=== PATIENT | male | born 1990 | race Caucasian/White ===

== ENCOUNTER 2020-01-28 13:23 | Inpatient (IN) | payer OTHER ==
[~2020-01-28] VITALS: Ht 175.3 cm; Wt 106.7 kg
[2020-01-28] MEDS ORDERED: MIRT1TAB16 PO (13:38)
[2020-01-28] MEDS ORDERED: HYDR-643 PO (13:38)
[2020-01-28] MEDS ORDERED: NS 1,000 ML IV ONE ×2 (14:15→15:00)
[2020-01-28] MEDS ORDERED: ONDANSETRON 4MG/2ML VIAL IV ONE (14:15)
--- NOTE | 2020-01-28 14:30 | REPVR ---
PROCEDURE INFORMATION: Exam: XR Chest, 1 View Exam date and time: 01/28/2020 2:21 PM Age: 29 years old Clinical indication: Shortness of breath; Additional info: Abdominal pain TECHNIQUE: Imaging protocol: XR of the chest Views: 1 view. COMPARISON: No relevant prior studies available. FINDINGS: Lungs: Unremarkable. No consolidation. Pleural space: Unremarkable. No pleural effusion. No pneumothorax. Heart/Mediastinum: Unremarkable. No cardiomegaly. Bones/joints: Unremarkable. IMPRESSION: No acute findings. Electronically signed by: Jennifer Christensen On 01/28/2020 14:31:01 PM
[2020-01-28 14:31] LABS: BASO # 0.1 10^3/uL (0.0-0.2); BASO % 0.4 % (0.0-1.0); EOS # 0.1 10^3/uL (0.0-0.5); EOS % 0.3 % (0.0-3.0); HEMATOCRIT 45.4 % (42.0-52.0); HEMOGLOBIN 16.6 g/dl (13.5-17.5); LYMPH # 2.1 10^3/uL (1.5-5.0); LYMPH % 11.7 % (24.0-44.0); MEAN CORPUSCULAR HEMOGLOBIN 33.3 pg (27.0-33.0); MEAN CORPUSCULAR VOLUME 91.2 fl (80.0-96.0); MONO # 0.9 10^3/uL (0.0-0.8); MONO % 4.8 % (0.0-5.0); NEUTROPHILS % 82.1 % (36.0-66.0); PLATELET COUNT, AUTOMATED 206 10^3/uL (150-450); RED BLOOD COUNT 4.98 10^6/uL (4.30-6.10); WHITE BLOOD COUNT 18.3 10^3/uL (4.0-10.0)
[2020-01-28 14:41] LABS: INR 1.04; PROTHROMBIN TIME 13.8 SECONDS (11.8-14.0)
[2020-01-28 14:42] LABS: PARTIAL THROMBOPLASTIN TIME 23.6 SECONDS (25.0-38.4)
[2020-01-28] MEDS ORDERED: ISOVUE-370 76% 100ML VIAL As Ordered ONE (14:42)
[2020-01-28] MEDS: HYDROMORPHONE HCL 0.5 MG/ 0.5 ML SYRINGE (J1170 PER 1) IV PRN ×2 (14:42→16:07)
[2020-01-28 14:49] LABS: MEAN CORPUSCULAR HGB CONC 36.6 g/dl (32.0-36.5)
[2020-01-28 14:52] LABS: ALBUMIN 4.2 GM/DL (3.2-5.2); ALT/SGPT 46 U/L (12-78); AMYLASE 316 U/L (25-115); BILIRUBIN,DIRECT 0.1 MG/DL (0.0-0.2); BILIRUBIN,TOTAL 0.5 MG/DL (0.2-1.0); CK-MB VALUE MASS < 1.0 NG/ML (<3.6); CPK CREATINE PHOSPHOKINASE 138 U/L (39-308); LIPASE 4086 U/L (73-393); MB/CK RELATIVE INDEX 0.72 (< OR =4); TROPONIN I < 0.02 NG/ML (< 0.10)
--- NOTE | 2020-01-28 15:45 | REPVR ---
PROCEDURE INFORMATION: Exam: CT Abdomen And Pelvis With Contrast Exam date and time: 01/28/2020 3:11 PM Age: 29 years old Clinical indication: Abdominal pain; Additional info: Pancreatitis TECHNIQUE: Imaging protocol: Computed tomography of the abdomen and pelvis with intravenous contrast. Radiation optimization: All CT scans at this facility use at least one of these dose optimization techniques: automated exposure control; mA and/or kV adjustment per patient size (includes targeted exams where dose is matched to clinical indication); or iterative reconstruction. Contrast material: ISO 370; Contrast volume: 100 ml; Contrast route: INTRAVENOUS (IV); COMPARISON: No relevant prior studies available. FINDINGS: Liver: Normal. No mass. Gallbladder and bile ducts: Incidental adenomyomatosis of the gallbladder wall fundus. No calcified stones. No ductal dilation. Pancreas: Moderate peripancreatic edema. No evidence of pancreatic parenchymal necrosis. No loculated peripancreatic fluid collection. Spleen: Normal. No splenomegaly. Adrenals: Normal. No mass. Kidneys and ureters: Normal. No hydronephrosis. Stomach and bowel: There appears to be mild circumferential wall thickening of the 2nd and 3rd portions of the duodenum. Appendix: No evidence of appendicitis. Intraperitoneal space: Unremarkable. No free air. No significant fluid collection. Vasculature: The splenic vein is patent. Lymph nodes: Unremarkable. No enlarged lymph nodes. Bladder: Unremarkable as visualized. Reproductive: Unremarkable as visualized. Bones/joints: Unremarkable. No acute fracture. Soft tissues: Unremarkable. IMPRESSION: 1. Acute edematous pancreas. 2. Mild reactive duodenitis. Electronically signed by: Jennifer Christensen On 01/28/2020 15:45:43 PM
[2020-01-28] MEDS ORDERED: REME30TA PO (16:01)
[2020-01-28] MEDS ORDERED: ONDANSETRON 4MG/2ML VIAL IV PRN (16:30)
[2020-01-28] MEDS: NS 1,000 ML IV SCH (16:30)
--- NOTE | 2020-01-28 16:45 | HPEPDOC ---
General Date of Admission Date of Service: Jan 28, 2020 Chief Complaint The patient is a 29-year-old male admitted with a reason for visit of Abd Pain. Source: Patient Timing/Duration: Day(s) (1-2 days) Severity: Severe Associated Symptoms: Nausea, Vomiting History of Present Illness 29 YO male with PMhx of psych Dx as well hax of pancreatitis in the past, developed insidiously increasing pain in LUQ of abdomen, which is sharp, persistant, non radiating, associated with N/V, not relieved with meds and not exacerbatted by food since last 1 to 2 days. According to pt he drinks infrequently but he drank a pint of hard liquor last night. Home Medications Scheduled Mirtazapine (Remeron) 30 Mg Tablet, 30 MG PO QHS, (Reported) Scheduled PRN Hydroxyzine HCl (Hydroxyzine HCl) 10 Mg Tablet, 10 MG PO Q6H PRN for ANXIETY, (Reported) Allergies Coded Allergies: No Known Allergies (Unverified , 01/28/20) Past Medical History Medical History pancreatitis,psych disorder Family History Significant Family History: No pertinent family hx family history reviewed, no significant history Social History * Smoker: cigarettes Alcohol: rarely Drugs: denies A-FIB/CHADSVASC A-FIB History Current/History of A-Fib/PAF?: No Review of Systems Constitutional: Denies: Chills, Fever, Malaise, Night Sweats, Weakness, Fatigue, Weight Loss, Lethargy, Other Eyes: Denies: Pain, Vision change, Conjunctivae inflammation, Eyelid inflammation, Redness, Other ENT: Denies: Head Aches, Ear Pain, Dysphagia, Sinus Congestion, Post Nasal Drip, Sore Throat, Epistaxis, Other Symptoms Skin: Denies: Rash, Lesions, Jaundice, Bruising, Itching, Dry, Breakdown, Nail Changes, Other Pulmonary: Denies: Dyspnea, Cough, Pleuritic Chest Pain, Other Symptoms Cardiovascular: Denies: Chest Pain, Palpitations, Orthopnea, Paroxysmal Noc. Dyspnea, Edema, Lt Headedness, Other Symptoms Gastrointestinal: Reports: Nausea, Vomiting, Abdominal Pain Genitourinary: Denies: Dysuria, Frequency, Incontinence, Hematuria, Retention, Other Symptoms Hematologic: Denies: Bruising, Bleeding Excessively, Petecchia, Purpura, Enlarged Lymph Nodes, Other Hematologic Endocrine: Denies: Polydipsia, Polyphagia, Polyuria, Heat Intolerance, Cold Intolerance, Other Endocrine Sx Musculoskeletal: Denies: Neck Pain, Back Pain, Shoulder Pain, Arm Pain, Hand Pain, Leg Pain, Foot Pain, Joint Pain, Muscle Pain, Spasms, Other Symptoms Neurological: Denies: Weakness, Numbness, Incoordination, Change in speech, Confusion, Seizures, Other Symptoms Psych: Denies: Mood Normal, Anxiety, Depression, Memory Issues, Thoughts of Self Harm, Anger, Thoughts of Harming Other, Other Psych Physical Examination General Exam: Positive: Alert, Cooperative Eye Exam: Positive: PERRLA, Conjunctiva & lids normal ENT Exam: Positive: Atraumatic Neck Exam: Positive: Supple, JVD Chest Exam: Positive: Clear to auscultation Heart Exam: Positive: Rate Normal, Normal S1, Normal S2 Abdomen Exam: Positive: Normal bowel sounds, Soft, Tenderness (LUQ) Extremity Exam: Positive: Normal pulses Skin Exam: Positive: Nl turgor and temperature Neuro Exam: Positive: Strength at 5/5 X4 ext, Cranial Nerves 3-12 NL Psych Exam: Positive: Mood NL, Oriented x 3 Vital Signs Vital Signs Date Time Temp Pulse Resp B/P (MAP) Pulse Ox O2 Delivery O2 Flow Rate FiO2 01/28/20 16:07 18 135/88 100 01/28/20 13:23 98.4 83 Room Air Laboratory Data Labs 24H Laboratory Tests 2 01/28/20 13:23: Immature Granulocyte % (Auto) 0.7, Neutrophils (%) (Auto) 82.1H, Lymphocytes (%) (Auto) 11.7L, Monocytes (%) (Auto) 4.8, Eosinophils (%) (Auto) 0.3, Basophils (%) (Auto) 0.4, Neutrophils # (Auto) 15.0H, Lymphocytes # (Auto) 2.1, Monocytes # (Auto) 0.9H, Eosinophils # (Auto) 0.1, Basophils # (Auto) 0.1, Nucleated Red Blood Cells % (auto) 0.0, Prothrombin Time 13.8, Prothromb Time International Ratio 1.04, Activated Partial Thromboplast Time 23.6L, Lactic Acid Level 3.4*H, Total Bilirubin 0.5, Direct Bilirubin 0.1, Aspartate Amino Transf (AST/SGOT) 28, Alanine Aminotransferase (ALT/SGPT) 46, Alkaline Phosphatase 99, Total Creatine Kinase 138, Creatine Kinase MB < 1.0, Creatine Kinase MB Relative Index 0.72, Troponin I < 0.02, Total Protein 8.0, Albumin 4.2, Albumin/Globulin Ratio 1.1, Amylase Level 316H, Lipase 4086H CBC/BMP Laboratory Tests 01/28/20 13:23 Problems (1) Acute pancreatitis Status: Acute Plan / VTE VTE Prophylaxis Ordered?: Yes Plan Plan Admit to med/surg floor IVF NS at 100cc/Hr Morphine Sulfate 4mg IVP q 4Hr PRN Zofran 4 mg IVP q 4Hr PRN Protonix 40mg IVP daily Clear liquids Activity as tolerated Urine tox screen and serum Etoh levels Ativan i mg q4 Hr PRN Lovenox for DVT prophylaxis am labs smoking cessation councelling done at bedside ARNULFO DOWLING MD Jan 28, 2020 16:45
[2020-01-28] MEDS: PANTOPRAZOLE 40MG VIAL (C9113 PER 1) IV SCH (17:57)
[2020-01-28] MEDS: MORPHINE 4 MG/ML 1ML VIAL/SYRINGE (J2270) IV PRN ×3 (18:10→23:47)
[2020-01-28] MEDS: LORazepam 2 MG/ML VIAL IV PRN ×2 (19:31→23:48)
[2020-01-28 20:22] LABS: BLOOD UREA NITROGEN 10 MG/DL (7-18); CALCIUM LEVEL 8.4 MG/DL (8.5-10.1); CARBON DIOXIDE LEVEL 26 MEQ/L (21-32); CHLORIDE LEVEL 108 MEQ/L (98-107); CREATININE FOR GFR 0.92 MG/DL (0.70-1.30); ETHYL ALCOHOL (ETHANOL) < 0.003 % (0.000-0.010); GLOMERULAR FILTRATION RATE > 60.0 (>60); GLUCOSE, FASTING 107 MG/DL (70-100); MAGNESIUM LEVEL 1.6 MG/DL (1.8-2.4); POTASSIUM SERUM 3.7 MEQ/L (3.5-5.1); SODIUM LEVEL 139 MEQ/L (136-145)
[2020-01-28 20:43] VITALS: BP 170/107
[2020-01-28] MEDS: ACETAMINOPHEN TAB 650MG DOSE (2X325MG) PO PRN (20:50)
[2020-01-28 22:08] VITALS: BP 136/89
[2020-01-28] MEDS ORDERED: HYDROmorphone 2 MG TAB PO ONE (22:30)
[2020-01-28] MEDS ORDERED: LR 1,500 ML IV SCH (22:45)
[2020-01-28] MEDS: MAG SULF 1GM/100ML (MAG RUN) 1 GM in IV 1 EA IV SCH ×2 (22:55→23:47)
[2020-01-28 23:28] LABS: PHOSPHORUS LEVEL 4.2 MG/DL (2.5-4.9)
[2020-01-29] MEDS: MORPHINE 4 MG/ML 1ML VIAL/SYRINGE (J2270) IV PRN ×5 (04:00→22:50)
[2020-01-29] MEDS: ACETAMINOPHEN TAB 650MG DOSE (2X325MG) PO PRN ×2 (05:52→16:53)
[2020-01-29 06:00] VITALS: BP 116/78
[2020-01-29] MEDS: LORazepam 2 MG/ML VIAL IV PRN (06:07)
[2020-01-29 07:04] LABS: HEMATOCRIT 40.5 % (42.0-52.0); MEAN CORPUSCULAR HGB CONC 35.8 g/dl (32.0-36.5); PLATELET COUNT, AUTOMATED 136 10^3/uL (150-450); WHITE BLOOD COUNT 12.2 10^3/uL (4.0-10.0)
[2020-01-29 07:05] LABS: HEMOGLOBIN 14.5 g/dl (13.5-17.5)
[2020-01-29 07:37] LABS: ALBUMIN 3.2 GM/DL (3.2-5.2); ALT/SGPT 30 U/L (12-78); BLOOD UREA NITROGEN 8 MG/DL (7-18); CALCIUM LEVEL 8.2 MG/DL (8.5-10.1); CARBON DIOXIDE LEVEL 28 MEQ/L (21-32); CHLORIDE LEVEL 104 MEQ/L (98-107); CREATININE FOR GFR 0.91 MG/DL (0.70-1.30); GLOMERULAR FILTRATION RATE > 60.0 (>60); GLUCOSE, FASTING 103 MG/DL (70-100); MAGNESIUM LEVEL 2.2 MG/DL (1.8-2.4); POTASSIUM SERUM 3.7 MEQ/L (3.5-5.1); SODIUM LEVEL 136 MEQ/L (136-145); TOTAL PROTEIN 6.3 GM/DL (6.4-8.2)
[2020-01-29] MEDS ORDERED: ENOXAPARIN 40MG/0.4ML SYRINGE (J1650 PER 10MG) SC SCH (09:00)
[2020-01-29] MEDS: ENOXAPARIN 40MG/0.4ML SYRINGE (J1650 PER 10MG) SC SCH (09:55)
--- NOTE | 2020-01-29 11:09 | IPNPDOC ---
Subjective Date Seen The patient was seen on 01/29/20. Subjective Chief Complaint/HPI Still has abdominal pain but improved with pain meds,tolerating clear liquids General: Denies: ROS Unobtainable, Chills, Night Sweats, Fatigue, Malaise, Normal Appetite, Other Symptoms Constitutional: Denies: Chills, Fever, Malaise, Night Sweats, Weakness, Fatigue, Weight Loss, Lethargy, Other Pulmonary: Denies: Dyspnea, Cough, Pleuritic Chest Pain, Other Symptoms Cardiovascular: Denies: Chest Pain, Palpitations, Orthopnea, Paroxysmal Noc. Dyspnea, Edema, Lt Headedness, Other Symptoms Gastrointestinal: Reports: Abdominal Pain Genitourinary: Denies: Dysuria, Frequency, Incontinence, Hematuria, Retention, Other Symptoms Hematologic: Denies: Bruising, Bleeding Excessively, Petecchia, Purpura, Enlarged Lymph Nodes, Other Hematologic Endocrine: Denies: Polydipsia, Polyphagia, Polyuria, Heat Intolerance, Cold Intolerance, Other Endocrine Sx Musculoskeletal: Denies: Neck Pain, Back Pain, Shoulder Pain, Arm Pain, Hand Pain, Leg Pain, Foot Pain, Joint Pain, Muscle Pain, Spasms, Other Symptoms Neurological: Denies: Weakness, Numbness, Incoordination, Change in speech, Confusion, Seizures, Other Symptoms Objective Physical Examination Chest Exam: Positive: Clear to auscultation Heart Exam: Positive: Rate Normal, Normal S1, Normal S2 Abdomen Exam: Positive: Normal bowel sounds, Soft, Tenderness (positive at LUQ) Extremity Exam: Positive: Normal pulses Skin Exam: Positive: Nl turgor and temperature Neuro Exam: Positive: Strength at 5/5 X4 ext, Cranial Nerves 3-12 NL Assessment /Plan Problems (1) Acute pancreatitis Status: Acute Problem Text: slowly improving symptoms Lipase still pending today IVF NS at 70cc/Hr Morphine Sulfate 4mg IVP q 4Hr PRN Zofran 4 mg IVP q 4Hr PRN Protonix 40mg IVP daily Continue Clear liquids Activity as tolerated Ativan i mg q4 Hr PRN Lovenox for DVT prophylaxis cbc,cmp and lipase in am Abstenence from ETOH: councelling done Plan/VTE VTE Prophylaxis Ordered?: Yes VS, I&O, 24H, Fishbone Vital Signs/I&O Vital Signs Date Time Temp Pulse Resp B/P (MAP) Pulse Ox O2 Delivery O2 Flow Rate FiO2 01/29/20 09:56 18 01/29/20 06:00 98.6 111 116/78 (91) 98 Room Air I&O- Last 24 Hours up to 6 AM 01/29/20 06:00 Intake Total 1400 ml Output Total 650 ml Balance 750 ml Laboratory Data 24H LABS Laboratory Tests 2 01/28/20 13:23: Immature Granulocyte % (Auto) 0.7, Neutrophils (%) (Auto) 82.1H, Lymphocytes (%) (Auto) 11.7L, Monocytes (%) (Auto) 4.8, Eosinophils (%) (Auto) 0.3, Basophils (%) (Auto) 0.4, Neutrophils # (Auto) 15.0H, Lymphocytes # (Auto) 2.1, Monocytes # (Auto) 0.9H, Eosinophils # (Auto) 0.1, Basophils # (Auto) 0.1, Nucleated Red Blood Cells % (auto) 0.0, Prothrombin Time 13.8, Prothromb Time International Ra linda 1.04, Activated Partial Thromboplast Time 23.6L, Lactic Acid Level 3.4*H, Total Bilirubin 0.5, Direct Bilirubin 0.1, Aspartate Amino Transf (AST/SGOT) 28, Alanine Aminotransferase (ALT/SGPT) 46, Alkaline Phosphatase 99, Total Creatine Kinase 138, Creatine Kinase MB < 1.0, Creatine Kinase MB Relative Index 0.72, Troponin I < 0.02, Total Protein 8.0, Albumin 4.2, Albumin/Globulin Ratio 1.1, Amylase Level 316H, Lipase 4086H 01/28/20 19:38: Anion Gap 5L, Glomerular Filtration Rate > 60.0, Calcium Level 8.4L, Phosphorus Level 4.2, Magnesium Level 1.6L, Ethyl Alcohol Level < 0.003 01/28/20 22:48: Urine Color YELLOW, Urine Appearance CLEAR, Urine pH 5.0, Urine Specific [place] 1.031, Urine Protein NEGATIVE, Urine Glucose (UA) NEGATIVE, Urine Ketones N EGATIVE, Urine Blood 1+H, Urine Nitrite NEGATIVE, Urine Bilirubin NEGATIVE, Urine Urobilinogen 0.2, Urine Leukocyte Esterase NEGATIVE, Urine WBC (Auto) 0, Urine RBC (Auto) 0, Urine Hyaline Casts (Auto) 0, Urine Bacteria (Auto) NEGATIVE, Urine Squamous Epithelial Cells 0, Urine Mucus (Auto) SMALL, Urine Sperm (Auto) 01/29/20 00:20: Lactic Acid Level 1.2 01/29/20 05:58: Nucleated Red Blood Cells % (auto) 0.0, Anion Gap 4L, Glomerular Filtration Rate > 60.0, Calcium Level 8.2L, Magnesium Level 2.2, Total Bilirubin 1.0#, Aspartate Amino Transf (AST/SGOT) 20, Alanine Aminotransferase (ALT/SGPT) 30, Alkaline Phosphatase 83, Total Protein 6.3#L, Albumin 3.2#, Albumin/Globulin Ratio 1.0 CBC/BMP Laboratory Tests 01/28/20 13:23 01/28/20 19:38 01/29/20 05:58 Microbiology Microbiology 01/28/20 Blood Culture, Received Pending 01/28/20 Blood Culture, Received Pending ARNULFO DOWLING MD Jan 29, 2020 11:09
[2020-01-29 11:17] LABS: LIPASE 5273 U/L (73-393)
[2020-01-29 14:00] VITALS: BP 151/89
[2020-01-29] MEDS: NS 1,000 ML IV SCH (14:28)
[2020-01-29] MEDS: PANTOPRAZOLE 40MG VIAL (C9113 PER 1) IV SCH (16:53)
[2020-01-29 22:00] VITALS: BP 147/97
[2020-01-30] MEDS: LORazepam 2 MG/ML VIAL IV PRN ×3 (01:07→10:48)
[2020-01-30] MEDS: MORPHINE 4 MG/ML 1ML VIAL/SYRINGE (J2270) IV PRN ×3 (03:20→12:29)
[2020-01-30 06:00] VITALS: BP 149/91
[2020-01-30 06:01] LABS: BASO % 0.3 % (0.0-1.0); EOS # 0.2 10^3/uL (0.0-0.5); EOS % 2.1 % (0.0-3.0); HEMATOCRIT 38.5 % (42.0-52.0); HEMOGLOBIN 13.9 g/dl (13.5-17.5); LYMPH # 1.5 10^3/uL (1.5-5.0); LYMPH % 16.8 % (24.0-44.0); MEAN CORPUSCULAR HEMOGLOBIN 33.1 pg (27.0-33.0); MEAN CORPUSCULAR HGB CONC 36.1 g/dl (32.0-36.5); MEAN CORPUSCULAR VOLUME 91.7 fl (80.0-96.0); MONO # 0.7 10^3/uL (0.0-0.8); MONO % 8.2 % (0.0-5.0); NEUTROPHILS # 6.3 10^3/uL (1.5-8.5); NEUTROPHILS % 72.3 % (36.0-66.0); PLATELET COUNT, AUTOMATED 113 10^3/uL (150-450); WHITE BLOOD COUNT 8.7 10^3/uL (4.0-10.0)
[2020-01-30 06:30] LABS: ALBUMIN 2.7 GM/DL (3.2-5.2); ALT/SGPT 20 U/L (12-78); BILIRUBIN,TOTAL 1.1 MG/DL (0.2-1.0); BLOOD UREA NITROGEN 5 MG/DL (7-18); CALCIUM LEVEL 7.9 MG/DL (8.5-10.1); CARBON DIOXIDE LEVEL 25 MEQ/L (21-32); CHLORIDE LEVEL 106 MEQ/L (98-107); CREATININE FOR GFR 0.89 MG/DL (0.70-1.30); GLOMERULAR FILTRATION RATE > 60.0 (>60); GLUCOSE, FASTING 82 MG/DL (70-100); LIPASE 1510 U/L (73-393); POTASSIUM SERUM 3.8 MEQ/L (3.5-5.1); SODIUM LEVEL 138 MEQ/L (136-145); TOTAL PROTEIN 5.6 GM/DL (6.4-8.2)
[2020-01-30] MEDS: NS 1,000 ML IV SCH (07:52)
[2020-01-30] MEDS: ENOXAPARIN 40MG/0.4ML SYRINGE (J1650 PER 10MG) SC SCH (07:54)
[2020-01-30] MEDS ORDERED: PROT20TA11 PO (09:47)
--- NOTE | 2020-01-30 13:31 | DS.PDOC ---
Discharge Summary General Date of Admission Jan 28, 2020 at 16:22 Date of Discharge 01/30/20 Discharge Summary PROCEDURES PERFORMED DURING STAY: [None]. ADMITTING DIAGNOSES: 1. [acute pancreatitis]. DISCHARGE DIAGNOSES: 1. [acute pancreatitis]. COMPLICATIONS/CHIEF COMPLAINT: Acute Pancreatitis. HISTORY OF PRESENT ILLNESS: [29 YO male with PMhx of psych Dx as well hax of pancreatitis in the past, developed insidiously increasing pain in LUQ of abdomen, which is sharp, persistant, non radiating, associated with N/V, not relieved with meds and not exacerbatted by food since last 1 to 2 days. According to pt he drinks infrequently but he drank a pint of hard liquor last night.]. HOSPITAL COURSE: [Pt was kept NPO and started on IVF. Pt was also started on Morphine Sulfate 4mg IVP q 4Hr PRN ,Zofran 4 mg IVP q 4Hr PRN, and Protonix 40mg IVP daily Pt responded very well to conservative medical management He tolerated oral feeding today, his lipase has decreased to 1510 Pt will be DC home today Abstenence from ETOH: councelling done]. DISCHARGE MEDICATIONS: Please see below. ALLERGIES: Please see below. PHYSICAL EXAMINATION ON DISCHARGE: VITAL SIGNS: Please see below. GENERAL: [WNL] HEENT: [[place]/EOMI] NECK: [Supple] CARDIOVASCULAR EXAMINATION: [Si S2 regular] RESPIRATORY EXAMINATION: [Clear to A&P] ABDOMINAL EXAMINATION: [Benign] EXTREMITIES: [No CCE] SKIN: [NL] NEUROLOGICAL EXAMINATION: [no focal deficit] PSYCHIATRIC EXAMINATION: [NL] LABORATORY DATA: Please see below. IMAGING: [CT abd:IMPRESSION: 1. Acute edematous pancreas. 2. Mild reactive duodenitis] PROGNOSIS: [good] ACTIVITY: [As tolerated]. DIET: [as tolerated] DISCHARGE PLAN: [home] DISPOSITION: 01 Home, Self-Care. DISCHARGE INSTRUCTIONS: 1. [as above]. ITEMS TO FOLLOWUP ON ON OUTPATIENT: 1. [as above]. DISCHARGE CONDITION: [Stable]. TIME SPENT ON DISCHARGE: 35 minutes. Vital Signs/I&Os Vital Signs Date Time Temp Pulse Resp B/P (MAP) Pulse Ox O2 Delivery O2 Flow Rate FiO2 01/30/20 12:39 20 Room Air 01/30/20 06:00 99.3 102 149/91 (110) 95 I&O- Last 24 Hours up to 6 AM 01/30/20 06:00 Intake Total 2600 ml Output Total 1450 ml Balance 1150 ml Laboratory Data Labs 24H Laboratory Tests 2 01/30/20 05:15: Immature Granulocyte % (Auto) 0.3, Neutrophils (%) (Auto) 72.3H, Lymphocytes (%) (Auto) 16.8L, Monocytes (%) (Auto) 8.2H, Eosinophils (%) (Auto) 2.1, Basophils (%) (Auto) 0.3, Neutrophils # (Auto) 6.3, Lymphocytes # (Auto) 1.5, Monocytes # (Auto) 0.7, Eosinophils # (Auto) 0.2, Basophils # (Auto) 0.0, Nucleated Red Blood Cells % (auto) 0.0, Anion Gap 7L, Glomerular Filtration Rate > 60.0, Calcium Level 7.9L, Total Bilirubin 1.1H, Aspartate Amino Transf (AST/SGOT) 17, Alanine Aminotransferase (ALT/SGPT) 20, Alkaline Phosphatase 74, Total Protein 5.6L, Albumin 2.7L, Albumin/Globulin Ratio 0.9, Lipase 1510H 01/30/20 08:51: Lab Scanned Report Miscellaneous Lab CBC/BMP Laboratory Tests 01/30/20 05:15 Microbiology Microbiology 01/28/20 Blood Culture - Preliminary, Resulted No growth after 24 hours . All specim... 01/28/20 Blood Culture - Preliminary, Resulted No growth after 24 hours . All specim... Discharge Medications Scheduled Mirtazapine (Remeron) 30 Mg Tablet, 30 MG PO QHS, (Reported) Pantoprazole Sodium (Protonix) 20 Mg Tablet.dr, 20 MG PO DAILY Scheduled PRN Hydroxyzine HCl (Hydroxyzine HCl) 10 Mg Tablet, 10 MG PO Q6H PRN for ANXIETY, (Reported) Allergies Coded Allergies: No Known Allergies (Unverified , 01/28/20) ARNULFO DOWLING MD Jan 30, 2020 13:31
--- NOTE | 2020-02-17 14:02 | ECGEPIP ---
[facility] - ED Test Date: 2020-01-28 Pat Name: ANN OCONNOR Department: Room: [place] [address] Gender: Male Eyeglass Cutter: ANAMARIA : 1990 Requested By: Arcadio Montero Order Number: [id number] Reading MD: Arcadio Montero Measurements Intervals [place] Rate: 75 P: 58 SC: 162 QRS: 37 QRSD: 101 T: 42 QT: 385 QTc: 432 Interpretive Statements SINUS RHYTHM NORMAL ECG DOWNTIME NO PRIOR SEE SCANNED DOWNTIME REPORT
== END 2020-01-30 12:42 | disposition home or self-care (01) | DRG 440 ==
LOC: M ED 13:23 → M ED INP 16:22 → M MS5PR 20:43
PROVIDERS: ADMIT Internal Medicine; ATTEND Internal Medicine
DX: K85.90 Acute pancreatitis without necrosis or infection, unspecified (principal)

== ENCOUNTER 2020-02-01 04:08 | Emergency (ER) | payer OTHER ==
[~2020-02-01] VITALS: Ht 175.3 cm; Wt 104.5 kg
[~2020-02-01 04:08] MED LIST: HYDR-643 PO; MIRT1TAB16 PO; PROT20TA11 PO; REME30TA PO
[2020-02-01 04:34] LABS: BASO % 0.3 % (0.0-1.0); EOS # 0.2 10^3/uL (0.0-0.5); EOS % 2.6 % (0.0-3.0); HEMATOCRIT 38.4 % (42.0-52.0); HEMOGLOBIN 13.7 g/dl (13.5-17.5); LYMPH # 1.3 10^3/uL (1.5-5.0); LYMPH % 16.6 % (24.0-44.0); MEAN CORPUSCULAR HEMOGLOBIN 32.2 pg (27.0-33.0); MEAN CORPUSCULAR HGB CONC 35.7 g/dl (32.0-36.5); MEAN CORPUSCULAR VOLUME 90.1 fl (80.0-96.0); MONO # 0.5 10^3/uL (0.0-0.8); NEUTROPHILS # 5.7 10^3/uL (1.5-8.5); NEUTROPHILS % 74.2 % (36.0-66.0); PLATELET COUNT, AUTOMATED 161 10^3/uL (150-450); RED BLOOD COUNT 4.26 10^6/uL (4.30-6.10); WHITE BLOOD COUNT 7.7 10^3/uL (4.0-10.0)
[2020-02-01 05:08] LABS: ALT/SGPT 23 U/L (12-78); BLOOD UREA NITROGEN 9 MG/DL (7-18); CALCIUM LEVEL 8.7 MG/DL (8.5-10.1); CARBON DIOXIDE LEVEL 24 MEQ/L (21-32); CHLORIDE LEVEL 108 MEQ/L (98-107); CREATININE FOR GFR 0.92 MG/DL (0.70-1.30); GLOMERULAR FILTRATION RATE > 60.0 (>60); GLUCOSE, FASTING 122 MG/DL (70-100); POTASSIUM SERUM 3.4 MEQ/L (3.5-5.1); SODIUM LEVEL 142 MEQ/L (136-145)
[2020-02-01 05:09] LABS: ALBUMIN 3.1 GM/DL (3.2-5.2); BILIRUBIN,DIRECT 0.2 MG/DL (0.0-0.2); BILIRUBIN,TOTAL 0.4 MG/DL (0.2-1.0); LIPASE 580 U/L (73-393)
[2020-02-01] MEDS ORDERED: NS 1,000 ML IV ONE (05:15)
[2020-02-01 05:32] VITALS: BP 154/67
[2020-02-01] MEDS ORDERED: KETOROLAC 30 MG/ML 1ML VIAL IV ONE (06:15)
== END 2020-02-01 06:32 | disposition home or self-care (01) ==
LOC: M ED 04:08
DX: R10.9 Unspecified abdominal pain (principal); Z87.19 Personal history of other diseases of the digestive system; R11.0 Nausea; K21.9 Gastro-esophageal reflux disease without esophagitis; F43.10 Post-traumatic stress disorder, unspecified; F17.210 Nicotine dependence, cigarettes, uncomplicated; Z79.899 Other long term (current) drug therapy
CPT/HCPCS: 80048; 80076; 83690; 85025; 96361; 96374; 99284; J1885

== ENCOUNTER 2020-03-12 16:08 | Inpatient (IN) | payer OTHER ==
[~2020-03-12] VITALS: Ht 175.3 cm; Wt 108.2 kg
[2020-03-12] MEDS ORDERED: LORazepam 2 MG/ML VIAL IV STA (16:43)
[2020-03-12] MEDS ORDERED: METOCLOPRAMIDE INJ 10MG/2ML VIAL (J2765 PER 1) IV ONE (16:45)
[2020-03-12] MEDS ORDERED: KETOROLAC 30 MG/ML 1ML VIAL IV ONE (16:45)
[2020-03-12] MEDS ORDERED: THIAMINE 200MG/2ML VIAL (J3411 PER 100MG) IM ONE (16:45)
[2020-03-12] MEDS ORDERED: NS 1,000 ML IV ONE (16:45)
[2020-03-12 16:59] LABS: BASO % 0.3 % (0.0-1.0); EOS % 0.4 % (0.0-3.0); HEMATOCRIT 47.4 % (42.0-52.0); HEMOGLOBIN 16.6 g/dl (13.5-17.5); LYMPH # 1.1 10^3/uL (1.5-5.0); LYMPH % 9.9 % (24.0-44.0); MEAN CORPUSCULAR HEMOGLOBIN 31.9 pg (27.0-33.0); MEAN CORPUSCULAR VOLUME 91.2 fl (80.0-96.0); MONO # 0.8 10^3/uL (0.0-0.8); MONO % 6.9 % (0.0-5.0); NEUTROPHILS # 9.3 10^3/uL (1.5-8.5); PLATELET COUNT, AUTOMATED 183 10^3/uL (150-450); WHITE BLOOD COUNT 11.3 10^3/uL (4.0-10.0)
[2020-03-12] MEDS ORDERED: ISOVUE-370 76% 100ML VIAL As Ordered ONE (17:19)
[2020-03-12 17:30] LABS: BILIRUBIN,DIRECT 0.5 MG/DL (0.0-0.2); BILIRUBIN,TOTAL 1.9 MG/DL (0.2-1.0)
[2020-03-12] MEDS ORDERED: ONDANSETRON 4MG/2ML VIAL IV PRN (18:00)
[2020-03-12] MEDS: NS 1,000 ML IV SCH (18:00)
[2020-03-12] MEDS ORDERED: LORazepam 2 MG TAB PO PRN (18:00)
[2020-03-12] MEDS ORDERED: MORPHINE 2 MG/ML 1ML VIAL (J2270) IV PRN (18:00)
[2020-03-12] MEDS ORDERED: PANT20TA51 PO (18:04)
--- NOTE | 2020-03-12 18:05 | HPEPDOC ---
[facility] Medical History & Physical Date of Admission Mar 12, 2020 Date of Service: Mar 12, 2020 Attending Physician: Nidhi Lewis MD History and Physical CHIEF COMPLAINT: abdominal pain, n/v HISTORY OF PRESENT ILLNESS: Patient is a 29-year-old male with past nuchal history of alcohol abuse, obesity , history of bilateral pulmonary emboli (2017) and history of alcohol-induced pancreatitis (last admission ) presented to [facility] emergency room with 3 days of worsening abdominal pain, nausea, vomiting. As per the patient, he drank 1 pint of liquor a day over the weekend. He noticed 3 days ago an acute onset of a left upper quadrant abdominal pain which radiated to the back. He described the pain as sharp, 9/10, radiating to the lower back, constant, worse with movement, similar to his last admission for pancreatitis. Vomiting was nonbloody and he has been unable to keep food or fluid down for 3 days. Other associated symptoms include lightheadedness, feeling feverish, chills, shortness of breath with pain worsening. ROS below. The patient's last drink was on and 03/08/2020. Today he came to the emergency room due to worsening pain. In the emergency room, vital signs showed heart rate [address]139, otherwise normal. CT abdomen and pelvis was done and pending results. Lipase was 4000, WBC mildly elevated. On exam the patient had severe left upper quadrant pain on palpation of his abdomen. There were no signs of alcohol withdrawal. The patient was given morphine for pain. The patient was ultimately admitted under inpatient status for acute pancreatitis likely secondary to alcohol abuse. REVIEW OF SYSTEMS: CONSTITUTIONAL: Denies l unexplained weight gain or weight loss, night sweats EYES: Denies eye drainage, eye pain, visual changes, dry/irritated eye EARS, NOSE, MOUTH, THROAT: Denies difficulty hearing, ringing in ears, mouth sores, loose teeth, sore throat, facial numbness or pain NECK: Denies swollen glands CARDIOVASCULAR: Denies irregular heartbeat, racing heart, chest pains, swelling of feet or legs, pain in legs with walking RESPIRATORY: Denies night sweats, wheezing, sputum production, oxygen at home, coughing up blood, cough lasting > 1 month GASTROINTESTINAL: Denies constipation, bloody stool, diarrhea GENITOURINARY: Denies painful urination, bloody urine, frequent urination, urgency, leaking urine, impotence MUSCULOSKELETAL: Denies joint pain, muscle pain, leg swelling INTEGUMENTARY: Denies rash, itching, new skin lesion, change in existing skin lesion, hair loss or increase, breast changes. NEUROLOGICAL: Denies headaches, difficulty walking, numbness or tingling PSYCHIATRIC: Denies depression, anxiety, recurrent bad thoughts, mood swings, hallucinations PAST MEDICAL HISTORY: 1. Hx of pancreatitis 2. alcohol abuse hx 3. tobacco use 4. Hx bilateral pulmonary emboli (2017, previously on AC but taken off 6 mo later) PAST SURGICAL HISTORY: Pin placement in the left wrist Dental surgery FAMILY HISTORY: Father: Healthy, alive. Mother: healthy , Alive. SOCIAL HISTORY: One pack per day every 23 days smoker for the past 10 years. Denies drug use currently and in the past. Ring's alcohol 1. per night on the weekends. Last drink was this past Monday. He lives in [place], he has no PCP and he is currently employed full-time. He is a full code. ALLERGIES: Please see below. HOME MEDICATIONS: Please see below. PHYSICAL EXAMINATION: VS: Please see below CONSTITUTIONAL: No acute distress, resting comfortably, AAO x 3 EYES: PERRLA, EOM intact HENT, MOUTH: Normocephalic, atraumatic, moist mucous membranes, NECK: SUPPLE, no JVD, no lymphadenopathy, no carotid bruit CV: Regular rate and rhythm, S1S2 normal, no murmurs/rubs/gallops RESPIRATORY: Clear to auscultation bilaterally, no rales/rhonchi/wheezes GI: tenderness to touch in LLQ, epigastric and LUQ. BS positive in 4 quadrants, soft, nondistended, no rebound or guarding, no organomegaly : Deferred MUSCULOSKELETAL: Normal ROM. No cyanosis, clubbing, swelling, joint deformity, extremity edema INTEGUMENTARY: Intact, no rashes, no lesions, no erythema NEUROLOGIC: Cranial Nerves II-XII are intact, no focal deficits PSYCHIATRIC: Mood and affect are normal LABORATORY DATA: Please see below IMAGING: CT abd/pelvis pending. ASSESSMENT: Patient is a 29-year-old male with past nuchal history of alcohol abuse, obesity, history of bilateral pulmonary emboli (2017) and history of alcohol-induced pancreatitis (last admission ) admitted for acute pancreatitis likely secondary to alcohol abuse. PLAN: 1. Acute recurrent pancreatitis secondary to alcohol abuse -Lipase >4K, severe abdominal pain on palp of LUQ occurred after heavy drinking -CT abd/pelvis pending-f/u results -NPO, IVFs at 125 cc/hr, morphine PRN for pain. Advance diet as pain improves 2. Alcohol abuse -Last drink 03/08/20. -IVFs, CIWA protocol: ativan, thiamine, folic acid, MV, CIWA scale 3. Tobacco use -Does not wish to have nicotine patch 4. Hx of b/l pulmonary emboli (2017) -Treated with 6 months of anticoagulation and was told he could stop -Denies chest pain, shortness of breath currently 5. GI px -PPI 6. DVT px -Lovenox DISPOSITION: Admitted under inpatient status. Plan is discharge home when medically improved. Will need information on PCP's in the area and AA, alcohol rehabilitation at discharge. Vital Signs Vital Signs Date Time Temp Pulse Resp B/P (MAP) Pulse Ox O2 Delivery O2 Flow Rate FiO2 03/12/20 17:52 98.0 93 16 146/92 (110) 98 Room Air Laboratory Data Labs 24H Laboratory Tests 2 03/12/20 16:37: POC Glucose (Misc Panel) 114H, POC Sodium (Misc Panel) 138, POC Potassium (Misc Panel) 3.9, POC Chloride (Misc Panel) 99, POC Total CO2 (Misc Panel) 25.0, POC Blood Urea Nitrogen (Misc Panel 8, POC Ionized Calcium (Misc Panel) 4.8, POC Creatinine (Misc Panel) 1.0, POC Hematocrit (Misc Panel) 52.0H 03/12/20 16:42: Immature Granulocyte % (Auto) 0.5, Neutrophils (%) (Auto) 82.0H, Lymphocytes (%) (Auto) 9.9L, Monocytes (%) (Auto) 6.9H, Eosinophils (%) (Auto) 0.4, Basophils (%) (Auto) 0.3, Neutrophils # (Auto) 9.3H, Lymphocytes # (Auto) 1.1L, Monocytes # (Auto) 0.8, Eosinophils # (Auto) 0.0, Basophils # (Auto) 0.0, Nucleated Red Blood Cells % (auto) 0.0, Total Bilirubin 1.9H, Direct Bilirubin 0.5H, Aspartate Amino Transf (AST/SGOT) 20, Alanine Aminotransferase (ALT/SGPT) 28, Alkaline Phosphatase 131H, Total Protein 8.0, Albumin 4.0, Albumin/Globulin Ratio 1.0, Lipase 4144H CBC/BMP Laboratory Tests 03/12/20 16:42 Home Medications Scheduled Mirtazapine (Remeron) 30 Mg Tablet, 30 MG PO QHS Pantoprazole Sodium (Pantoprazole Sodium) 20 Mg Tablet.dr, 20 MG PO DAILY Scheduled PRN Hydroxyzine HCl (Hydroxyzine HCl) 10 Mg Tablet, 10 MG PO Q6H PRN for ANXIETY Allergies Coded Allergies: No Known Allergies (Unverified , 01/28/20) A-FIB/CHADSVASC A-FIB History Current/History of A-Fib/PAF?: No Current PO Anticoag Therapy: No Age/Risk Factor Scoring CHADSVASC: CHADSVASC Response (Comments) Value Age Risk Factor Age < 65 years old 0 Gender Risk Factor Male 0 Hx of CHF No 0 Hx of HTN No 0 Hx of Stroke/TIA/or VTE No 0 Hx of Diabetes No 0 Hx of Vascular Disease No 0 Total 0 Treatment Treatment ordered: Other Other anticoagulant ordered: Nidhi Hsu MD Mar 12, 2020 18:05
[2020-03-12] MEDS ORDERED: MORPHINE 4 MG/ML 1ML VIAL/SYRINGE (J2270) IV PRN (18:45)
--- NOTE | 2020-03-12 18:47 | REPVR ---
PROCEDURE INFORMATION: Exam: CT Abdomen And Pelvis With Contrast Exam date and time: 03/12/2020 5:14 PM Age: 29 years old Clinical indication: Abdominal pain; Additional info: Abd pain TECHNIQUE: Imaging protocol: Computed tomography of the abdomen and pelvis with intravenous contrast. Radiation optimization: All CT scans at this facility use at least one of these dose optimization techniques: automated exposure control; mA and/or kV adjustment per patient size (includes targeted exams where dose is matched to clinical indication); or iterative reconstruction. Contrast material: ISOVUE 370; Contrast volume: 100 ml; Contrast route: INTRAVENOUS (IV); COMPARISON: CT ABD/PEL W/IV CONTRAST ONLY 01/28/2020 3:05 PM FINDINGS: Lungs: Clear appearing lung bases. Liver: Normal appearing liver. Gallbladder and bile ducts: Normal gallbladder. There is a fold at the distal end of the gallbladder. Common bile duct is normal in size. Pancreas: There is hazy increased density along the margins of the pancreas consistent with pancreatitis with a small amount of surrounding phlegmon/inflammation. Spleen: Normal spleen. Adrenals: Normal appearing adrenal glands. Kidneys and ureters: There is enhancement of both kidneys. And no evidence of hydronephrosis. Stomach and bowel: No evidence of bowel obstruction. Appendix: Normal appearing appendix. Retroperitoneal space: There is a small amount of fluid tracking along gerotas fascia on the left and a amount of loculated fluid at the left pelvis. Vasculature: There is opacification of the SMA. There is opacification of the aorta which appears intact. Lymph nodes: There are small lymph nodes along the aorta. Urinary bladder: Normal urinary bladder. Reproductive: Unremarkable as visualized. Bones/joints: There is moderate posterior disc protrusion L5-S1. Soft tissues: Unremarkable. Other findings: There is opacification of the SMV. IMPRESSION: There is inflammation/phlegmon along the margins of the entire pancreas consistent with changes of pancreatitis. This also tracks along the margins of the stomach and duodenal bulb and Gerotas fascia on the left. There is a small loculation of fluid left pelvis as well. Electronically signed by: Jacob Santana On 03/12/2020 18:46:50 PM
[2020-03-12 20:30] VITALS: BP 143/93
[2020-03-12 21:00] VITALS: BP 143/93
[2020-03-12] MEDS ORDERED: ACETAMINOPHEN TAB 650MG DOSE (2X325MG) PO ONE (21:45)
[2020-03-12] MEDS: THIAMINE 100 MG TAB PO SCH (21:49)
[2020-03-12] MEDS: MORPHINE 2 MG/ML 1ML VIAL (J2270) IV PRN (22:48)
[2020-03-13] MEDS: MORPHINE 2 MG/ML 1ML VIAL (J2270) IV PRN ×2 (02:52→08:06)
[2020-03-13] MEDS: NS 1,000 ML IV SCH ×3 (03:52→19:00)
[2020-03-13 04:00] VITALS: BP 141/92
[2020-03-13 05:22] LABS: HEMATOCRIT 39.6 % (42.0-52.0); MEAN CORPUSCULAR HEMOGLOBIN 32.3 pg (27.0-33.0); MEAN CORPUSCULAR HGB CONC 34.6 g/dl (32.0-36.5); MEAN CORPUSCULAR VOLUME 93.4 fl (80.0-96.0); PLATELET COUNT, AUTOMATED 117 10^3/uL (150-450); RED BLOOD COUNT 4.24 10^6/uL (4.30-6.10); WHITE BLOOD COUNT 7.8 10^3/uL (4.0-10.0)
[2020-03-13 05:26] LABS: HEMOGLOBIN 13.7 g/dl (13.5-17.5)
[2020-03-13 05:57] LABS: ALT/SGPT 21 U/L (12-78); BILIRUBIN,TOTAL 1.3 MG/DL (0.2-1.0); BLOOD UREA NITROGEN 8 MG/DL (7-18); CALCIUM LEVEL 7.8 MG/DL (8.5-10.1); CARBON DIOXIDE LEVEL 25 MEQ/L (21-32); CHLORIDE LEVEL 107 MEQ/L (98-107); CREATININE FOR GFR 0.88 MG/DL (0.70-1.30); GLOMERULAR FILTRATION RATE > 60.0 (>60); GLUCOSE, FASTING 88 MG/DL (70-100); POTASSIUM SERUM 3.7 MEQ/L (3.5-5.1); SODIUM LEVEL 141 MEQ/L (136-145); TOTAL PROTEIN 6.3 GM/DL (6.4-8.2)
--- NOTE | 2020-03-13 07:26 | ECGEPIP ---
[facility] - ED Test Date: 2020-03-12 Pat Name: ANN OCONNOR Department: Room: - Gender: Male [employer] Operator: [facility] : 1990 Requested By: Di Hickman Order Number: [id number] Reading MD: John Maxwell Measurements Intervals Sandy Rate: 114 P: 44 MO: 152 QRS: 10 QRSD: 96 T: 23 QT: 300 QTc: 415 Interpretive Statements SINUS TACHYCARDIA NSTTW ABNORMALITY(S) RATE CHANGE COMPARED TO 01/28/20 Electronically Signed on 03-13-2020 7:25:54 EDT by John Maxwell
[2020-03-13 08:00] VITALS: BP 163/92
[2020-03-13] MEDS: FOLIC ACID 1 MG TAB PO SCH (08:04)
[2020-03-13] MEDS: MULTIVITAMINS/MINERALS THERAP 1 TAB PO SCH (08:05)
[2020-03-13] MEDS: THIAMINE 100 MG TAB PO SCH ×2 (08:05→20:15)
[2020-03-13] MEDS ORDERED: ENOXAPARIN 40MG/0.4ML SYRINGE (J1650 PER 10MG) SC SCH (09:00)
[2020-03-13 12:00] VITALS: BP 163/92
[2020-03-13] MEDS: MORPHINE 4 MG/ML 1ML VIAL/SYRINGE (J2270) IV PRN ×3 (12:08→20:15)
[2020-03-13] MEDS ORDERED: MORPHINE 4 MG/ML 1ML VIAL/SYRINGE (J2270) IV PRN (14:00)
--- NOTE | 2020-03-13 15:22 | IPNPDOC ---
Date Seen The patient was seen on 03/13/20. Progress Note SUBJECTIVE: Pain uncontrolled this a.m. Surgery evaluated due to loculated areas seen in the left pelvis. They do not believe this is an area that needs to be drained but could be secondary to the inflammation from the pancreatitis. Increased IV fluids to 150 mL per hour, just the pain medications. He remains NPO. OBJECTIVE PHYSICAL EXAMINATION: VS: Please see below CONSTITUTIONAL: No acute distress, resting comfortably, AAO x 3 EYES: PERRLA, EOM intact HENT, MOUTH: Normocephalic, atraumatic, moist mucous membranes, NECK: SUPPLE, no JVD, no lymphadenopathy, no carotid bruit CV: Regular rate and rhythm, S1S2 normal, no murmurs/rubs/gallops RESPIRATORY: Clear to auscultation bilaterally, no rales/rhonchi/wheezes GI: tenderness to touch in LLQ, epigastric and LUQ, left flank not extending into the back. BS positive in 4 quadrants, soft, nondistended, no rebound or guarding, no organomegaly : Deferred MUSCULOSKELETAL: Normal ROM. No cyanosis, clubbing, swelling, joint deformity, extremity edema INTEGUMENTARY: Intact, no rashes, no lesions, no erythema NEUROLOGIC: Cranial Nerves II-XII are intact, no focal deficits PSYCHIATRIC: Mood and affect are normal LABORATORY DATA: Please see below IMAGING: CT abd/pelvis: There is inflammation/phlegmon along the margins of the entire pancreas consistent with changes of pancreatitis. This also tracks along the margins of the stomach and duodenal bulb and Gerotas fascia on the left. There is a small loculation of fluid left pelvis as well. ASSESSMENT: Patient is a 29-year-old male with past nuchal history of alcohol abuse, obesity, history of bilateral pulmonary emboli (2017) and history of alcohol-induced pancreatitis (last admission ) admitted for acute pancreatitis likely secondary to alcohol abuse. PLAN: 1. Acute recurrent pancreatitis secondary to alcohol abuse -Lipase >4K, severe abdominal pain on palp of LUQ remains -CT abd/pelvis above. Loculation of fluid mentioned in left pelvis is not believed to be a true area of loculation by general surgery (Dr. Sy consulted to see). -NPO, IVFs increased to 150 cc/hr, morphine PRN for pain was increased -Advance diet as pain improves 2. Alcohol abuse -Last drink 03/08/20. -No signs/symptoms of alcohol wirhdrawl -IVFs, CIWA protocol: ativan, thiamine, folic acid, MV, CIWA scale 3. Tobacco use -Does not wish to have nicotine patch 4. Hx of b/l pulmonary emboli (2017) -Treated with 6 months of anticoagulation and was told he could stop -Denies chest pain, shortness of breath currently 5. GI px -PPI 6. DVT px -Lovenox DISPOSITION: Admitted under inpatient status. Plan is discharge home when medically improved. Will need information on PCP's in the area and AA, alcohol rehabilitation at discharge. VS, I&O, 24H, Fishbone Vital Signs/I&O Vital Signs Date Time Temp Pulse Resp B/P (MAP) Pulse Ox O2 Delivery O2 Flow Rate FiO2 03/13/20 12:18 18 03/13/20 12:08 Room Air 03/13/20 08:06 99 03/13/20 08:00 80 163/92 03/13/20 08:00 98.9 I&O- Last 24 Hours up to 6 AM 03/13/20 06:00 Intake Total 3125 ml Output Total 200 ml Balance 2925 ml Laboratory Data 24H LABS Laboratory Tests 2 03/12/20 16:37: POC Glucose (Misc Panel) 114H, POC Sodium (Misc Panel) 138, POC Potassium (Misc Panel) 3.9, POC Chloride (Misc Panel) 99, POC Total CO2 (Misc Panel) 25.0, POC Blood Urea Nitrogen (Misc Panel 8, POC Ionized Calcium (Misc Panel) 4.8, POC Creatinine (Misc Panel) 1.0, POC Hematocrit (Misc Panel) 52.0H 03/12/20 16:42: Immature Granulocyte % (Auto) 0.5, Neutrophils (%) (Auto) 82.0H, Lymphocytes (%) (Auto) 9.9L, Monocytes (%) (Auto) 6.9H, Eosinophils (%) (Auto) 0.4, Basophils (%) (Auto) 0.3, Neutrophils # (Auto) 9.3H, Lymphocytes # (Auto) 1.1L, Monocytes # (Auto) 0.8, Eosinophils # (Auto) 0.0, Basophils # (Auto) 0.0, Nucleated Red Blood Cells % (auto) 0.0, Total Bilirubin 1.9H, Direct Bilirubin 0.5H, Aspartate Amino Transf (AST/SGOT) 20, Alanine Aminotransferase (ALT/SGPT) 28, Alkaline Phosphatase 131H, Total Protein 8.0, Albumin 4.0, Albumin/Globulin Ratio 1.0, Lipase 4144H 03/12/20 18:35: Lactic Acid Level 0.8 03/13/20 04:46: Nucleated Red Blood Cells % (auto) 0.0, Total Bilirubin 1.3H, Aspartate Amino Transf (AST/SGOT) 15, Alanine Aminotransferase (ALT/SGPT) 21, Alkaline Phosphatase 100, Total Protein 6.3#L, Albumin 3.0#L, Albumin/Globulin Ratio 0.9, Anion Gap 9, Glomerular Filtration Rate > 60.0, Calcium Level 7.8L CBC/BMP Laboratory Tests 03/12/20 16:42 03/13/20 04:46 Current Medications Current Medications Medications (Trade) Dose Ordered Sig/Haylee Route PRN Reason Start Time Stop Time Status Last Admin Dose Admin Enoxaparin Sodium (Lovenox) 40 mg DAILY SC 03/13/20 09:00 03/13/20 10:48 Folic Acid (Folic Acid) 1 mg DAILY PO 03/13/20 09:00 03/13/20 08:04 Home Med (Med Rec Complete!) ASDIRECTED XX 03/12/20 18:15 03/12/20 18:21 DC Lorazepam (Ativan) 1 mg STAT STAT IV 03/12/20 16:43 03/12/20 16:44 DC 03/12/20 17:13 Lorazepam (Ativan) 2 mg ASDIRECTED PRN PO SEE PROTOCOL 03/12/20 18:00 Morphine Sulfate (Morphine Sulfate Inj) 1 mg Q4H PRN IV MODERATE PAIN (PS 5-7) 03/12/20 18:00 03/12/20 18:41 DC 03/12/20 18:31 Morphine Sulfate (Morphine Sulfate Inj) 2 mg Q4H PRN IV MODERATE PAIN (PS 5-7) 03/12/20 22:00 03/13/20 10:18 DC 03/13/20 08:06 Morphine Sulfate (Morphine Sulfate Inj) 4 mg Q4H PRN IV MODERATE PAIN (PS 5-7) 03/13/20 12:00 03/13/20 12:08 Morphine Sulfate (Morphine Sulfate Inj) 4 mg Q6HP PRN IV SEVERE PAIN (PS 8-10) 03/12/20 18:45 03/13/20 10:19 DC Morphine Sulfate (Morphine Sulfate Inj) 6 mg Q6HP PRN IV SEVERE PAIN (PS 8-10) 03/13/20 14:00 Multivitamins (Theragram-M) 1 tab DAILY PO 03/13/20 09:00 03/13/20 08:05 Ondansetron HCl (ZOFRAN INJection) 4 mg Q4HP PRN IV NAUSEA OR VOMITING 03/12/20 18:00 Sodium Chloride 1,000 ml @ 125 mls/hr Q8H IV 03/12/20 18:00 03/13/20 10:47 Thiamine HCl (Thiamine HCl) 100 mg BID PO 03/12/20 19:30 03/15/20 09:01 03/13/20 08:05 Allergies Coded Allergies: No Known Allergies (Unverified , 01/28/20) Nidhi Lewis MD Mar 13, 2020 15:22
[2020-03-13 16:00] VITALS: BP 146/86
[2020-03-13 16:37] VITALS: BP 142/88
[2020-03-13 22:00] VITALS: BP 139/88
[2020-03-14] MEDS: NS 1,000 ML IV SCH ×4 (00:17→22:21)
[2020-03-14] MEDS: MORPHINE 4 MG/ML 1ML VIAL/SYRINGE (J2270) IV PRN ×2 (00:17→04:20)
[2020-03-14 06:00] VITALS: BP 137/78
[2020-03-14 06:17] LABS: HEMATOCRIT 36.8 % (42.0-52.0); HEMOGLOBIN 12.5 g/dl (13.5-17.5); MEAN CORPUSCULAR HEMOGLOBIN 32.1 pg (27.0-33.0); MEAN CORPUSCULAR VOLUME 94.6 fl (80.0-96.0); PLATELET COUNT, AUTOMATED 104 10^3/uL (150-450); RED BLOOD COUNT 3.89 10^6/uL (4.30-6.10); WHITE BLOOD COUNT 6.3 10^3/uL (4.0-10.0)
[2020-03-14 06:44] LABS: ALBUMIN 2.9 GM/DL (3.2-5.2); ALT/SGPT 17 U/L (12-78); BILIRUBIN,TOTAL 1.2 MG/DL (0.2-1.0); BLOOD UREA NITROGEN 8 MG/DL (7-18); CARBON DIOXIDE LEVEL 23 MEQ/L (21-32); CHLORIDE LEVEL 108 MEQ/L (98-107); CREATININE FOR GFR 0.75 MG/DL (0.70-1.30); GLOMERULAR FILTRATION RATE > 60.0 (>60); GLUCOSE, FASTING 62 MG/DL (70-100); SODIUM LEVEL 138 MEQ/L (136-145); TOTAL PROTEIN 6.2 GM/DL (6.4-8.2)
[2020-03-14 08:00] LABS: LIPASE 1146 U/L (73-393)
[2020-03-14] MEDS ORDERED: MORPHINE 4 MG/ML 1ML VIAL/SYRINGE (J2270) IV PRN (08:30)
--- NOTE | 2020-03-14 08:37 | IPNPDOC ---
Text Note Date of Service The patient was seen on 03/14/20. NOTE No acute events overnight. Denies nausea, emesis, or fevers. The lower abd pain is much improved, but he is still sore in the top of the abdomen. Urine output has increased. VSSAF NAD abd - soft, TTP epigastric and in the LUQ. LLQ pain is gone, no rebound or guarding labs - below A) 29y/o male with alcoholic pancreatitis that is resolving slowly P) continue NPO until pain improves decrease IVF back to 150. ambulate in halls monitor electrolytes plan on starting clq diet once the pain improves more. Alec Sy DO VS,Fishbone, I+O VS, Fishbone, I+O Laboratory Tests 03/14/20 05:56 Vital Signs Date Time Temp Pulse Resp B/P (MAP) Pulse Ox O2 Delivery O2 Flow Rate FiO2 03/14/20 06:00 97.3 83 19 137/78 (97) 97 Room Air I&O- Last 24 Hours up to 6 AM 03/14/20 06:00 Intake Total 1500 ml Balance 1500 ml SU SY DO Mar 14, 2020 08:37
[2020-03-14] MEDS: THIAMINE 100 MG TAB PO SCH ×2 (09:16→22:20)
[2020-03-14] MEDS: MULTIVITAMINS/MINERALS THERAP 1 TAB PO SCH (09:16)
[2020-03-14] MEDS: FOLIC ACID 1 MG TAB PO SCH (09:16)
[2020-03-14] MEDS: MORPHINE 2 MG/ML 1ML VIAL (J2270) IV PRN ×3 (11:15→22:26)
[2020-03-14] MEDS ORDERED: hydrOXYzine 10 MG TAB PO PRN (11:30)
[2020-03-14 14:00] VITALS: BP 132/80
--- NOTE | 2020-03-14 17:11 | IPNPDOC ---
Date Seen The patient was seen on 03/14/20. Progress Note SUBJECTIVE: Anxious slightly, pain improved in LLQ. Deescalated pain meds. OOBTC TID, encourage ambulation. Denies chest pain, n/v/d, fevers, chills. OBJECTIVE PHYSICAL EXAMINATION: VS: Please see below CONSTITUTIONAL: No acute distress, resting comfortably, AAO x 3 EYES: PERRLA, EOM intact HENT, MOUTH: Normocephalic, atraumatic, moist mucous membranes, NECK: SUPPLE, no JVD, no lymphadenopathy, no carotid bruit CV: Regular rate and rhythm, S1S2 normal, no murmurs/rubs/gallops RESPIRATORY: Clear to auscultation bilaterally, no rales/rhonchi/wheezes GI: tenderness to touch in LUQ only. BS positive in 4 quadrants, soft, nondistended, no rebound or guarding, no organomegaly : Deferred MUSCULOSKELETAL: Normal ROM. No cyanosis, clubbing, swelling, joint deformity, extremity edema INTEGUMENTARY: Intact, no rashes, no lesions, no erythema NEUROLOGIC: Cranial Nerves II-XII are intact, no focal deficits PSYCHIATRIC: Mood and affect are normal LABORATORY DATA: Please see below IMAGING: CT abd/pelvis: There is inflammation/phlegmon along the margins of the entire pancreas consistent with changes of pancreatitis. This also tracks along the margins of the stomach and duodenal bulb and Gerotas fascia on the left. There is a small loculation of fluid left pelvis as well. ASSESSMENT: Patient is a 29-year-old male with past nuchal history of alcohol abuse, obesity, history of bilateral pulmonary emboli (2017) and history of alcohol-induced pancreatitis (last admission ) admitted for acute pancreatitis likely secondary to alcohol abuse. PLAN: 1. Acute recurrent pancreatitis secondary to alcohol abuse -Lipase decreasead from >4K to 1100, abdominal pain only in LUQ -NPO, IVFs 150 cc/hr, morphine PRN for pain was increased -Advance diet as pain improves 2. Alcohol abuse -Last drink 03/08/20. -No signs/symptoms of alcohol wirhdrawl -IVFs, CIWA protocol: ativan, thiamine, folic acid, MV, CIWA scale 3. Tobacco use -Does not wish to have nicotine patch 4. Hx of b/l pulmonary emboli (2017) -Treated with 6 months of anticoagulation and was told he could stop -Denies chest pain, shortness of breath currently 5. GI px -PPI 6. DVT px -Lovenox DISPOSITION: Admitted under inpatient status. Plan is discharge home when medically improved. Will need information on PCP's in the area and AA, alcohol rehabilitation at discharge. VS, I&O, 24H, Fishbone Vital Signs/I&O Vital Signs Date Time Temp Pulse Resp B/P (MAP) Pulse Ox O2 Delivery O2 Flow Rate FiO2 03/14/20 14:00 97.9 73 17 132/80 (97) 97 Room Air I&O- Last 24 Hours up to 6 AM 03/14/20 06:00 Intake Total 1500 ml Balance 1500 ml Laboratory Data 24H LABS Laboratory Tests 2 03/14/20 05:56: Nucleated Red Blood Cells % (auto) 0.0, Anion Gap 7L, Glomerular Filtration Rate > 60.0, Calcium Level 8.0L, Total Bilirubin 1.2H, Aspartate Amino Transf (AST/SGOT) 17, Alanine Aminotransferase (ALT/SGPT) 17, Alkaline Phosphatase 90, Total Protein 6.2L, Albumin 2.9L, Albumin/Globulin Ratio 0.9, Lipase 1146H CBC/BMP Laboratory Tests 03/14/20 05:56 Current Medications Current Medications Medications (Trade) Dose Ordered Sig/Haylee Route PRN Reason Start Time Stop Time Status Last Admin Dose Admin Enoxaparin Sodium (Lovenox) 40 mg DAILY SC 03/13/20 09:00 03/14/20 08:31 DC 03/13/20 10:48 Folic Acid (Folic Acid) 1 mg DAILY PO 03/13/20 09:00 03/14/20 09:16 Home Med (Med Rec Complete!) ASDIRECTED XX 03/12/20 18:15 03/12/20 18:21 DC Hydroxyzine HCl (Atarax) 10 mg Q6H PRN PO ANXIETY 03/14/20 11:30 03/14/20 12:59 Lorazepam (Ativan) 1 mg STAT STAT IV 03/12/20 16:43 03/12/20 16:44 DC 03/12/20 17:13 Lorazepam (Ativan) 2 mg ASDIRECTED PRN PO SEE PROTOCOL 03/12/20 18:00 Mirtazapine (Remeron) 30 mg QHS PO 03/14/20 21:00 Morphine Sulfate (Morphine Sulfate Inj) 1 mg Q4H PRN IV MODERATE PAIN (PS 5-7) 03/12/20 18:00 03/12/20 18:41 DC 03/12/20 18:31 Morphine Sulfate (Morphine Sulfate Inj) 2 mg Q4H PRN IV MODERATE PAIN (PS 5-7) 03/14/20 12:00 03/14/20 11:15 Morphine Sulfate (Morphine Sulfate Inj) 2 mg Q4H PRN IV MODERATE PAIN (PS 5-7) 03/12/20 22:00 03/13/20 10:18 DC 03/13/20 08:06 Morphine Sulfate (Morphine Sulfate Inj) 4 mg Q4H PRN IV MODERATE PAIN (PS 5-7) 03/13/20 12:00 03/14/20 08:30 DC 03/14/20 04:20 Morphine Sulfate (Morphine Sulfate Inj) 4 mg Q6HP PRN IV SEVERE PAIN (PS 8-10) 03/14/20 08:30 Morphine Sulfate (Morphine Sulfate Inj) 4 mg Q6HP PRN IV SEVERE PAIN (PS 8-10) 03/12/20 18:45 03/13/20 10:19 DC Morphine Sulfate (Morphine Sulfate Inj) 6 mg Q6HP PRN IV SEVERE PAIN (PS 8-10) 03/13/20 14:00 03/14/20 08:30 DC Multivitamins (Theragram-M) 1 tab DAILY PO 03/13/20 09:00 03/14/20 09:16 Ondansetron HCl (ZOFRAN INJection) 4 mg Q4HP PRN IV NAUSEA OR VOMITING 03/12/20 18:00 Sodium Chloride 1,000 ml @ 150 mls/hr Q6H40M IV 03/12/20 18:00 03/14/20 12:59 Thiamine HCl (Thiamine HCl) 100 mg BID PO 03/12/20 19:30 03/15/20 09:01 03/14/20 09:16 Allergies Coded Allergies: No Known Allergies (Unverified , 01/28/20) Nidhi Lewis MD Mar 14, 2020 17:11
[2020-03-14 22:00] VITALS: BP 119/72
[2020-03-14] MEDS: MIRTAZAPINE 15 MG TAB PO SCH (22:20)
[2020-03-15] MEDS: MORPHINE 2 MG/ML 1ML VIAL (J2270) IV PRN ×2 (03:25→08:01)
[2020-03-15] MEDS: NS 1,000 ML IV SCH ×2 (03:25→09:33)
[2020-03-15 05:14] VITALS: BP 129/70
[2020-03-15 06:00] VITALS: BP 129/70
[2020-03-15 06:34] LABS: HEMATOCRIT 38.3 % (42.0-52.0); MEAN CORPUSCULAR HEMOGLOBIN 31.9 pg (27.0-33.0); MEAN CORPUSCULAR HGB CONC 33.9 g/dl (32.0-36.5); MEAN CORPUSCULAR VOLUME 93.9 fl (80.0-96.0); PLATELET COUNT, AUTOMATED 119 10^3/uL (150-450); RED BLOOD COUNT 4.08 10^6/uL (4.30-6.10); WHITE BLOOD COUNT 5.3 10^3/uL (4.0-10.0)
[2020-03-15 07:03] LABS: ALT/SGPT 16 U/L (12-78); BILIRUBIN,TOTAL 0.8 MG/DL (0.2-1.0); BLOOD UREA NITROGEN 7 MG/DL (7-18); CARBON DIOXIDE LEVEL 20 MEQ/L (21-32); CHLORIDE LEVEL 109 MEQ/L (98-107); CREATININE FOR GFR 0.78 MG/DL (0.70-1.30); GLOMERULAR FILTRATION RATE > 60.0 (>60); GLUCOSE, FASTING 61 MG/DL (70-100); SODIUM LEVEL 139 MEQ/L (136-145); TOTAL PROTEIN 6.6 GM/DL (6.4-8.2)
[2020-03-15] MEDS: FOLIC ACID 1 MG TAB PO SCH (08:00)
[2020-03-15] MEDS: THIAMINE 100 MG TAB PO SCH (08:00)
[2020-03-15] MEDS: MULTIVITAMINS/MINERALS THERAP 1 TAB PO SCH (08:00)
--- NOTE | 2020-03-15 08:12 | IPNPDOC ---
Text Note Date of Service The patient was seen on 03/15/20. NOTE No acute events overnight. Denies nausea, emesis, or fevers. The lower abd pain is still improving, but he is still sore in the top of the abdomen. VSSAF NAD abd - soft, TTP epigastric and in the LUQ. LLQ pain is gone, no rebound or guarding labs - below A) 29y/o male with alcoholic pancreatitis that is resolving slowly P) start with sips and chips today decrease IVF back to 125. ambulate in halls monitor electrolytes plan on starting clq diet once the pain improves more. Alec Sy DO VS,Fishbone, I+O VS, Fishbone, I+O Laboratory Tests 03/15/20 06:02 Vital Signs Date Time Temp Pulse Resp B/P (MAP) Pulse Ox O2 Delivery O2 Flow Rate FiO2 03/15/20 08:01 18 03/15/20 06:00 97.3 79 129/70 (89) 98 Room Air I&O- Last 24 Hours up to 6 AM 03/15/20 06:00 Intake Total 5100 ml Output Total 0 ml Balance 5100 ml SU SY DO Mar 15, 2020 08:12
[2020-03-15] MEDS ORDERED: MORPHINE 2 MG/ML 1ML VIAL (J2270) IV PRN (08:30)
--- NOTE | 2020-03-15 11:36 | IPNPDOC ---
Date Seen The patient was seen on 03/15/20. Progress Note SUBJECTIVE: BS slightly low in 50-60's, started D5W NS at 100 cc/hr, can have popsicles. Pain 6/10 in LUQ, further deescalated pain meds. OOBTC TID, encourage ambulation. Denies chest pain, n/v/d, fevers, chills. OBJECTIVE: PHYSICAL EXAMINATION: VS: Please see below CONSTITUTIONAL: No acute distress, resting comfortably, AAO x 3 EYES: PERRLA, EOM intact HENT, MOUTH: Normocephalic, atraumatic, moist mucous membranes NECK: SUPPLE, no JVD, no lymphadenopathy, no carotid bruit CV: Regular rate and rhythm, S1S2 normal, no murmurs/rubs/gallops RESPIRATORY: Clear to auscultation bilaterally, no rales/rhonchi/wheezes GI: tenderness to touch in LUQ only. BS positive in 4 quadrants, soft, nondistended, no rebound or guarding, no organomegaly : Deferred MUSCULOSKELETAL: Normal ROM. No cyanosis, clubbing, swelling, joint deformity, extremity edema INTEGUMENTARY: Intact, no rashes, no lesions, no erythema NEUROLOGIC: Cranial Nerves II-XII are intact, no focal deficits PSYCHIATRIC: Mood and affect are normal LABORATORY DATA: Please see below IMAGING: CT abd/pelvis: There is inflammation/phlegmon along the margins of the entire pancreas consistent with changes of pancreatitis. This also tracks along the margins of the stomach and duodenal bulb and Gerotas fascia on the left. There is a small loculation of fluid left pelvis as well. ASSESSMENT: Patient is a 29-year-old male with past nuchal history of alcohol abuse, obesity, history of bilateral pulmonary emboli (2017) and history of alcohol-induced pancreatitis (last admission ) admitted for acute pancreatitis likely secondary to alcohol abuse. PLAN: Acute recurrent pancreatitis secondary to alcohol abuse -Abdominal pain isolated to only in LUQ still, 6/10 on pain scale -WBC wnl, afebrile -NPO except ice chips and popsicles, IVFs 100 cc/hr, morphine PRN for pain further deescalated -Advance diet as pain improves -Surgery following Hypoglycemia 2/2 to decreased PO intake -Started on D5W NS, can have popsicles. -FS Q12 hrs Alcohol abuse -Last drink 03/08/20. -No signs/symptoms of alcohol wirhdrawl -IVFs, CIWA protocol: ativan, thiamine, folic acid, MV, CIWA scale Tobacco use -Does not wish to have nicotine patch Hx of b/l pulmonary emboli (2017) -Treated with 6 months of anticoagulation and was told he could stop -Denies chest pain, shortness of breath currently GI px -PPI DVT px -Lovenox DISPOSITION: Admitted under inpatient status. Plan is discharge home when medically improved. Will need information on PCP's in the area and AA, alcohol rehabilitation at discharge. VS, I&O, 24H, Fishbone Vital Signs/I&O Vital Signs Date Time Temp Pulse Resp B/P (MAP) Pulse Ox O2 Delivery O2 Flow Rate FiO2 03/15/20 08:01 18 03/15/20 06:00 97.3 79 129/70 (89) 98 Room Air I&O- Last 24 Hours up to 6 AM 03/15/20 06:00 Intake Total 5100 ml Output Total 0 ml Balance 5100 ml Laboratory Data 24H LABS Laboratory Tests 2 03/15/20 06:02: Nucleated Red Blood Cells % (auto) 0.0, Anion Gap 10, Glomerular Filtration Rate > 60.0, Calcium Level 8.0L, Total Bilirubin 0.8, Aspartate Amino Transf (AST/SGOT) 18, Alanine Aminotransferase (ALT/SGPT) 16, Alkaline Phosphatase 100, Total Protein 6.6, Albumin 3.0L, Albumin/Globulin Ratio 0.8 03/15/20 11:19: Bedside Glucose (Misc Panel) 57L CBC/BMP Laboratory Tests 03/15/20 06:02 Current Medications Current Medications Medications (Trade) Dose Ordered Sig/Haylee Route PRN Reason Start Time Stop Time Status Last Admin Dose Admin Dextrose/Sodium Chloride 1,000 ml @ 125 mls/hr Q8H IV 03/15/20 11:30 Enoxaparin Sodium (Lovenox) 40 mg DAILY SC 03/13/20 09:00 03/14/20 08:31 DC 03/13/20 10:48 Folic Acid (Folic Acid) 1 mg DAILY PO 03/13/20 09:00 03/15/20 08:00 Home Med (Med Rec Complete!) ASDIRECTED XX 03/12/20 18:15 03/12/20 18:21 DC Hydroxyzine HCl (Atarax) 10 mg Q6H PRN PO ANXIETY 03/14/20 11:30 03/14/20 12:59 Lorazepam (Ativan) 1 mg STAT STAT IV 03/12/20 16:43 03/12/20 16:44 DC 03/12/20 17:13 Lorazepam (Ativan) 2 mg ASDIRECTED PRN PO SEE PROTOCOL 03/12/20 18:00 Mirtazapine (Remeron) 30 mg QHS PO 03/14/20 21:00 03/14/20 22:20 Morphine Sulfate (Morphine Sulfate Inj) 1 mg Q4H PRN IV MODERATE PAIN (PS 5-7) 03/12/20 18:00 03/12/20 18:41 DC 03/12/20 18:31 Morphine Sulfate (Morphine Sulfate Inj) 1 mg Q6HP PRN IV MILD PAIN (PS 1-4) 03/15/20 08:30 Morphine Sulfate (Morphine Sulfate Inj) 2 mg Q4H PRN IV MODERATE PAIN (PS 5-7) 03/14/20 12:00 03/15/20 08:27 DC 03/15/20 08:01 Morphine Sulfate (Morphine Sulfate Inj) 2 mg Q4H PRN IV MODERATE PAIN (PS 5-7) 03/12/20 22:00 03/13/20 10:18 DC 03/13/20 08:06 Morphine Sulfate (Morphine Sulfate Inj) 3 mg Q6HP PRN IV SEVERE PAIN (PS 8-10) 03/15/20 08:30 Morphine Sulfate (Morphine Sulfate Inj) 4 mg Q4H PRN IV MODERATE PAIN (PS 5-7) 03/13/20 12:00 03/14/20 08:30 DC 03/14/20 04:20 Morphine Sulfate (Morphine Sulfate Inj) 4 mg Q6HP PRN IV SEVERE PAIN (PS 8-10) 03/14/20 08:30 03/15/20 08:27 DC Morphine Sulfate (Morphine Sulfate Inj) 4 mg Q6HP PRN IV SEVERE PAIN (PS 8-10) 03/12/20 18:45 03/13/20 10:19 DC Morphine Sulfate (Morphine Sulfate Inj) 6 mg Q6HP PRN IV SEVERE PAIN (PS 8-10) 03/13/20 14:00 03/14/20 08:30 SD Multivitamins (Theragram-M) 1 tab DAILY PO 03/13/20 09:00 03/15/20 08:00 Ondansetron HCl (ZOFRAN INJection) 4 mg Q4HP PRN IV NAUSEA OR VOMITING 03/12/20 18:00 Sodium Chloride 1,000 ml @ 125 mls/hr Q8H IV 03/12/20 18:00 03/15/20 11:28 DC 03/15/20 09:33 Thiamine HCl (Thiamine HCl) 100 mg BID PO 03/12/20 19:30 03/15/20 09:01 DC 03/15/20 08:00 Allergies Coded Allergies: No Known Allergies (Unverified , 01/28/20) Nidhi Lewis MD Mar 15, 2020 11:36
[2020-03-15] MEDS: D5W/0.9% SODIUM CHLORIDE 1,000 ML IV SCH ×2 (11:48→21:24)
--- NOTE | 2020-03-15 13:32 | CR ---
DATE OF CONSULTATION: 03/13/2020 REASON FOR CONSULTATION: Pancreatitis. HISTORY OF PRESENT ILLNESS: Patient is a 29-year-old male who presented to the emergency room on March 12 with a history of alcohol abuse and recent pancreatitis. He was in the hospital January 26 for the same thing. This time he presents with a 3-day history of worsening epigastric abdominal pain with nausea and vomiting. He was drinking about a pint of alcohol per day over this past weekend. Since his last hospitalization he has cut back to only drinking on weekends, but he is still drinking very heavily at the time. He has not had anything to drink since March 08. After having a few days of pain, he came into the emergency room (ER) for evaluation. In the ER he had a CT done that showed inflammation around the pancreas, extending down into the left pelvis with a slight fluid collection in the pelvis. His lipase was also over 4000 on admission. Today his labs are slightly improved; however, his pain is slightly worse than when he came in. Nausea and vomiting are improved. Passing gas. No bowel movements in a few days. Denies any fever or chills No cough or shortness of breath. Main complaint is the abdominal pain along the epigastric and all the way down the left side. MEDICAL HISTORY: 1. Pancreatitis. 2. Alcohol abuse. 3. Tobacco usage. 4. History of bilateral pulmonary emboli (PE). SURGICAL HISTORY: 1. Pin placement in the left wrist. 2. Dental surgery. FAMILY HISTORY: Noncontributory. ALLERGIES: None. MEDICATIONS: Please see medication rec. SOCIAL HISTORY: Smokes a pack every 2-3 days. Drinks alcohol heavily. Denies drug usage. REVIEW OF SYSTEMS: Pertinent positives and negatives as stated in history of present illness (HPI). PHYSICAL EXAMINATION: GENERAL: Alert and oriented times three in no acute distress. VITAL SIGNS: Temperature 98.9, pulse 76, respirations 18, blood pressure 163/92, pulse ox 98% on room air. HEENT: Pupils equally round and reactive to light and accommodation. HEART: S1, S2, regular rate and rhythm. LUNGS: Clear to auscultation bilaterally. ABDOMEN: Soft, tender to palpation in epigastric, left upper quadrant, and left flank. No rebound or guarding. No rigidity. No ventral hernias. EXTREMITIES: No clubbing, cyanosis, or edema. LABORATORY DATA: White count 7.8, hemoglobin 13.7, potassium 3.7, creatinine 0.88. Total bilirubin 1.3. Lipase was 4144 on March 12. No repeat today. IMAGING: CT abdomen and pelvis was obtained. I reviewed the images myself. There is inflammation/phlegmon along the margins of the entire pancreas consistent with changes of pancreatitis. There is also tracking down the left side all the way into the left pelvis with a small loculated fluid collection there. ASSESSMENT AND PLAN: Patient is a 29-year-old male with severe pancreatitis secondary to alcohol. I gave him a long discussion about pancreatitis and the effects of the alcohol on it and how his pancreas is becoming sensitized to the alcohol. He has a very severe form of pancreatitis right now with the fluid and the collections around it and phlegmon creation. I advised him to stop alcohol permanently, and I explained to him the risks of fluid and even pancreatic necrosis if things get worse in the future. For now, plan is to keep him nothing by mouth, keep him on intravenous (IV) fluids. We will bump his IV fluids up to try to not only hydrate him but help to flush out some of the toxins to treat the pancreatitis and will continue to monitor him closely. If he starts to develop increased epigastric pain, fevers, leukocytosis, we will repeat CT to monitor him for necrotizing pancreatitis. Thank you for consult. I will continue to follow the patient with you. THAIS
[2020-03-15 14:00] VITALS: BP 143/84
[2020-03-15] MEDS: MORPHINE 4 MG/ML 1ML VIAL/SYRINGE (J2270) IV PRN (21:23)
[2020-03-15] MEDS: MIRTAZAPINE 15 MG TAB PO SCH (21:25)
[2020-03-15 22:00] VITALS: BP 140/80
[2020-03-15 23:00] VITALS: BP 140/80
[2020-03-16 02:00] VITALS: BP 141/82
[2020-03-16] MEDS: MORPHINE 4 MG/ML 1ML VIAL/SYRINGE (J2270) IV PRN (04:17)
[2020-03-16] MEDS: D5W/0.9% SODIUM CHLORIDE 1,000 ML IV SCH (04:18)
[2020-03-16 06:00] VITALS: BP 144/81
[2020-03-16 06:23] VITALS: BP 130/79
[2020-03-16 06:27] LABS: HEMATOCRIT 38.1 % (42.0-52.0); MEAN CORPUSCULAR HEMOGLOBIN 31.8 pg (27.0-33.0); MEAN CORPUSCULAR HGB CONC 34.1 g/dl (32.0-36.5); MEAN CORPUSCULAR VOLUME 93.2 fl (80.0-96.0); PLATELET COUNT, AUTOMATED 136 10^3/uL (150-450); RED BLOOD COUNT 4.09 10^6/uL (4.30-6.10); WHITE BLOOD COUNT 4.5 10^3/uL (4.0-10.0)
[2020-03-16 06:52] LABS: ALT/SGPT 17 U/L (12-78); BILIRUBIN,TOTAL 0.6 MG/DL (0.2-1.0); BLOOD UREA NITROGEN 5 MG/DL (7-18); CALCIUM LEVEL 8.5 MG/DL (8.5-10.1); CARBON DIOXIDE LEVEL 24 MEQ/L (21-32); CHLORIDE LEVEL 109 MEQ/L (98-107); CREATININE FOR GFR 0.79 MG/DL (0.70-1.30); GLOMERULAR FILTRATION RATE > 60.0 (>60); GLUCOSE, FASTING 94 MG/DL (70-100); POTASSIUM SERUM 3.4 MEQ/L (3.5-5.1); SODIUM LEVEL 139 MEQ/L (136-145)
[2020-03-16] MEDS ORDERED: POTASSIUM CHLORIDE 10 MEQ SR TABLET PO ONE (08:30)
--- NOTE | 2020-03-16 08:44 | IPNPDOC ---
Text Note Date of Service The patient was seen on 03/16/20. NOTE No acute events overnight. Denies nausea, emesis, or fevers. His abd pain is almost completely gone now. He tolerated sips and chips yesterday with popsicles and gingerale and he is doing well. VSSAF NAD abd - soft, nt, nd labs - below A) 29y/o male with alcoholic pancreatitis that is resolving slowly P) reg diet ok to d/c home stay away from all alcohol for at least a month. Alec Sy DO VS,[place], I+O VS, Fishbone, I+O Laboratory Tests 03/16/20 05:38 Vital Signs Date Time Temp Pulse Resp B/P (MAP) Pulse Ox O2 Delivery O2 Flow Rate FiO2 03/16/20 06:23 68 130/79 03/16/20 06:00 98.6 20 98 Room Air I&O- Last 24 Hours up to 6 AM 03/16/20 06:00 Intake Total 2570 ml Output Total 0 ml Balance 2570 ml SU SY DO Mar 16, 2020 08:44
[2020-03-16] MEDS: FOLIC ACID 1 MG TAB PO SCH (08:52)
[2020-03-16] MEDS: MULTIVITAMINS/MINERALS THERAP 1 TAB PO SCH (08:52)
[2020-03-16 14:00] VITALS: BP 141/82
[2020-03-16] MEDS ORDERED: TRAM50TA2 PO (14:33)
--- NOTE | 2020-03-16 14:41 | DS.PDOC ---
Discharge Summary General Date of Admission Mar 12, 2020 at 17:59 Date of Discharge 03/16/20 Attending Physician: Nidhi Lewis MD Discharge Summary HISTORY OF PRESENT ILLNESS: Patient is a 29-year-old male with past nuchal history of alcohol abuse, obesity, history of bilateral pulmonary emboli (2017) and history of alcohol- induced pancreatitis (last admission ) presented to [facility] emergency room with 3 days of worsening abdominal pain, nausea, vomiting. As per the patient, he drank 1 pint of liquor a day over the weekend. He noticed 3 days ago an acute onset of a left upper quadrant abdominal pain which radiated to the back. He described the pain as sharp, 9/10, radiating to the lower back, constant, worse with movement, similar to his last admission for pancreatitis. Vomiting was nonbloody and he has been unable to keep food or fluid down for 3 days. Other associated symptoms include lightheadedness, feeling feverish, chills, shortness of breath with pain worsening. ROS below. The patient's last drink was on and 03/08/2020. Today he came to the emergency room due to worsening pain. In the emergency room, vital signs showed heart rate 69526, otherwise normal. CT abdomen and pelvis was done and pending results. Lipase was 4000, WBC mildly elevated. On exam the patient had severe left upper quadrant pain on palpation of his abdomen. There were no signs of alcohol withdrawal. The patient was given morphine for pain. The patient was ultimately admitted under inpatient status for acute pancreatitis likely secondary to alcohol abuse. HOSPITAL COURSE: Patient was kept NPO from admission until 03/15/20 due to continued left lower and left upper quadrant pain. Pain gradually improved and morphine was able to be deescalated safely. Patient was started on sips of clears and ice chips on 03/15/20 which he tolerated well. Pain had decreased to 4/10 on 03/16/20 and patient's diet was advanced. He tolerated regular diet for breakfast and lunch without increased pain. Alcohol cessation was discussed with patient, as he is high risk for reoccurence of pancreatitis. He does not have a PCP but [facility] Will also give AA information on discharge. At time of discharge, patient denied incr abdominal pain, fevers, chills, n/v/d, shortness of breath. REVIEW OF SYSTEMS: CONSTITUTIONAL: Denies unexplained weight gain or weight loss, night sweats EYES: Denies eye drainage, eye pain, visual changes, dry/irritated eye EARS, NOSE, MOUTH, THROAT: Denies difficulty hearing, ringing in ears, mouth sores, loose teeth, sore throat, facial numbness or pain NECK: Denies swollen glands CARDIOVASCULAR: Denies irregular heartbeat, racing heart, chest pains, swelling of feet or legs, pain in legs with walking RESPIRATORY: Denies night sweats, wheezing, sputum production, oxygen at home, coughing up blood, cough lasting > 1 month GASTROINTESTINAL: Denies constipation, bloody stool, diarrhea GENITOURINARY: Denies painful urination, bloody urine, frequent urination, urgency, leaking urine, impotence MUSCULOSKELETAL: Denies joint pain, muscle pain, leg swelling INTEGUMENTARY: Denies rash, itching, new skin lesion, change in existing skin lesion, hair loss or increase, breast changes. NEUROLOGICAL: Denies headaches, difficulty walking, numbness or tingling PSYCHIATRIC: Denies depression, anxiety, recurrent bad thoughts, mood swings, hallucinations PAST MEDICAL HISTORY: 1. Hx of pancreatitis 2. alcohol abuse hx 3. tobacco use 4. Hx bilateral pulmonary emboli (2016, previously on AC but taken off 6 mo later) PAST SURGICAL HISTORY: Pin placement in the left wrist Dental surgery FAMILY HISTORY: Father: Healthy, alive. Mother: healthy , Alive. SOCIAL HISTORY: One pack per day every 23 days smoker for the past 10 years. Denies drug use currently and in the past. Ring's alcohol 1. per night on the weekends. Last drink was this past Monday. He lives in [place], he has no PCP and he is currently employed full-time. He is a full code. ALLERGIES: Please see below. DISCHARGE MEDICATIONS: Please see below. PHYSICAL EXAMINATION: VS: Please see below CONSTITUTIONAL: No acute distress, resting comfortably, AAO x 3 EYES: PERRLA, EOM intact HENT, MOUTH: Normocephalic, atraumatic, moist mucous membranes NECK: SUPPLE, no JVD, no lymphadenopathy, no carotid bruit CV: Regular rate and rhythm, S1S2 normal, no murmurs/rubs/gallops RESPIRATORY: Clear to auscultation bilaterally, no rales/rhonchi/wheezes GI: mild tenderness to palpation in LUQ only. BS positive in 4 quadrants, soft, nondistended, no rebound or guarding, no organomegaly : Deferred MUSCULOSKELETAL: Normal ROM. No cyanosis, clubbing, swelling, joint deformity, extremity edema INTEGUMENTARY: Intact, no rashes, no lesions, no erythema NEUROLOGIC: Cranial Nerves II-XII are intact, no focal deficits PSYCHIATRIC: Mood and affect are normal LABORATORY DATA: Please see below IMAGING: CT abd/pelvis: There is inflammation/phlegmon along the margins of the entire pancreas consistent with changes of pancreatitis. This also tracks along the margins of the stomach and duodenal bulb and Gerotas fascia on the left. There is a small loculation of fluid left pelvis as well. ASSESSMENT: Patient is a 29-year-old male with past nuchal history of alcohol abuse, obesity, history of bilateral pulmonary emboli (2016) and history of alcohol-induced pancreatitis (last admission ) admitted for acute pancreatitis likely secondary to alcohol abuse. PLAN: Acute recurrent pancreatitis secondary to alcohol abuse -Abdominal pain isolated to only in LUQ still, further improved today -WBC wnl, afebrile -Tolerating advanced diet without issues -Surgery following and agree with discharge -Advised alcohol cessation, discussed in detail -Tramadol PRN for pain after d/c Hypoglycemia 2/2 to decreased PO intake-resolved Alcohol abuse -Last drink 03/08/20. -No signs/symptoms of alcohol wirhdrawl Tobacco use -Tobacco cessation discussed with patient Hx of b/l pulmonary emboli (2016) -Treated with 6 months of anticoagulation and was told he could stop -Denies chest pain, shortness of breath currently Anxiety -Stable -C/w home meds DISPOSITION: Discharged home in improved condition. Patient was given information on AA in the area. He does not have a PCP and today is a holiday so will not be able to help him establish care. He will need to call after holiday and establish one himself. TIME SPENT ON DISCHARGE: Greater than 30 minutes. Vital Signs/I&Os Vital Signs Date Time Temp Pulse Resp B/P (MAP) Pulse Ox O2 Delivery O2 Flow Rate FiO2 03/16/20 06:23 68 130/79 03/16/20 06:00 98.6 20 98 Room Air I&O- Last 24 Hours up to 6 AM 03/16/20 06:00 Intake Total 2570 ml Output Total 0 ml Balance 2570 ml Laboratory Data Labs 24H Laboratory Tests 2 03/15/20 18:24: Bedside Glucose (Misc Panel) 76 03/16/20 05:38: Nucleated Red Blood Cells % (auto) 0.0, Anion Gap 6L, Glomerular Filtration Rate > 60.0, Calcium Level 8.5, Total Bilirubin 0.6, Aspartate Amino Transf (AST/SGOT) 21, Alanine Aminotransferase (ALT/SGPT) 17, Alkaline Phosphatase 89, Total Protein 7.0, Albumin 3.0L, Albumin/Globulin Ratio 0.8 CBC/BMP Laboratory Tests 03/16/20 05:38 FSBS Laboratory Tests Test 03/15/20 18:24 Range/Units Bedside Glucose (Misc Panel) 76 70-105 MG/DL Discharge Medications Scheduled Mirtazapine (Remeron) 30 Mg Tablet, 30 MG PO QHS, (Reported) Pantoprazole Sodium (Pantoprazole Sodium) 20 Mg Tablet.dr, 20 MG PO DAILY, (Reported) Scheduled PRN Hydroxyzine HCl (Hydroxyzine HCl) 10 Mg Tablet, 10 MG PO Q6H PRN for ANXIETY, (Reported) Tramadol HCl (Tramadol HCl) 50 Mg Tablet, 50 MG PO Q6HP PRN for pain Allergies Coded Allergies: No Known Allergies (Unverified , 01/28/20) Nidhi Lewis MD Mar 16, 2020 14:41
== END 2020-03-16 15:23 | disposition home or self-care (01) | DRG 440 ==
LOC: M ED 16:08 → M ED INP 17:59 → ENRESERV 18:59 → M PCU 20:22 → M MSPAV 03-13 16:21
PROVIDERS: ADMIT Internal Medicine; ATTEND Internal Medicine
DX: K85.20 Alcohol induced acute pancreatitis without necrosis or infection (principal); F10.10 Alcohol abuse, uncomplicated; E66.9 Obesity, unspecified; Z86.711 Personal history of pulmonary embolism; F17.200 Nicotine dependence, unspecified, uncomplicated; F41.9 Anxiety disorder, unspecified; E16.2 Hypoglycemia, unspecified; Z79.899 Other long term (current) drug therapy

== ENCOUNTER 2020-05-06 13:31 | Inpatient (IN) | payer OTHER ==
[~2020-05-06] VITALS: Ht 177.8 cm; Wt 109.1 kg
[~2020-05-06 13:31] MED LIST changes: +MIRT-60 PO; +PANT20TA51 PO; -REME30TA PO; +TRAM50TA2 PO
[2020-05-06 14:13] LABS: BASO % 0.3 % (0.0-1.0); EOS % 0.2 % (0.0-3.0); HEMATOCRIT 48.7 % (42.0-52.0); LYMPH # 1.1 10^3/uL (1.5-5.0); LYMPH % 9.6 % (24.0-44.0); MEAN CORPUSCULAR HEMOGLOBIN 33.3 pg (27.0-33.0); MEAN CORPUSCULAR HGB CONC 34.9 g/dl (32.0-36.5); MEAN CORPUSCULAR VOLUME 95.3 fl (80.0-96.0); MONO # 0.8 10^3/uL (0.0-0.8); MONO % 6.7 % (0.0-5.0); NEUTROPHILS # 9.7 10^3/uL (1.5-8.5); NEUTROPHILS % 82.8 % (36.0-66.0); PLATELET COUNT, AUTOMATED 180 10^3/uL (150-450); RED BLOOD COUNT 5.11 10^6/uL (4.30-6.10); WHITE BLOOD COUNT 11.8 10^3/uL (4.0-10.0)
[2020-05-06] MEDS ORDERED: ONDANSETRON 4MG/2ML VIAL IV ONE (14:15)
[2020-05-06] MEDS ORDERED: NS 1,000 ML IV ONE (14:15)
[2020-05-06 14:48] LABS: ALBUMIN 4.2 GM/DL (3.2-5.2); ALT/SGPT 58 U/L (12-78); BILIRUBIN,DIRECT 0.6 MG/DL (0.0-0.2); BILIRUBIN,TOTAL 1.8 MG/DL (0.2-1.0); BLOOD UREA NITROGEN 14 MG/DL (7-18); CALCIUM LEVEL 9.1 MG/DL (8.5-10.1); CARBON DIOXIDE LEVEL 28 MEQ/L (21-32); CHLORIDE LEVEL 105 MEQ/L (98-107); CREATININE FOR GFR 1.24 MG/DL (0.70-1.30); GLOMERULAR FILTRATION RATE > 60.0 (>60); GLUCOSE, FASTING 118 MG/DL (70-100); LIPASE 3403 U/L (73-393); POTASSIUM SERUM 3.9 MEQ/L (3.5-5.1); SODIUM LEVEL 138 MEQ/L (136-145); TOTAL PROTEIN 7.9 GM/DL (6.4-8.2)
[2020-05-06] MEDS ORDERED: KETOROLAC 30 MG/ML 1ML VIAL IV ONE (15:00)
[2020-05-06] MEDS ORDERED: ISOVUE-370 76% 100ML VIAL As Ordered ONE (15:04)
[2020-05-06 15:10] LABS: ETHYL ALCOHOL (ETHANOL) 0.005 % (0.000-0.010)
--- NOTE | 2020-05-06 15:34 | REP ---
INDICATION: LUQ pain, hx pancreatitis. COMPARISON: 03/12/2020 TECHNIQUE: Axial contrast-enhanced images from the lung bases to the pubic symphysis using 100 cc Isovue 370 intravenous contrast material. Coronal and sagittal reformations obtained.. This CT examination was performed using the following dose reduction techniques: Automated exposure control, adjustment of mA and/or kv according to the patient's size, and the use of iterative reconstruction technique. FINDINGS: Mild to moderate peripancreatic inflammatory stranding is consistent with acute pancreatitis and is relatively unchanged as compared to prior examination. No drainable collection/abscess/pseudo cyst noted. Liver, spleen, gallbladder, bilateral adrenal glands and kidneys are normal. The enteric system including terminal ileum and appendix are normal. No obstruction or acute inflammatory process noted. Pelvis demonstrates normal bladder and age-appropriate prostate/seminal vesicles. No ascites. No free air. No adenopathy. Abdominal aorta without aneurysm or dissection. Musculoskeletal structures are intact. Lung bases demonstrate minimal atelectasis. IMPRESSION: Findings consistent with acute pancreatitis. No drainable collection/abscess or pseudocyst. <Electronically signed by Ladarius St > 05/06/20 0680
--- NOTE | 2020-05-06 15:59 | HPEPDOC ---
[facility] Medical History & Physical Date of Admission May 06, 2020 Date of Service: May 06, 2020 Attending Physician: Nidhi Lewis MD History and Physical HISTORY OF PRESENT ILLNESS: Patient is a 29-year-old male with past medical history of alcohol abuse, obesity, history of bilateral pulmonary emboli (2017) and history of alcohol- induced pancreatitis (last admission 03/12-05/2020) presented to [facility] emergency room with 2 days of worsening abdominal pain, nausea, vomiting. As per the patient, symptoms started suddenly. Abdominal pain is located in LUQ, radiates to the back at times, constant, sharp, /. Similar pain was felt on last admission here for acute pancreatitis. Vomiting was nonbloody and he has been unable to keep food or fluid down for 2 days. Other associated symptoms in clude lightheadedness. He denies alcohol use, sick contacts, diarrhea, fevers, chills, shortness of breath, sick contacts. Today he came to the emergency room due to worsening pain. In the emergency room, vital signs were wnl. WBC mildly elevated at 11.8, lipase was elevated at 3403. CT abdomen and pelvis: Findings consistent with acute pancreatitis. No drainable collection/abscess or pseudocyst. On exam the patient had severe left upper quadrant pain on palpation of his abdomen. There were no signs of alcohol withdrawal. The patient was ultimately admitted under inpatient status for acute recurrent pancreatitis. REVIEW OF SYSTEMS: CONSTITUTIONAL: Denies unexplained weight gain or weight loss, night sweats EYES: Denies eye drainage, eye pain, visual changes, dry/irritated eye EARS, NOSE, MOUTH, THROAT: Denies difficulty hearing, ringing in ears, mouth sores, loose teeth, sore throat, facial numbness or pain NECK: Denies swollen glands CARDIOVASCULAR: Denies irregular heartbeat, racing heart, chest pains, swelling of feet or legs, pain in legs with walking RESPIRATORY: Denies night sweats, wheezing, sputum production, oxygen at home, coughing up blood, cough lasting > 1 month GASTROINTESTINAL: Denies constipation, bloody stool, diarrhea GENITOURINARY: Denies painful urination, bloody urine, frequent urination, urgency, leaking urine, impotence MUSCULOSKELETAL: Denies joint pain, muscle pain, leg swelling INTEGUMENTARY: Denies rash, itching, new skin lesion, change in existing skin lesion, hair loss or increase, breast changes. NEUROLOGICAL: Denies headaches, difficulty walking, numbness or tingling PSYCHIATRIC: Denies depression, anxiety, recurrent bad thoughts, mood swings, hallucinations PAST MEDICAL HISTORY: 1. Hx of alcohol induced pancreatitis, recurrent 2. alcohol abuse hx 3. tobacco use 4. Hx bilateral pulmonary emboli (2017, previously on AC but taken off 6 mo later) PAST SURGICAL HISTORY: Pin placement in the left wrist Dental surgery FAMILY HISTORY: Father: Healthy, alive. Mother: healthy , Alive. SOCIAL HISTORY: One pack per day every 23 days smoker for the past 10 years. Denies drug use currently and in the past. Ring's alcohol 1. per night on the weekends. Last drink was this past Monday. He lives in [place], he has no PCP and he is currently employed full-time. He is a full code. ALLERGIES: Please see below. HOME MEDICATIONS: Please see below. PHYSICAL EXAMINATION: VS: Please see below CONSTITUTIONAL: No acute distress, resting in bed, AAO x 3 EYES: PERRLA, EOM intact HENT, MOUTH: Normocephalic, atraumatic, moist mucous membranes, NECK: SUPPLE, no JVD, no lymphadenopathy, no carotid bruit CV: Regular rate and rhythm, S1S2 normal, no murmurs/rubs/gallops RESPIRATORY: Clear to auscultation bilaterally, no rales/rhonchi/wheezes GI: tenderness palpation in LLQ, epigastric and LUQ. BS positive in 4 quadrants , soft, nondistended, no rebound or guarding, no organomegaly : Deferred MUSCULOSKELETAL: Normal ROM. No cyanosis, clubbing, swelling, joint deformity, extremity edema INTEGUMENTARY: Intact, no rashes, no lesions, no erythema NEUROLOGIC: Cranial Nerves II-XII are intact, no focal deficits PSYCHIATRIC: Mood and affect are normal LABORATORY DATA: Please see below IMAGING: CT abd/pelvis: Findings consistent with acute pancreatitis. No drainable collection/abscess or pseudocyst. ASSESSMENT: Patient is a 29-year-old male with past nuchal history of alcohol abuse, obesity, history of bilateral pulmonary emboli (2017) and history of alcohol-induced pancreatitis (last admission 03/12-05/2020) admitted for acute recurrent pancreatitis. PLAN: 1. Acute recurrent pancreatitis -Hx of recurrent alcohol induced pancreatitis, patient denies alcohol use prior to this flare up -CT abd/pelvis above -Lipase 3403, severe abdominal pain on palp of LUQ -NPO, IVFs at 150 cc/hr, morphine PRN for pain. Advance diet as pain improves 2. Alcohol abuse hx -Denies alcohol use since last admission, last flare up -No s/s of withdrawl -If suspicious, start CIWA protocol: ativan, thiamine, folic acid, MV, CIWA scale 3. Tobacco use -Does not wish to have nicotine patch 4. Hx of b/l pulmonary emboli (2017) -Treated with 6 months of anticoagulation and was told he could stop -Denies chest pain, shortness of breath currently 5. GI px -PPI 6. DVT px -Lovenox DISPOSITION: Admitted under inpatient status. Plan is discharge home when medically improved. Vital Signs Vital Signs Date Time Temp Pulse Resp B/P (MAP) Pulse Ox O2 Delivery O2 Flow Rate FiO2 05/06/20 13:57 05/06/20 13:32 96.7 98 17 98 Room Air Laboratory Data Labs 24H Laboratory Tests 2 05/06/20 13:57: Immature Granulocyte % (Auto) 0.4, Neutrophils (%) (Auto) 82.8H, Lymphocytes (%) (Auto) 9.6L, Monocytes (%) (Auto) 6.7H, Eosinophils (%) (Auto) 0.2, Basophils (%) (Auto) 0.3, Neutrophils # (Auto) 9.7H, Lymphocytes # (Auto) 1.1L, Monocytes # (Auto) 0.8, Eosinophils # (Auto) 0.0, Basophils # (Auto) 0.0, Nucleated Red Blood Cells % (auto) 0.0, Anion Gap 5L, Glomerular Filtration Rate > 60.0, Calcium Level 9.1, Total Bilirubin 1.8H, Direct Bilirubin 0.6H, Aspartate Amino Transf (AST/SGOT) 30, Alanine Aminotransferase (ALT/SGPT) 58, Alkaline Phosphatase 117, Total Protein 7.9, Albumin 4.2, Albumin/Globulin Ratio 1.1, Lipase 3403H, Ethyl Alcohol Level 0.005 CBC/BMP Laboratory Tests 05/06/20 13:57 Home Medications Scheduled Mirtazapine (Remeron) 30 Mg Tablet, 30 MG PO QHS Scheduled PRN Hydroxyzine HCl (Hydroxyzine HCl) 10 Mg Tablet, 10 MG PO Q6H PRN for ANXIETY Allergies Coded Allergies: No Known Allergies (Unverified , 01/28/20) A-FIB/CHADSVASC A-FIB History Current/History of A-Fib/PAF?: No Current PO Anticoag Therapy: No Age/Risk Factor Scoring CHADSVASC: CHADSVASC Response (Comments) Value Age Risk Factor Age < 65 years old 0 Gender Risk Factor Male 0 Hx of CHF No 0 Hx of HTN No 0 Hx of Stroke/TIA/or VTE No 0 Hx of Diabetes No 0 Hx of Vascular Disease No 0 Total 0 Treatment Treatment ordered: Other Other anticoagulant ordered: Nidhi Hsu MD May 06, 2020 15:59
[2020-05-06] MEDS ORDERED: MORPHINE 2 MG/ML 1ML VIAL (J2270) IV PRN ×3 (16:15→22:15)
[2020-05-06] MEDS: NS 1,000 ML IV SCH ×2 (16:34→20:24)
[2020-05-06] MEDS: ONDANSETRON 4MG/2ML VIAL IV PRN (16:34)
[2020-05-06 17:42] VITALS: BP 167/103
[2020-05-06 20:00] VITALS: BP 149/90
[2020-05-06] MEDS: MORPHINE 2 MG/ML 1ML VIAL (J2270) IV PRN (20:23)
[2020-05-06] MEDS: PANTOPRAZOLE 40MG VIAL (C9113 PER 1) IV SCH (20:23)
[2020-05-07] MEDS: MORPHINE 2 MG/ML 1ML VIAL (J2270) IV PRN ×4 (02:37→20:26)
[2020-05-07] MEDS: NS 1,000 ML IV SCH ×3 (04:40→14:30)
[2020-05-07 05:55] LABS: HEMATOCRIT 41.8 % (42.0-52.0); MEAN CORPUSCULAR HEMOGLOBIN 31.9 pg (27.0-33.0); MEAN CORPUSCULAR VOLUME 96.5 fl (80.0-96.0); PLATELET COUNT, AUTOMATED 134 10^3/uL (150-450); RED BLOOD COUNT 4.33 10^6/uL (4.30-6.10); WHITE BLOOD COUNT 7.4 10^3/uL (4.0-10.0)
[2020-05-07 05:57] LABS: HEMOGLOBIN 13.8 g/dl (13.5-17.5)
[2020-05-07 06:00] VITALS: BP 150/90
[2020-05-07 06:21] LABS: ALBUMIN 3.2 GM/DL (3.2-5.2); ALT/SGPT 39 U/L (12-78); BILIRUBIN,TOTAL 1.4 MG/DL (0.2-1.0); BLOOD UREA NITROGEN 11 MG/DL (7-18); CALCIUM LEVEL 8.5 MG/DL (8.5-10.1); CARBON DIOXIDE LEVEL 28 MEQ/L (21-32); CHLORIDE LEVEL 108 MEQ/L (98-107); CREATININE FOR GFR 1.11 MG/DL (0.70-1.30); GLOMERULAR FILTRATION RATE > 60.0 (>60); GLUCOSE, FASTING 92 MG/DL (70-100); POTASSIUM SERUM 3.8 MEQ/L (3.5-5.1); SODIUM LEVEL 141 MEQ/L (136-145); TOTAL PROTEIN 6.6 GM/DL (6.4-8.2)
[2020-05-07] MEDS: ENOXAPARIN 40MG/0.4ML SYRINGE (J1650 PER 10MG) SC SCH (08:46)
[2020-05-07] MEDS: ONDANSETRON 4MG/2ML VIAL IV PRN ×2 (08:46→14:30)
[2020-05-07] MEDS: KETOROLAC 30 MG/ML 1ML VIAL IV PRN ×3 (08:47→20:25)
--- NOTE | 2020-05-07 13:51 | IPNPDOC ---
Date Seen The patient was seen on 05/07/20. Progress Note SUBJECTIVE: Pain slightly improved, de-escalated pain meds today. Keeping NPO will see if can start in the AM. Denies chest pain, shortness of breath, fevers, chills, n/v/d. OBJECTIVE: PHYSICAL EXAMINATION: VS: Please see below CONSTITUTIONAL: No acute distress, resting in bed, AAO x 3 EYES: PERRLA, EOM intact HENT, MOUTH: Normocephalic, atraumatic, moist mucous membranes, NECK: SUPPLE, no JVD, no lymphadenopathy, no carotid bruit CV: Regular rate and rhythm, S1S2 normal, no murmurs/rubs/gallops RESPIRATORY: Clear to auscultation bilaterally, no rales/rhonchi/wheezes GI: tenderness palpation in LLQ, epigastric and LUQ- moderate. BS positive in 4 quadrants, soft, nondistended, no rebound or guarding, no organomegaly : Deferred MUSCULOSKELETAL: Normal ROM. No cyanosis, clubbing, swelling, joint deformity, extremity edema INTEGUMENTARY: Intact, no rashes, no lesions, no erythema NEUROLOGIC: Cranial Nerves II-XII are intact, no focal deficits PSYCHIATRIC: Mood and affect are normal LABORATORY DATA: Please see below IMAGING: CT abd/pelvis: Findings consistent with acute pancreatitis. No drainable collection/abscess or pseudocyst. ASSESSMENT: Patient is a 29-year-old male with past nuchal history of alcohol abuse, obesity, history of bilateral pulmonary emboli (2016) and history of alcohol-induced pancreatitis (last admission 03/12-05/2020) admitted for acute recurrent pancreatitis. PLAN: 1. Acute recurrent pancreatitis -Hx of recurrent alcohol induced pancreatitis, patient denies alcohol use prior to this flare up -CT abd/pelvis above -Lipase 3403, severe abdominal pain on palp of LUQ -Pain meds de-escalated, added toradol IV. -C/w NPO, IVFs at 150 cc/hr, morphine PRN for pain. -Advance diet as pain improves 2. Alcohol abuse hx -Denies alcohol use since last admission, last flare up -No s/s of withdrawl -If suspicious, start CIWA protocol: ativan, thiamine, folic acid, MV, CIWA scale 3. Tobacco use -Does not wish to have nicotine patch 4. Hx of b/l pulmonary emboli (2017) -Treated with 6 months of anticoagulation and was told he could stop -Denies chest pain, shortness of breath currently 5. GI px -PPI 6. DVT px -Lovenox DISPOSITION: Admitted under inpatient status. Plan is discharge home when medically improved. VS, I&O, 24H, Fishbone Vital Signs/I&O Vital Signs Date Time Temp Pulse Resp B/P (MAP) Pulse Ox O2 Delivery O2 Flow Rate FiO2 05/07/20 08:58 18 Room Air 05/07/20 06:00 98.0 78 150/90 (110) 96 I&O- Last 24 Hours up to 6 AM 05/07/20 05:59 Intake Total 0 ml Balance 0 ml Laboratory Data 24H LABS Laboratory Tests 2 05/06/20 13:57: Immature Granulocyte % (Auto) 0.4, Neutrophils (%) (Auto) 82.8H, Lymphocytes (%) (Auto) 9.6L, Monocytes (%) (Auto) 6.7H, Eosinophils (%) (Auto) 0.2, Basophils (%) (Auto) 0.3, Neutrophils # (Auto) 9.7H, Lymphocytes # (Auto) 1.1L, Monocytes # (Auto) 0.8, Eosinophils # (Auto) 0.0, Basophils # (Auto) 0.0, Nucleated Red Blood Cells % (auto) 0.0, Anion Gap 5L, Glomerular Filtration Rate > 60.0, Calcium Level 9.1, Total Bilirubin 1.8H, Direct Bilirubin 0.6H, Aspartate Amino Transf (AST/SGOT) 30, Alanine Aminotransferase (ALT/SGPT) 58, Alkaline Phosphatase 117, Total Protein 7.9, Albumin 4.2, Albumin/Globulin Ratio 1.1, Lipase 3403H, Ethyl Alcohol Level 0.005 05/06/20 16:23: Coronavirus (COVID-19)(PCR) NEGATIVE 05/07/20 05:11: Nucleated Red Blood Cells % (auto) 0.0, Anion Gap 5L, Glomerular Filtration Rate > 60.0, Calcium Level 8.5, Total Bilirubin 1.4H, Aspartate Amino Transf (AST/SGOT) 20, Alanine Aminotransferase (ALT/SGPT) 39, Alkaline Phosphatase 93, Total Protein 6.6, Albumin 3.2#, Albumin/Globulin Ratio 0.9 CBC/BMP Laboratory Tests 05/06/20 13:57 05/07/20 05:11 Current Medications Current Medications Medications (Trade) Dose Ordered Sig/Haylee Route PRN Reason Start Time Stop Time Status Last Admin Dose Admin Enoxaparin Sodium (Lovenox) 40 mg DAILY SC 05/07/20 09:00 05/07/20 08:46 Home Med (Med Rec Complete!) ASDIRECTED XX 05/06/20 15:00 05/06/20 15:03 DC Ketorolac Tromethamine (ToRADol) 15 mg Q6H PRN IV MODERATE PAIN (PS 5-7) 05/07/20 08:00 05/12/20 07:59 05/07/20 08:47 Morphine Sulfate (Morphine Sulfate Inj) 1 mg Q6H PRN IV MODERATE PAIN (PS 5-7) 05/06/20 16:15 05/06/20 19:49 DC Morphine Sulfate (Morphine Sulfate Inj) 1 mg Q6H PRN IV SEVERE PAIN (PS 8-10) 05/07/20 09:00 05/07/20 08:48 Morphine Sulfate (Morphine Sulfate Inj) 2 mg Q6H PRN IV SEVERE PAIN (PS 8-10) 05/06/20 16:15 05/06/20 19:49 DC 05/06/20 16:34 Morphine Sulfate (Morphine Sulfate Inj) 2 mg Q6H PRN IV MODERATE PAIN (PS 5-7) 05/06/20 22:15 05/07/20 08:12 DC Morphine Sulfate (Morphine Sulfate Inj) 4 mg Q6H PRN IV SEVERE PAIN (PS 8-10) 05/06/20 22:15 05/07/20 08:12 DC 05/07/20 02:37 Ondansetron HCl (ZOFRAN INJection) 4 mg Q4HP PRN IV NAUSEA OR VOMITING 05/06/20 16:15 05/07/20 08:46 Pantoprazole Sodium (Protonix) 40 mg Q24H IV 05/06/20 21:00 05/06/20 20:23 Sodium Chloride 1,000 ml @ 150 mls/hr Q6H40M IV 05/06/20 16:15 05/07/20 08:45 Allergies Coded Allergies: No Known Allergies (Unverified , 01/28/20) Nidhi Lewis MD May 07, 2020 13:51
[2020-05-07 14:00] VITALS: BP 121/80
[2020-05-07] MEDS: hydrOXYzine 10 MG TAB PO PRN (17:23)
[2020-05-07] MEDS: PANTOPRAZOLE 40MG VIAL (C9113 PER 1) IV SCH (20:24)
[2020-05-07 22:00] VITALS: BP 157/91
[2020-05-08] MEDS: KETOROLAC 30 MG/ML 1ML VIAL IV PRN ×4 (02:29→20:41)
[2020-05-08] MEDS: MORPHINE 2 MG/ML 1ML VIAL (J2270) IV PRN ×4 (02:29→20:42)
[2020-05-08] MEDS: NS 1,000 ML IV SCH ×3 (02:32→14:43)
[2020-05-08 06:00] VITALS: BP 147/77
[2020-05-08 06:49] LABS: HEMATOCRIT 36.3 % (42.0-52.0); HEMOGLOBIN 12.5 g/dl (13.5-17.5); MEAN CORPUSCULAR HEMOGLOBIN 33.4 pg (27.0-33.0); MEAN CORPUSCULAR HGB CONC 34.4 g/dl (32.0-36.5); MEAN CORPUSCULAR VOLUME 97.1 fl (80.0-96.0); PLATELET COUNT, AUTOMATED 113 10^3/uL (150-450); RED BLOOD COUNT 3.74 10^6/uL (4.30-6.10); WHITE BLOOD COUNT 5.6 10^3/uL (4.0-10.0)
[2020-05-08 07:14] LABS: ALBUMIN 2.8 GM/DL (3.2-5.2); ALT/SGPT 33 U/L (12-78); BILIRUBIN,TOTAL 1.1 MG/DL (0.2-1.0); BLOOD UREA NITROGEN 12 MG/DL (7-18); CALCIUM LEVEL 7.5 MG/DL (8.5-10.1); CARBON DIOXIDE LEVEL 24 MEQ/L (21-32); CHLORIDE LEVEL 110 MEQ/L (98-107); CREATININE FOR GFR 0.88 MG/DL (0.70-1.30); GLOMERULAR FILTRATION RATE > 60.0 (>60); GLUCOSE, FASTING 69 MG/DL (70-100); LIPASE 1182 U/L (73-393); POTASSIUM SERUM 3.8 MEQ/L (3.5-5.1); SODIUM LEVEL 140 MEQ/L (136-145); TOTAL PROTEIN 5.7 GM/DL (6.4-8.2)
[2020-05-08] MEDS: ENOXAPARIN 40MG/0.4ML SYRINGE (J1650 PER 10MG) SC SCH (09:05)
[2020-05-08] MEDS: ONDANSETRON 4MG/2ML VIAL IV PRN (09:05)
[2020-05-08 14:00] VITALS: BP 161/103
[2020-05-08] MEDS: hydrOXYzine 10 MG TAB PO PRN (14:43)
--- NOTE | 2020-05-08 20:30 | IPNPDOC ---
Date Seen The patient was seen on 05/08/20. Progress Note SUBJECTIVE: Pain continues to improve, tolerating clear liquid diet well. Deescalated pain meds. Denies chest pain, shortness of breath, fevers, chills, n/v/d. OBJECTIVE: PHYSICAL EXAMINATION: VS: Please see below CONSTITUTIONAL: No acute distress, resting in bed, AAO x 3 EYES: PERRLA, EOM intact HENT, MOUTH: Normocephalic, atraumatic, moist mucous membranes, NECK: SUPPLE, no JVD, no lymphadenopathy, no carotid bruit CV: Regular rate and rhythm, S1S2 normal, no murmurs/rubs/gallops RESPIRATORY: Clear to auscultation bilaterally, no rales/rhonchi/wheezes GI: mild tenderness palpation in LLQ, epigastric and LUQ-improving. BS positive in 4 quadrants, soft, nondistended, no rebound or guarding, no organomegaly : Deferred MUSCULOSKELETAL: Normal ROM. No cyanosis, clubbing, swelling, joint deformity, extremity edema INTEGUMENTARY: Intact, no rashes, no lesions, no erythema NEUROLOGIC: Cranial Nerves II-XII are intact, no focal deficits PSYCHIATRIC: Mood and affect are normal LABORATORY DATA: Please see below IMAGING: CT abd/pelvis: Findings consistent with acute pancreatitis. No drainable collection/abscess or pseudocyst. ASSESSMENT: Patient is a 29-year-old male with past nuchal history of alcohol abuse, obesity, history of bilateral pulmonary emboli (2016) and history of alcohol-induced pancreatitis (last admission 03/12-05/2020) admitted for acute recurrent pancreatitis. PLAN: 1. Acute recurrent pancreatitis -Hx of recurrent alcohol induced pancreatitis, patient denies alcohol use prior to this flare up -CT abd/pelvis above -Lipase 3403 on admission,f/u level in AM. -C/w toradol IV, morphine PRN -C/w CLD advance possibly further in AM, IVFs at 125 cc/hr 2. Alcohol abuse hx -Denies alcohol use since last admission, last flare up -No s/s of withdrawl -If suspicious, start CIWA protocol: ativan, thiamine, folic acid, MV, CIWA scale 3. Tobacco use -Does not wish to have nicotine patch 4. Hx of b/l pulmonary emboli (2016) -Treated with 6 months of anticoagulation and was told he could stop -Denies chest pain, shortness of breath currently 5. GI px -PPI 6. DVT px -Lovenox DISPOSITION: Admitted under inpatient status. Plan is discharge home when medically improved. VS, I&O, 24H, Fishbone Vital Signs/I&O Vital Signs Date Time Temp Pulse Resp B/P (MAP) Pulse Ox O2 Delivery O2 Flow Rate FiO2 05/08/20 14:54 18 Room Air 05/08/20 14:00 98.6 92 161/103 (122) 98 I&O- Last 24 Hours up to 6 AM 05/08/20 06:00 Intake Total 0 ml Output Total 0 ml Balance 0 ml Laboratory Data 24H LABS Laboratory Tests 2 05/08/20 06:01: Nucleated Red Blood Cells % (auto) 0.0, Anion Gap 6L, Glomerular Filtration Rate > 60.0, Calcium Level 7.5L, Total Bilirubin 1.1H, Aspartate Amino Transf (AST/SGOT) 24, Alanine Aminotransferase (ALT/SGPT) 33, Alkaline Phosphatase 87, Total Protein 5.7L, Albumin 2.8L, Albumin/Globulin Ratio 1.0, Lipase 1182H CBC/BMP Laboratory Tests 05/08/20 06:01 Current Medications Current Medications Medications (Trade) Dose Ordered Sig/Haylee Route PRN Reason Start Time Stop Time Status Last Admin Dose Admin Enoxaparin Sodium (Lovenox) 40 mg DAILY SC 05/07/20 09:00 05/08/20 09:05 Home Med (Med Rec Complete!) ASDIRECTED XX 05/06/20 15:00 05/06/20 15:03 DC Hydroxyzine HCl (Atarax) 10 mg Q6HP PRN PO ANXIETY/AGITATION 05/07/20 16:45 05/08/20 14:43 Ketorolac Tromethamine (ToRADol) 15 mg Q6H PRN IV MODERATE PAIN (PS 5-7) 05/07/20 08:00 05/12/20 07:59 05/08/20 14:45 Morphine Sulfate (Morphine Sulfate Inj) 1 mg Q6H PRN IV MODERATE PAIN (PS 5-7) 05/06/20 16:15 05/06/20 19:49 DC Morphine Sulfate (Morphine Sulfate Inj) 1 mg Q6H PRN IV SEVERE PAIN (PS 8-10) 05/07/20 09:00 12/4/20 14:44 Morphine Sulfate (Morphine Sulfate Inj) 2 mg Q6H PRN IV SEVERE PAIN (PS 8-10) 05/06/20 16:15 05/06/20 19:49 DC 05/06/20 16:34 Morphine Sulfate (Morphine Sulfate Inj) 2 mg Q6H PRN IV MODERATE PAIN (PS 5-7) 05/06/20 22:15 05/07/20 08:12 DC Morphine Sulfate (Morphine Sulfate Inj) 4 mg Q6H PRN IV SEVERE PAIN (PS 8-10) 05/06/20 22:15 05/07/20 08:12 DC 05/07/20 02:37 Ondansetron HCl (ZOFRAN INJection) 4 mg Q4HP PRN IV NAUSEA OR VOMITING 05/06/20 16:15 05/08/20 09:05 Pantoprazole Sodium (Protonix) 40 mg Q24H IV 05/06/20 21:00 05/07/20 20:24 Sodium Chloride 1,000 ml @ 125 mls/hr Q8H IV 05/06/20 16:15 05/08/20 14:43 Allergies Coded Allergies: No Known Allergies (Unverified , 01/28/20) Nidhi Lewis MD May 08, 2020 20:30
[2020-05-08] MEDS: PANTOPRAZOLE 40MG VIAL (C9113 PER 1) IV SCH (20:40)
[2020-05-08 22:00] VITALS: BP 174/97
[2020-05-09] MEDS: MORPHINE 2 MG/ML 1ML VIAL (J2270) IV PRN ×3 (02:45→14:46)
[2020-05-09] MEDS: KETOROLAC 30 MG/ML 1ML VIAL IV PRN ×4 (02:45→20:32)
[2020-05-09 06:00] VITALS: BP 156/80
[2020-05-09 08:36] LABS: HEMATOCRIT 34.5 % (42.0-52.0); HEMOGLOBIN 11.7 g/dl (13.5-17.5); MEAN CORPUSCULAR HEMOGLOBIN 31.8 pg (27.0-33.0); MEAN CORPUSCULAR HGB CONC 33.9 g/dl (32.0-36.5); MEAN CORPUSCULAR VOLUME 93.8 fl (80.0-96.0); PLATELET COUNT, AUTOMATED 128 10^3/uL (150-450); RED BLOOD COUNT 3.68 10^6/uL (4.30-6.10); WHITE BLOOD COUNT 5.1 10^3/uL (4.0-10.0)
[2020-05-09] MEDS: ENOXAPARIN 40MG/0.4ML SYRINGE (J1650 PER 10MG) SC SCH (08:52)
[2020-05-09 09:04] LABS: BLOOD UREA NITROGEN 5 MG/DL (7-18); CARBON DIOXIDE LEVEL 25 MEQ/L (21-32); CHLORIDE LEVEL 108 MEQ/L (98-107); CREATININE FOR GFR 0.72 MG/DL (0.70-1.30); GLOMERULAR FILTRATION RATE > 60.0 (>60); GLUCOSE, FASTING 87 MG/DL (70-100); POTASSIUM SERUM 3.4 MEQ/L (3.5-5.1); SODIUM LEVEL 140 MEQ/L (136-145)
[2020-05-09 09:05] LABS: ALBUMIN 2.9 GM/DL (3.2-5.2); ALT/SGPT 31 U/L (12-78); BILIRUBIN,TOTAL 0.8 MG/DL (0.2-1.0); CALCIUM LEVEL 7.7 MG/DL (8.5-10.1); LIPASE 587 U/L (73-393)
[2020-05-09] MEDS ORDERED: POTASSIUM CHLORIDE 10 MEQ SR TABLET PO ONE (09:30)
[2020-05-09 14:00] VITALS: BP 146/80
--- NOTE | 2020-05-09 16:48 | IPNPDOC ---
Date Seen The patient was seen on 05/09/20. Progress Note SUBJECTIVE: Pain further improved, advanced to 2 gm sodium diet. Lipase decreased. Denies chest pain, shortness of breath, fevers, chills, n/v/d. OBJECTIVE: PHYSICAL EXAMINATION: VS: Please see below CONSTITUTIONAL: No acute distress, resting in bed, AAO x 3 EYES: PERRLA, EOM intact HENT, MOUTH: Normocephalic, atraumatic, moist mucous membranes, NECK: SUPPLE, no JVD, no lymphadenopathy, no carotid bruit CV: Regular rate and rhythm, S1S2 normal, no murmurs/rubs/gallops RESPIRATORY: Clear to auscultation bilaterally, no rales/rhonchi/wheezes GI: mild tenderness palpation in LLQ, epigastric and LUQ-improving. BS positive in 4 quadrants, soft, nondistended, no rebound or guarding, no organomegaly : Deferred MUSCULOSKELETAL: Normal ROM. No cyanosis, clubbing, swelling, joint deformity, extremity edema INTEGUMENTARY: Intact, no rashes, no lesions, no erythema NEUROLOGIC: Cranial Nerves II-XII are intact, no focal deficits PSYCHIATRIC: Mood and affect are normal LABORATORY DATA: Please see below IMAGING: CT abd/pelvis: Findings consistent with acute pancreatitis. No drainable collection/abscess or pseudocyst. ASSESSMENT: Patient is a 29-year-old male with past nuchal history of alcohol abuse, obesity, history of bilateral pulmonary emboli (2016) and history of a lcohol-induced pancreatitis (last admission 03/12-05/2020) admitted for acute recurrent pancreatitis. PLAN: 1. Acute recurrent pancreatitis -Hx of recurrent alcohol induced pancreatitis, patient denies alcohol use prior to this flare up -CT abd/pelvis above -Lipase 3403 on admission--> 587 -Decreased IVFs, advanced to 2 gm sodium diet and tolerated first meal well -C/w toradol IV, morphine PRN -If further improved by 05/10/20, discharge home with f/u with PCP 2. Alcohol abuse hx -Denies alcohol use since last admission, last flare up -No s/s of withdrawl 3. Tobacco use -Does not wish to have nicotine patch 4. Hx of b/l pulmonary emboli (2016) -Treated with 6 months of anticoagulation and was told he could stop -Denies chest pain, shortness of breath currently 5. GI px -PPI 6. DVT px -Lovenox DISPOSITION: Admitted under inpatient status. Plan is discharge home when medic ally improved. VS, I&O, 24H, Fishbone Vital Signs/I&O Vital Signs Date Time Temp Pulse Resp B/P (MAP) Pulse Ox O2 Delivery O2 Flow Rate FiO2 05/09/20 14:46 16 05/09/20 06:00 97.2 64 156/80 (105) 97 Room Air I&O- Last 24 Hours up to 6 AM 05/09/20 06:00 Intake Total 2155 ml Output Total 0 ml Balance 2155 ml Laboratory Data 24H LABS Laboratory Tests 2 05/09/20 08:07: Nucleated Red Blood Cells % (auto) 0.0, Anion Gap 7L, Glomerular Filtration Rate > 60.0, Calcium Level 7.7L, Total Bilirubin 0.8, Aspartate Amino Transf (AST/SGOT) 20, Alanine Aminotransferase (ALT/SGPT) 31, Alkaline Phosphatase 83, Total Protein 6.0L, Albumin 2.9L, Albumin/Globulin Ratio 0.9, Lipase 587H CBC/BMP Laboratory Tests 05/09/20 08:07 Current Medications Current Medications Medications (Trade) Dose Ordered Sig/Haylee Route PRN Reason Start Time Stop Time Status Last Admin Dose Admin Enoxaparin Sodium (Lovenox) 40 mg DAILY SC 05/07/20 09:00 05/09/20 08:52 Home Med (Med Rec Complete!) ASDIRECTED XX 05/06/20 15:00 05/06/20 15:03 DC Hydroxyzine HCl (Atarax) 10 mg Q6HP PRN PO ANXIETY/AGITATION 05/07/20 16:45 05/08/20 14:43 Ketorolac Tromethamine (ToRADol) 15 mg Q6H PRN IV MODERATE PAIN (PS 5-7) 05/07/20 08:00 05/12/20 07:59 05/09/20 14:46 Morphine Sulfate (Morphine Sulfate Inj) 1 mg Q6H PRN IV MODERATE PAIN (PS 5-7) 05/06/20 16:15 05/06/20 19:49 DC Morphine Sulfate (Morphine Sulfate Inj) 1 mg Q6H PRN IV SEVERE PAIN (PS 8-10) 05/07/20 09:00 05/09/20 14:46 Morphine Sulfate (Morphine Sulfate Inj) 2 mg Q6H PRN IV SEVERE PAIN (PS 8-10) 05/06/20 16:15 05/06/20 19:49 DC 05/06/20 16:34 Morphine Sulfate (Morphine Sulfate Inj) 2 mg Q6H PRN IV MODERATE PAIN (PS 5-7) 05/06/20 22:15 05/07/20 08:12 DC Morphine Sulfate (Morphine Sulfate Inj) 4 mg Q6H PRN IV SEVERE PAIN (PS 8-10) 05/06/20 22:15 05/07/20 08:12 DC 05/07/20 02:37 Ondansetron HCl (ZOFRAN INJection) 4 mg Q4HP PRN IV NAUSEA OR VOMITING 05/06/20 16:15 05/08/20 09:05 Pantoprazole Sodium (Protonix) 40 mg Q24H IV 05/06/20 21:00 05/08/20 20:40 Sodium Chloride 1,000 ml @ 125 mls/hr Q8H IV 05/06/20 16:15 05/08/20 20:31 DC 05/08/20 14:43 Allergies Coded Allergies: No Known Allergies (Unverified , 01/28/20) Nidhi Lewis MD May 09, 2020 16:48
[2020-05-09] MEDS: PANTOPRAZOLE 40MG VIAL (C9113 PER 1) IV SCH (20:32)
[2020-05-09 22:00] VITALS: BP 158/88
[2020-05-10] MEDS: KETOROLAC 30 MG/ML 1ML VIAL IV PRN (02:30)
[2020-05-10] MEDS: MORPHINE 2 MG/ML 1ML VIAL (J2270) IV PRN (03:42)
[2020-05-10 06:00] VITALS: BP 158/86
[2020-05-10] MEDS ORDERED: ACET325C5 PO (07:41)
[2020-05-10] MEDS: ENOXAPARIN 40MG/0.4ML SYRINGE (J1650 PER 10MG) SC SCH (08:39)
[2020-05-10 10:09] LABS: HEMATOCRIT 36.2 % (42.0-52.0); MEAN CORPUSCULAR HGB CONC 35.9 g/dl (32.0-36.5); MEAN CORPUSCULAR VOLUME 91.9 fl (80.0-96.0); PLATELET COUNT, AUTOMATED 156 10^3/uL (150-450); RED BLOOD COUNT 3.94 10^6/uL (4.30-6.10); WHITE BLOOD COUNT 4.4 10^3/uL (4.0-10.0)
[2020-05-10 10:30] LABS: ALBUMIN 3.3 GM/DL (3.2-5.2); ALT/SGPT 39 U/L (12-78); BILIRUBIN,TOTAL 0.7 MG/DL (0.2-1.0); BLOOD UREA NITROGEN 5 MG/DL (7-18); CALCIUM LEVEL 8.6 MG/DL (8.5-10.1); CARBON DIOXIDE LEVEL 25 MEQ/L (21-32); CHLORIDE LEVEL 108 MEQ/L (98-107); CREATININE FOR GFR 0.82 MG/DL (0.70-1.30); GLOMERULAR FILTRATION RATE > 60.0 (>60); GLUCOSE, FASTING 90 MG/DL (70-100); POTASSIUM SERUM 3.4 MEQ/L (3.5-5.1); SODIUM LEVEL 140 MEQ/L (136-145); TOTAL PROTEIN 6.6 GM/DL (6.4-8.2)
--- NOTE | 2020-05-10 16:20 | DS.PDOC ---
Discharge Summary General Date of Admission May 06, 2020 at 16:01 Date of Discharge 05/10/20 Attending Physician: Nidhi Lewis MD Discharge Summary HISTORY OF PRESENT ILLNESS: Patient is a 29-year-old male with past medical history of alcohol abuse, obesity, history of bilateral pulmonary emboli (2017) and history of alcohol- induced pancreatitis (last admission 03/12-05/2020) presented to [facility] emergency room with 2 days of worsening abdominal pain, nausea, vomiting. As per the patient, symptoms started suddenly. Abdominal pain is located in LUQ, radiates to the back at times, constant, sharp, 10/10. Similar pain was felt on last admission here for acute pancreatitis. Vomiting was nonbloody and he has been unable to keep food or fluid down for 2 days. Other associated symptoms include lightheadedness. He denies alcohol use, sick contacts, diarrhea, fevers, chills, shortness of breath, sick contacts. Today he came to the emergency room due to worsening pain. In the emergency room, vital signs were wnl. WBC mildly elevated at 11.8, lipase was elevated at 3403. CT abdomen and pelvis: Findings consistent with acute pancreatitis. No drainable collection/abscess or pseudocyst. On exam the patient had severe left upper quadrant pain on palpation of his abdomen. There were no signs of alcohol withdrawal. The patient was ultimately admitted under inpatient status for acute recurrent pancreatitis. HOSPITAL COURSE: Patient's pain was initially treated with toradol and morphine. As pain improved, lipase did as well. He tolerated all advancement of his diets to ultimately a low salt diet. No increased abdominal pain, n/v/d. By 05/10/20 patient had decreased pain on exam, ambulating well. BP was elevated in 140- 150's systolic, he states he was told he may have high blood pressure. He received a lot of fluid here which might have made this worse, so would advise him to f/u with PCP to see if they would want to initiate treatment. He was discharged home with encouragement to follow up with the local [place] PCP. He was advised his last admission to establish primary care to be closely watched but never did. He has information for diet with recurrent pancreatitis. He is also advised to continue to not drink as this can cause pancreatitis flares. PAST MEDICAL HISTORY: 1. Hx of alcohol induced pancreatitis, recurrent 2. alcohol abuse hx 3. Tobacco use 4. Hx bilateral pulmonary emboli (2017, previously on AC but taken off 6 mo later) PAST SURGICAL HISTORY: Pin placement in the left wrist Dental surgery FAMILY HISTORY: Father: Healthy, alive. Mother: healthy , Alive. SOCIAL HISTORY: One pack per day every 23 days smoker for the past 10 years. Denies drug use currently and in the past. Ring's alcohol 1. per night on the weekends. Last drink was this past Monday. He lives in [place], he has no PCP and he is currently employed full-time. He is a full code. ALLERGIES: Please see below. DISCHARGE MEDICATIONS: Please see below. PHYSICAL EXAMINATION: VS: Please see below CONSTITUTIONAL: No acute distress, resting in bed, AAO x 3 EYES: PERRLA, EOM intact HENT, MOUTH: Normocephalic, atraumatic, moist mucous membranes, NECK: SUPPLE, no JVD, no lymphadenopathy, no carotid bruit CV: Regular rate and rhythm, S1S2 normal, no murmurs/rubs/gallops RESPIRATORY: Clear to auscultation bilaterally, no rales/rhonchi/wheezes GI: mild tenderness palpation in LLQ, epigastric and LUQ-improving. BS positive in 4 quadrants, soft, nondistended, no rebound or guarding, no organomegaly : Deferred MUSCULOSKELETAL: Normal ROM. No cyanosis, clubbing, swelling, joint deformity, extremity edema INTEGUMENTARY: Intact, no rashes, no lesions, no erythema NEUROLOGIC: Cranial Nerves II-XII are intact, no focal deficits PSYCHIATRIC: Mood and affect are normal LABORATORY DATA: Please see below IMAGING: CT abd/pelvis: Findings consistent with acute pancreatitis. No drainable collection/abscess or pseudocyst. ASSESSMENT: Patient is a 29-year-old male with past nuchal history of alcohol abuse, obesity, history of bilateral pulmonary emboli (2017) and history of alcohol-induced pancreatitis (last admission 03/12-05/2020) admitted for acute recurrent pancreatitis. PLAN: #Acute recurrent pancreatitis -Hx of recurrent alcohol induced pancreatitis, patient denies alcohol use prior to this flare up -CT abd/pelvis above -Lipase 3403 on admission--> 587 -Tolerating low salt diet well. -Tylenol PRN as o/p for pain, encouraged to establish with [facility] after discharge. If prior symptoms return he is to seek medical attention. #Hypokalemia, acute -Supplemented this hospital stay #HTN -BP remained 140-150's this hospital stay -Could be 2/2 to large amount of fluid he received -Would recommend he f/u with PCP to see if this persists then it may need treatment. -Asymptomatic #Alcohol abuse hx -Denies alcohol use since last admission, last flare up -No s/s of withdrawl # Tobacco use -Cessation counselling given #Hx of b/l pulmonary emboli (2017) -Treated with 6 months of anticoagulation and was told he could stop -Denies chest pain, shortness of breath currently DISPOSITION: Discharged home in improved condition, low salt diet, encouraged to establish care with [facility] as encouraged first admission earlier this year. TIME SPENT ON DISCHARGE: Greater than 30 minutes. Vital Signs/I&Os Vital Signs Date Time Temp Pulse Resp B/P (MAP) Pulse Ox O2 Delivery O2 Flow Rate FiO2 05/10/20 06:00 98.0 64 16 158/86 (110) 98 Room Air I&O- Last 24 Hours up to 6 AM 05/10/20 06:00 Intake Total 720 ml Balance 720 ml Laboratory Data Labs 24H Laboratory Tests 2 05/10/20 09:38: Nucleated Red Blood Cells % (auto) 0.0, Anion Gap 7L, Glomerular Filtration Rate > 60.0, Calcium Level 8.6, Total Bilirubin 0.7, Aspartate Amino Transf (AST/SGOT) 31, Alanine Aminotransferase (ALT/SGPT) 39, Alkaline Phosphatase 93, Total Protein 6.6, Albumin 3.3, Albumin/Globulin Ratio 1.0 CBC/BMP Laboratory Tests 05/10/20 09:38 Discharge Medications Scheduled Mirtazapine (Remeron) 30 Mg Tablet, 30 MG PO QHS, (Reported) Scheduled PRN Acetaminophen (Tylenol) 325 Mg Capsule, 650 MG PO Q6HP PRN for PAIN OR FEVER Hydroxyzine HCl (Hydroxyzine HCl) 10 Mg Tablet, 10 MG PO Q6H PRN for ANXIETY, (Reported) Allergies Coded Allergies: No Known Allergies (Unverified , 01/28/20) Nidhi Lewis MD May 10, 2020 16:20
== END 2020-05-10 10:38 | disposition home or self-care (01) | DRG 440 ==
LOC: M ED 13:31 → M ED INP 16:01 → M MS5PR 17:35
PROVIDERS: ADMIT Internal Medicine; ATTEND Internal Medicine
DX: K85.20 Alcohol induced acute pancreatitis without necrosis or infection (principal); F17.200 Nicotine dependence, unspecified, uncomplicated; E87.6 Hypokalemia; I10 Essential (primary) hypertension; Z86.711 Personal history of pulmonary embolism

== ENCOUNTER 2021-01-20 10:24 | Inpatient (IN) | payer OTHER ==
[~2021-01-20] VITALS: Ht 177.8 cm; Wt 107.9 kg
[~2021-01-20 10:24] MED LIST changes: +ACET325C5 PO
[2021-01-20] MEDS ORDERED: OMEP40CA4 PO (11:42)
[2021-01-20 11:53] LABS: BASO # 0.1 10^3/uL (0.0-0.2); BASO % 0.6 % (0.0-1.0); EOS # 0.2 10^3/uL (0.0-0.5); EOS % 1.5 % (0.0-3.0); HEMATOCRIT 43.9 % (42.0-52.0); HEMOGLOBIN 15.6 g/dl (13.5-17.5); LYMPH # 2.5 10^3/uL (1.5-5.0); LYMPH % 24.6 % (24.0-44.0); MEAN CORPUSCULAR HEMOGLOBIN 33.2 pg (27.0-33.0); MEAN CORPUSCULAR HGB CONC 35.5 g/dl (32.0-36.5); MEAN CORPUSCULAR VOLUME 93.4 fl (80.0-96.0); MONO # 0.6 10^3/uL (0.0-0.8); MONO % 6.3 % (2.0-8.0); NEUTROPHILS # 6.8 10^3/uL (1.5-8.5); NEUTROPHILS % 66.5 % (36.0-66.0); PLATELET COUNT, AUTOMATED 181 10^3/uL (150-450); WHITE BLOOD COUNT 10.2 10^3/uL (4.0-10.0)
[2021-01-20] MEDS ORDERED: NS 1,000 ML IV ONE (12:00)
[2021-01-20] MEDS ORDERED: ONDANSETRON 4MG/2ML VIAL IV ONE (12:00)
[2021-01-20] MEDS ORDERED: MORPHINE 4 MG/ML 1ML VIAL/SYRINGE (J2270) IV ONE (12:00)
[2021-01-20 12:18] LABS: ALBUMIN 3.6 GM/DL (3.2-5.2); ALT/SGPT 38 U/L (12-78); BILIRUBIN,DIRECT 0.1 MG/DL (0.0-0.2); BILIRUBIN,TOTAL 0.4 MG/DL (0.2-1.0); BLOOD UREA NITROGEN 8 MG/DL (7-18); CALCIUM LEVEL 8.7 MG/DL (8.5-10.1); CARBON DIOXIDE LEVEL 26 MEQ/L (21-32); CHLORIDE LEVEL 111 MEQ/L (98-107); GLOMERULAR FILTRATION RATE > 60.0 (>60); GLUCOSE, FASTING 96 MG/DL (70-100); LIPASE 1141 U/L (73-393); POTASSIUM SERUM 3.8 MEQ/L (3.5-5.1); SODIUM LEVEL 142 MEQ/L (136-145); TOTAL PROTEIN 7.2 GM/DL (6.4-8.2)
[2021-01-20 13:06] LABS: AMYLASE 146 U/L (25-115)
[2021-01-20] MEDS ORDERED: ISOVUE-370 76% 100ML VIAL As Ordered ONE (13:25)
[2021-01-20] MEDS ORDERED: HOME MED LIST COMPLETE! XX SCH (13:25)
[2021-01-20 13:35] VITALS: BP 147/50
[2021-01-20] MEDS ORDERED: hydrOXYzine 10 MG TAB PO PRN (13:40)
[2021-01-20] MEDS: MORPHINE 2 MG/ML 1ML VIAL (J2270) IV PRN ×3 (14:32→19:30)
[2021-01-20] MEDS: NS 1,000 ML IV SCH ×3 (14:32→23:02)
[2021-01-20] MEDS ORDERED: LORazepam 2 MG TAB PO PRN (14:35)
--- NOTE | 2021-01-20 14:46 | HPEPDOC ---
General Date of Admission Jan 20, 2021 at 14:02 Date of Service: Jan 20, 2021 Chief Complaint The patient is a 30-year-old male admitted with a reason for visit of Acute Pancreatitis. History of Present Illness Mr. Connor is a 30-year-old male with alcohol use disorder and history of alcohol induced pancreatitis who presents with abdominal pain. Patient's last episode of acute pancreatitis was May 06, 2020. He was sober from alcohol for about 7 months. About 2 months ago, he started drinking alcohol again. He tells me he drinks about half a pint of vodka every other day. Last alcoholic drink was 2 days ago. Yesterday morning, he suddenly woke up with abdominal pain. Pain is in the left upper quadrant. It is sharp and radiate towards the back. Severity is 9 out of 10. He tried to tolerate food, but he was nauseous. He vomited twice. No blood in the vomit. He also has some tenderness on swallowing food. Otherwise he denies any fever or chills, chest pain, dyspnea, cough, diarrhea, or dysuria. Denies any new medications or changes to his medications. Patient came to the ED for evaluation. Patient had elevated lipase with abdominal pain suggestive of acute pancreatitis. He has risk factors for acute pancreatitis. Request the ED order a CT of the abdomen pelvis with IV contrast. Otherwise patient will be admitted for acute pancreatitis. Home Medications Scheduled Mirtazapine (Remeron) 30 Mg Tablet, 30 MG PO QHS, (Reported) Omeprazole (Omeprazole) 40 Mg Capsule.dr, 40 MG PO DAILY, (Reported) Scheduled PRN Hydroxyzine HCl (Hydroxyzine HCl) 10 Mg Tablet, 10 MG PO Q6H PRN for ANXIETY, (Reported) Allergies Coded Allergies: No Known Allergies (Unverified , 01/28/20) Past Medical History Medical History 1. History of alcohol induced pancreatitis 2. Alcohol use disorder 3. Tobacco use disorder 4. History of bilateral PE in 2017 (previously on anticoagulation but taken off 6 months later) Surgical History 1. Pin placement in the left wrist 2. Dental surgery Family History Father: Denies any past medical history in father Mother: Denies any past medical history in mother Social History * Smoker: current smoker (2 packs/week) Alcohol: other (Half a pint of vodka every other day) Drugs: denies A-FIB/CHADSVASC A-FIB History Current/History of A-Fib/PAF?: No Review of Systems Constitutional: Denies: Chills, Fever Eyes: Denies: Vision change ENT: Reports: Other Symptoms (Odynophagia) Skin: Denies: Rash Pulmonary: Denies: Dyspnea, Cough Cardiovascular: Denies: Chest Pain Gastrointestinal: Reports: Nausea, Vomiting (2 times), Abdominal Pain; Denies: Diarrhea Genitourinary: Denies: Dysuria Hematologic: Denies: Bruising Neurological: Denies: Numbness Psych: Reports: Anxiety Physical Examination General Exam: Positive: Alert, Cooperative Eye Exam: Positive: EOMI; Negative: Sclera icteric ENT Exam: Positive: Atraumatic Neck Exam: Positive: Supple Chest Exam: Positive: Clear to auscultation; Negative: Rales, Rhonchi, Wheezing Heart Exam: Positive: Rate Normal, Regular Rhythm Abdomen Exam: Positive: Normal bowel sounds, Tenderness Extremity Exam: Negative: Edema Neuro Exam: Positive: Normal Speech, Cranial Nerves 3-12 NL Psych Exam: Positive: Mental status NL, Mood NL Vital Signs Vital Signs Date Time Temp Pulse Resp B/P (MAP) Pulse Ox O2 Delivery O2 Flow Rate FiO2 01/20/21 13:00 147/99 (115) 01/20/21 12:55 73 18 98 Room Air 01/20/21 10:24 98.9 Laboratory Data Labs 24H Laboratory Tests 2 01/20/21 11:40: Immature Granulocyte % (Auto) 0.5, Neutrophils (%) (Auto) 66.5H, Lymphocytes (%) (Auto) 24.6, Monocytes (%) (Auto) 6.3, Eosinophils (%) (Auto) 1.5, Basophils (%) (Auto) 0.6, Neutrophils # (Auto) 6.8, Lymphocytes # (Auto) 2.5, Monocytes # (Auto) 0.6, Eosinophils # (Auto) 0.2, Basophils # (Auto) 0.1, Nucleated Red Blood Cells % (auto) 0.0, Anion Gap 5L, Glomerular Filtration Rate > 60.0, Calcium Level 8.7, Total Bilirubin 0.4, Direct Bilirubin 0.1, Aspartate Amino Transf (AST/SGOT) 24, Alanine Aminotransferase (ALT/SGPT) 38, Alkaline Phosphatase 111, Total Protein 7.2, Albumin 3.6, Albumin/Globulin Ratio 1.0, Amylase Level 146H, Lipase 1141H 01/20/21 13:03: Coronavirus (COVID-19)(PCR) NEGATIVE CBC/BMP Laboratory Tests 01/20/21 11:40 Assessment/Plan Mr. Connor is a 30-year-old male with alcohol use disorder and history of alcohol induced pancreatitis who presents with abdominal pain. Patient most likely has alcohol induced pancreatitis. Will start patient on CIWA protocol with as needed lorazepam, multivitamin, folic acid, and thiamine. Will monitor patient's magnesium level. Acute pancreatitis we treated with IV fluids, bowel rest, and pain control. Requested CT of the abdomen pelvis with IV contrast only Plan / VTE VTE Prophylaxis Ordered?: Yes Plan Plan 1. Acute alcoholic pancreatitis Bowel rest and IV fluids Analgesia with IV morphine Zofran for nausea Supportive care Pending a CT of the abdomen pelvis with IV contrast only 2. Alcohol use disorder CIWA protocol with as needed lorazepam Thiamine, folic acid, multivitamin 3. Tobacco use disorder Patient smokes 2 packs of cigarettes a week Patient declined nicotine patch 4. Anxiety Continue hydroxyzine as needed 5. GERD Continue omeprazole 6. Insomnia Continue mirtazapine 7. DVT prophylaxis SCDs and teds. When abdominal pain improves, can switch to Lovenox Disposition: Pending clinical improvement CRIS BUSH DO Jan 20, 2021 14:46
--- NOTE | 2021-01-20 14:49 | REP ---
INDICATION: pancreatitis COMPARISON: 05/06/2020. TECHNIQUE: CT Scan of the abdomen and pelvis was performed with intravenous administration of 100 cc of Isovue 370, without oral contrast. Sagittal and coronal reconstruction images are performed. FINDINGS: Lung bases: There are mild dependent atelectatic changes. Liver: Normal Gallbladder: Unremarkable. Spleen: Normal. Adrenals: Normal. Pancreas: Hazy inflammatory densities around the pancreas consistent with pancreatitis. There is no pseudocyst identified. Kidneys: Normal. Small and large bowel: Unremarkable. Free fluid: None. Abdominal aorta: No aneurysm or dissection. Adenopathy: None. Appendix: Not inflamed. Osseous structures: Unremarkable. Pelvis: No mass. IMPRESSION: There are findings compatible with pancreatitis. There is no associated pseudocyst. No other evidence of free fluid or fluid collection. No other significant finding. <Electronically signed by Ilya Chew > 01/20/21 2523
[2021-01-20 15:25] LABS: TRIGLYCERIDES LEVEL 216 MG/DL (<150)
[2021-01-20 15:49] VITALS: BP 147/90
[2021-01-20] MEDS: ONDANSETRON 4MG/2ML VIAL IV PRN (16:48)
[2021-01-20] MEDS: THIAMINE 100 MG TAB PO SCH (20:06)
[2021-01-20 20:14] VITALS: BP 149/98
[2021-01-20] MEDS ORDERED: FOLIC ACID 1 MG TAB PO SCH (21:00)
[2021-01-20] MEDS ORDERED: MIRTAZAPINE 15 MG TAB PO SCH (21:00)
[2021-01-20] MEDS ORDERED: MULTIVITAMINS/MINERALS THERAP 1 TAB PO SCH (21:00)
[2021-01-20] MEDS ORDERED: OMEPRAZOLE 20 MG CAP PO SCH (21:00)
[2021-01-20] MEDS ORDERED: KETOROLAC 30 MG/ML 1ML VIAL IV ONE (21:35)
--- NOTE | 2021-01-20 23:46 | ECGEPIP ---
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 Decreased heart rate compared with 03/12/2020. Electronically Signed on 01-20-2021 23:46:22 EDT by Jigar Hope
[2021-01-21] MEDS: MORPHINE 2 MG/ML 1ML VIAL (J2270) IV PRN ×6 (00:33→20:20)
[2021-01-21] MEDS: ONDANSETRON 4MG/2ML VIAL IV PRN ×3 (02:04→13:43)
[2021-01-21] MEDS: NS 1,000 ML IV SCH ×8 (02:37→23:33)
[2021-01-21] MEDS: KETOROLAC 30 MG/ML 1ML VIAL IV PRN ×4 (03:42→22:10)
[2021-01-21 06:54] VITALS: BP 149/97
[2021-01-21 08:00] VITALS: BP 149/97
[2021-01-21 08:21] LABS: MEAN CORPUSCULAR HEMOGLOBIN 32.2 pg (27.0-33.0); MEAN CORPUSCULAR HGB CONC 34.5 g/dl (32.0-36.5); MEAN CORPUSCULAR VOLUME 93.4 fl (80.0-96.0); PLATELET COUNT, AUTOMATED 141 10^3/uL (150-450); RED BLOOD COUNT 4.07 10^6/uL (4.30-6.10); WHITE BLOOD COUNT 10.6 10^3/uL (4.0-10.0)
[2021-01-21 08:29] LABS: HEMOGLOBIN 13.1 g/dl (13.5-17.5)
[2021-01-21 08:48] LABS: BLOOD UREA NITROGEN 8 MG/DL (7-18); CARBON DIOXIDE LEVEL 23 MEQ/L (21-32); CHLORIDE LEVEL 112 MEQ/L (98-107); GLOMERULAR FILTRATION RATE > 60.0 (>60); GLUCOSE, FASTING 99 MG/DL (70-100); LIPASE 4289 U/L (73-393); MAGNESIUM LEVEL 1.6 MG/DL (1.8-2.4); POTASSIUM SERUM 3.8 MEQ/L (3.5-5.1); SODIUM LEVEL 142 MEQ/L (136-145)
[2021-01-21] MEDS: THIAMINE 100 MG TAB PO SCH (09:00)
[2021-01-21] MEDS: PROMETHAZINE INJ 25 MG/ML VIAL (J2550) IV PRN ×3 (09:52→22:14)
[2021-01-21 14:00] VITALS: BP_SYST 131; BP_SYST 136; BP_DIAS 109; BP_DIAS 88
--- NOTE | 2021-01-21 14:08 | IPNPDOC ---
Subjective Date Seen The patient was seen on 01/21/21. Subjective Chief Complaint/HPI Mr. Connor is a 30-year-old male with alcohol use disorder and history of alcohol induced pancreatitis who presents with abdominal pain and found to have acute pancreatitis. Overnight, he tried to take oral medication, but had a hard time tolerating oral medication. Ketorolac was added to help control pain. Today, he denies chest pain or dyspnea, but still has significant abdominal pain. Lipase increased from 1000 to 4000. Will increase fluids from 250mL/hr to 500mL/hr. Will stop all oral medications and switch to IV medication. Objective Physical Examination General Exam: Positive: Alert, Cooperative, Mild Distress Eye Exam: Positive: EOMI; Negative: Sclera icteric ENT Exam: Positive: Atraumatic Neck Exam: Positive: Supple Chest Exam: Positive: Clear to auscultation; Negative: Rales, Rhonchi, Wheezing Heart Exam: Positive: Rate Normal, Regular Rhythm Abdomen Exam: Positive: Normal bowel sounds, Tenderness Extremity Exam: Negative: Edema Neuro Exam: Positive: Normal Speech, Cranial Nerves 3-12 NL Psych Exam: Positive: Mental status NL, Mood NL Assessment /Plan Assessment Mr. Connor is a 30-year-old male with alcohol use disorder and history of alcohol induced pancreatitis who presents with abdominal pain. Patient most likely has alcohol induced pancreatitis. Will start patient on CIWA protocol with as needed lorazepam, multivitamin, folic acid, and thiamine. Will monitor patient's magnesium level. Acute pancreatitis we treated with IV fluids, bowel rest, and pain control. CT abd/pelvis consistent with acute pancreatitis. Ther e is no pseudocyst or evidence of fluid collection. Plan/VTE VTE Prophylaxis Ordered?: Yes Plan 1. Acute alcoholic pancreatitis Bowel rest and IV fluids Analgesia with IV morphine Zofran for nausea Supportive care Triglycerides mildly elevated at 216 -CT abd/pelvis demonstrates acute pancreatitis without fluid collection or pseudocyst. 2. Alcohol use disorder CIWA protocol with as needed lorazepam IV thiamine as patient is not tolerating orals 3. Tobacco use disorder Patient smokes 2 packs of cigarettes a week Patient declined nicotine patch 4. Anxiety Continue hydroxyzine as needed 5. GERD Continue omeprazole 6. Insomnia Continue mirtazapine 7. DVT prophylaxis SCDs and teds. When abdominal pain improves, can switch to Lovenox Disposition: Pending clinical improvement VS, I&O, 24H, Fishbone Vital Signs/I&O Vital Signs Date Time Temp Pulse Resp B/P (MAP) Pulse Ox O2 Delivery O2 Flow Rate FiO2 01/21/21 13:43 20 Room Air 01/21/21 08:00 73 149/97 01/21/21 06:54 97.3 97 I&O- Last 24 Hours up to 6 AM 01/21/21 06:00 Intake Total 1125 ml Output Total 475 ml Balance 650 ml Laboratory Data 24H LABS Laboratory Tests 2 01/21/21 07:39: Nucleated Red Blood Cells % (auto) 0.0, Anion Gap 7L, Glomerular Filtration Rate > 60.0, Calcium Level 8.0L, Magnesium Level 1.6L, Lipase 4289H CBC/BMP Laboratory Tests 01/21/21 07:39 CRIS BUSH DO Jan 21, 2021 14:08
[2021-01-21] MEDS: THIAMINE 200MG/2ML VIAL (J3411 PER 100MG) IV SCH (16:05)
[2021-01-21] MEDS: PANTOPRAZOLE 40MG VIAL (C9113 PER 1) IV SCH (20:24)
[2021-01-21 22:00] VITALS: BP 173/98
[2021-01-22] MEDS: LORazepam 2 MG/ML VIAL IV PRN ×3 (01:29→17:59)
[2021-01-22] MEDS: NS 1,000 ML IV SCH ×4 (01:34→12:53)
[2021-01-22] MEDS: MORPHINE 2 MG/ML 1ML VIAL (J2270) IV PRN ×5 (01:40→23:09)
[2021-01-22] MEDS: KETOROLAC 30 MG/ML 1ML VIAL IV PRN ×4 (04:26→23:50)
[2021-01-22] MEDS: PROMETHAZINE INJ 25 MG/ML VIAL (J2550) IV PRN ×3 (04:29→17:50)
[2021-01-22 06:00] VITALS: BP 162/86
[2021-01-22 07:32] LABS: HEMOGLOBIN 11.9 g/dl (13.5-17.5); MEAN CORPUSCULAR HEMOGLOBIN 32.3 pg (27.0-33.0); MEAN CORPUSCULAR VOLUME 92.4 fl (80.0-96.0); PLATELET COUNT, AUTOMATED 111 10^3/uL (150-450); RED BLOOD COUNT 3.68 10^6/uL (4.30-6.10); WHITE BLOOD COUNT 8.8 10^3/uL (4.0-10.0)
[2021-01-22 07:59] LABS: BLOOD UREA NITROGEN 6 MG/DL (7-18); CALCIUM LEVEL 7.2 MG/DL (8.5-10.1); CARBON DIOXIDE LEVEL 23 MEQ/L (21-32); CHLORIDE LEVEL 111 MEQ/L (98-107); GLOMERULAR FILTRATION RATE > 60.0 (>60); GLUCOSE, FASTING 74 MG/DL (70-100); LIPASE 1339 U/L (73-393); MAGNESIUM LEVEL 1.5 MG/DL (1.8-2.4); POTASSIUM SERUM 3.4 MEQ/L (3.5-5.1); SODIUM LEVEL 139 MEQ/L (136-145)
[2021-01-22 08:00] VITALS: BP 162/86
[2021-01-22] MEDS: THIAMINE 200MG/2ML VIAL (J3411 PER 100MG) IV SCH (08:03)
[2021-01-22] MEDS: ONDANSETRON 4MG/2ML VIAL IV PRN ×2 (08:03→14:16)
[2021-01-22 14:00] VITALS: BP 150/56
[2021-01-22] MEDS: LR 1,000 ML IV SCH ×4 (14:12→23:47)
[2021-01-22 15:50] VITALS: BP 150/56
--- NOTE | 2021-01-22 17:40 | IPNPDOC ---
Text Note Date of Service The patient was seen on 01/22/21. NOTE Hospitalist Progress Note Subjective: Patient reports that he still is in pain at this time, although it has subsided quite a bit. Nevertheless, he does not feel comfortable attempting eating or drinking anything at this time. He reports that the current pain medications he is using is sufficient. Otherwise, he continues to receive aggressive fluids and he does continue to urinate quite well. Remainder review of systems is negative. Objective: General: Awake, alert, oriented 3. Not in any acute distress. HEENT: Head normocephalic, atraumatic, sclera are nonicteric. Hearing is grossly intact to conversation. Respiratory: Clear to auscultation bilaterally with no wheezes, rales, or rhonchi. Cardiovascular: Regular rate and rhythm, with no rubs, gallops, or murmur. Abdomen: Soft, somewhat tender to palpation, nondistended, no hepatosplenomegaly appreciated. Bowel sounds present. Extremities: 2+ pulses in the radial and dorsalis pedis bilaterally. No evidence of clubbing or cyanosis. Assessment/Plan: 1. Acute alcoholic pancreatitis Bowel rest and IV fluids Analgesia with IV morphine Zofran for nausea Supportive care Triglycerides only mildly elevated -CT abd/pelvis demonstrates acute pancreatitis without fluid collection or pseudocyst. 2. Alcohol use disorder [facility] protocol with as needed lorazepam IV thiamine as patient is not tolerating orals 3. Tobacco use disorder Patient smokes 2 packs of cigarettes a week Patient declined nicotine patch 4. Anxiety Continue hydroxyzine as needed 5. GERD Continue omeprazole 6. Insomnia Continue mirtazapine 7. DVT prophylaxis SCDs and teds. When abdominal pain improves, can switch to Lovenox Disposition: Pending clinical improvement VS,Roberta, I+O VS, Roberta, I+O Laboratory Tests 01/22/21 06:43 Vital Signs Date Time Temp Pulse Resp B/P (MAP) Pulse Ox O2 Delivery O2 Flow Rate FiO2 01/22/21 14:26 18 Room Air 01/22/21 14:00 97.9 81 150/56 (87) 94 I&O- Last 24 Hours up to 6 AM 01/22/21 06:00 Intake Total 5120 ml Output Total 1750 ml Balance 3370 ml SU VENTURA DO Jan 22, 2021 17:40
[2021-01-22 20:09] VITALS: BP 163/85
[2021-01-22] MEDS: PANTOPRAZOLE 40MG VIAL (C9113 PER 1) IV SCH (20:14)
[2021-01-22 22:00] VITALS: BP 163/85
[2021-01-23] MEDS: LR 1,000 ML IV SCH ×7 (01:40→21:40)
[2021-01-23] MEDS: MORPHINE 2 MG/ML 1ML VIAL (J2270) IV PRN ×6 (03:00→22:43)
[2021-01-23] MEDS: LORazepam 2 MG/ML VIAL IV PRN ×2 (03:18→22:42)
[2021-01-23 05:13] VITALS: BP 163/85
[2021-01-23] MEDS: KETOROLAC 30 MG/ML 1ML VIAL IV PRN ×3 (05:49→18:39)
[2021-01-23 06:00] VITALS: BP 166/87
[2021-01-23] MEDS: ONDANSETRON 4MG/2ML VIAL IV PRN (06:03)
[2021-01-23 07:36] LABS: HEMATOCRIT 31.6 % (42.0-52.0); HEMOGLOBIN 11.2 g/dl (13.5-17.5); MEAN CORPUSCULAR HEMOGLOBIN 32.2 pg (27.0-33.0); MEAN CORPUSCULAR HGB CONC 35.4 g/dl (32.0-36.5); MEAN CORPUSCULAR VOLUME 90.8 fl (80.0-96.0); PLATELET COUNT, AUTOMATED 111 10^3/uL (150-450); RED BLOOD COUNT 3.48 10^6/uL (4.30-6.10); WHITE BLOOD COUNT 6.4 10^3/uL (4.0-10.0)
[2021-01-23 08:00] LABS: BLOOD UREA NITROGEN 6 MG/DL (7-18); CALCIUM LEVEL 7.3 MG/DL (8.5-10.1); CARBON DIOXIDE LEVEL 25 MEQ/L (21-32); CHLORIDE LEVEL 107 MEQ/L (98-107); GLOMERULAR FILTRATION RATE > 60.0 (>60); GLUCOSE, FASTING 73 MG/DL (70-100); LIPASE 654 U/L (73-393); MAGNESIUM LEVEL 1.5 MG/DL (1.8-2.4); POTASSIUM SERUM 3.3 MEQ/L (3.5-5.1); SODIUM LEVEL 140 MEQ/L (136-145)
[2021-01-23] MEDS: THIAMINE 200MG/2ML VIAL (J3411 PER 100MG) IV SCH (10:04)
[2021-01-23] MEDS ORDERED: POTASSIUM CHLORIDE 10 MEQ SR TABLET PO ONE (12:00)
[2021-01-23] MEDS ORDERED: MAG SULF 1GM/100ML (MAG RUN) 1 GM in IV 1 EA IV ONE (12:00)
[2021-01-23 14:00] VITALS: BP 148/85
--- NOTE | 2021-01-23 17:13 | IPNPDOC ---
Text Note Date of Service The patient was seen on 01/23/21. NOTE Hospitalist Progress Note Subjective: On examination today he reports that he is not really having much pain while at rest. He has tried drinking some water rather than just sips, and that seems to be going down okay. I will put in the order that he may advance his diet as tolerated, and will discontinue the IV fluids when he is tolerating oral intake. Objective: General: Awake, alert, oriented 3. Not in any acute distress. HEENT: Head normocephalic, atraumatic, sclera are nonicteric. Hearing is grossly intact to conversation. Respiratory: Clear to auscultation bilaterally with no wheezes, rales, or rhonchi. Cardiovascular: Regular rate and rhythm, with no rubs, gallops, or murmur. Abdomen: Soft, somewhat tender to palpation, nondistended, no hepatosplenomegaly appreciated. Bowel sounds present. Extremities: 2+ pulses in the radial and dorsalis pedis bilaterally. No evidence of clubbing or cyanosis. Assessment/Plan: 1. Acute alcoholic pancreatitis Bowel rest and IV fluids, at this time we may attempt advancing his diet. Analgesia with IV morphine, ketorolac Zofran for nausea Supportive care Triglycerides only mildly elevated -CT abd/pelvis demonstrates acute pancreatitis without fluid collection or pseudocyst. 2. Alcohol use disorder [facility] protocol with as needed lorazepam Continue thiamine supplementation 3. Tobacco use disorder Patient smokes 2 packs of cigarettes a week Patient declined nicotine patch 4. Anxiety Continue hydroxyzine as needed 5. GERD Continue omeprazole 6. Insomnia Continue mirtazapine 7. DVT prophylaxis SCDs and teds. When abdominal pain improves, can switch to Lovenox Disposition: Pending clinical improvement VS,Roberta, I+O VS, Roberta, I+O Laboratory Tests 01/23/21 07:01 Vital Signs Date Time Temp Pulse Resp B/P (MAP) Pulse Ox O2 Delivery O2 Flow Rate FiO2 01/23/21 14:59 18 Room Air 01/23/21 14:00 97.2 18 148/85 (106) 01/23/21 06:00 95 I&O- Last 24 Hours up to 6 AM 01/23/21 06:00 Intake Total 2610 ml Output Total 4800 ml Balance -2190 ml SU VENTURA DO Jan 23, 2021 17:12
[2021-01-23] MEDS: PANTOPRAZOLE 40MG VIAL (C9113 PER 1) IV SCH (20:19)
[2021-01-23 20:21] VITALS: BP 145/82
[2021-01-23] MEDS ORDERED: LORazepam 2 MG/ML VIAL As Ordered ONE (22:29)
[2021-01-24] MEDS: LR 1,000 ML IV SCH ×2 (00:49→01:10)
[2021-01-24] MEDS: KETOROLAC 30 MG/ML 1ML VIAL IV PRN ×4 (00:50→20:02)
[2021-01-24] MEDS: MORPHINE 2 MG/ML 1ML VIAL (J2270) IV PRN ×6 (04:37→23:20)
[2021-01-24 06:00] VITALS: BP 158/89
[2021-01-24 07:37] LABS: HEMATOCRIT 36.8 % (42.0-52.0); MEAN CORPUSCULAR HEMOGLOBIN 32.5 pg (27.0-33.0); MEAN CORPUSCULAR HGB CONC 36.4 g/dl (32.0-36.5); MEAN CORPUSCULAR VOLUME 89.3 fl (80.0-96.0); PLATELET COUNT, AUTOMATED 132 10^3/uL (150-450); RED BLOOD COUNT 4.12 10^6/uL (4.30-6.10); WHITE BLOOD COUNT 5.4 10^3/uL (4.0-10.0)
[2021-01-24 07:39] LABS: HEMOGLOBIN 13.4 g/dl (13.5-17.5)
[2021-01-24 07:48] LABS: BLOOD UREA NITROGEN 5 MG/DL (7-18); CALCIUM LEVEL 7.8 MG/DL (8.5-10.1); CARBON DIOXIDE LEVEL 27 MEQ/L (21-32); CHLORIDE LEVEL 105 MEQ/L (98-107); CREATININE FOR GFR 0.87 MG/DL (0.70-1.30); GLOMERULAR FILTRATION RATE > 60.0 (>60); GLUCOSE, FASTING 90 MG/DL (70-100); LIPASE 611 U/L (73-393); POTASSIUM SERUM 3.5 MEQ/L (3.5-5.1); SODIUM LEVEL 138 MEQ/L (136-145)
[2021-01-24] MEDS: THIAMINE 200MG/2ML VIAL (J3411 PER 100MG) IV SCH (09:37)
[2021-01-24 14:00] VITALS: BP_SYST 148; BP_SYST 149; BP_DIAS 85; BP_DIAS 88
[2021-01-24] MEDS: PANTOPRAZOLE 40MG VIAL (C9113 PER 1) IV SCH (20:02)
--- NOTE | 2021-01-24 20:20 | IPNPDOC ---
Text Note Date of Service The patient was seen on 01/24/21. NOTE Hospitalist Progress Note Subjective: Patient reports that he was actually able to tolerate small amounts of liquid including water, soda, and he reports that actually the broth that he had went down possibly the best. Nevertheless, he does still continue to have some pain, and at the time my evaluation was not necessarily ready to move on from a liquid diet. IV fluids have been discontinued since he is tolerating at least a liquid diet. May continue to advance diet as tolerated. Objective: General: Awake, alert, oriented 3. Not in any acute distress. HEENT: Head normocephalic, atraumatic, sclera are nonicteric. Hearing is grossly intact to conversation. Respiratory: Clear to auscultation bilaterally with no wheezes, rales, or rhonchi. Cardiovascular: Regular rate and rhythm, with no rubs, gallops, or murmur. Abdomen: Soft, somewhat tender to palpation, nondistended, no hepatosplenomegaly appreciated. Bowel sounds present. Extremities: 2+ pulses in the radial and dorsalis pedis bilaterally. No evidence of clubbing or cyanosis. Assessment/Plan: 1. Acute alcoholic pancreatitis Continue to advance diet as tolerated Analgesia with IV morphine, ketorolac Zofran for nausea Supportive care Triglycerides only mildly elevated -CT abd/pelvis demonstrates acute pancreatitis without fluid collection or pseudocyst. 2. Alcohol use disorder [facility] protocol with as needed lorazepam Continue thiamine supplementation 3. Tobacco use disorder Patient smokes 2 packs of cigarettes a week Patient declined nicotine patch 4. Anxiety Continue hydroxyzine as needed 5. GERD Continue omeprazole 6. Insomnia Continue mirtazapine 7. DVT prophylaxis SCDs and teds. When abdominal pain improves, can switch to Lovenox Disposition: Pending clinical improvement VS,Fishbone, I+O VS, Fishbone, I+O Laboratory Tests 01/24/21 07:02 Vital Signs Date Time Temp Pulse Resp B/P (MAP) Pulse Ox O2 Delivery O2 Flow Rate FiO2 01/24/21 17:28 18 Room Air 01/24/21 14:00 98.4 70 149/88 (108) 99 I&O- Last 24 Hours up to 6 AM 01/24/21 06:00 Intake Total 1470 ml Output Total 5025 ml Balance -3555 ml SU VENTURA DO Jan 24, 2021 20:20
[2021-01-24 22:00] VITALS: BP 154/95
[2021-01-25] MEDS: MORPHINE 2 MG/ML 1ML VIAL (J2270) IV PRN ×3 (02:29→07:57)
[2021-01-25] MEDS: KETOROLAC 30 MG/ML 1ML VIAL IV PRN (02:49)
[2021-01-25 06:00] VITALS: BP 155/95
[2021-01-25 06:12] LABS: HEMATOCRIT 35.9 % (42.0-52.0); HEMOGLOBIN 13.2 g/dl (13.5-17.5); MEAN CORPUSCULAR HEMOGLOBIN 32.5 pg (27.0-33.0); MEAN CORPUSCULAR VOLUME 88.4 fl (80.0-96.0); PLATELET COUNT, AUTOMATED 150 10^3/uL (150-450); RED BLOOD COUNT 4.06 10^6/uL (4.30-6.10); WHITE BLOOD COUNT 5.3 10^3/uL (4.0-10.0)
[2021-01-25 06:25] LABS: BLOOD UREA NITROGEN 7 MG/DL (7-18); CARBON DIOXIDE LEVEL 28 MEQ/L (21-32); CHLORIDE LEVEL 105 MEQ/L (98-107); CREATININE FOR GFR 0.89 MG/DL (0.70-1.30); GLOMERULAR FILTRATION RATE > 60.0 (>60); GLUCOSE, FASTING 91 MG/DL (70-100); LIPASE 506 U/L (73-393); MAGNESIUM LEVEL 2.1 MG/DL (1.8-2.4); POTASSIUM SERUM 3.2 MEQ/L (3.5-5.1); SODIUM LEVEL 140 MEQ/L (136-145)
[2021-01-25 06:39] LABS: MEAN CORPUSCULAR HGB CONC 36.8 g/dl (32.0-36.5)
[2021-01-25] MEDS ORDERED: POTASSIUM CHLORIDE 10 MEQ SR TABLET PO ONE (07:30)
[2021-01-25 09:56] VITALS: BP 155/95
--- NOTE | 2021-01-25 11:22 | DS.PDOC ---
Discharge Summary General Date of Admission Jan 20, 2021 at 14:02 Date of Discharge Jan 25, 2021 Attending Physician: SU VENTURA DO Discharge Summary PROCEDURES PERFORMED DURING STAY: [None]. ADMITTING/DISCHARGE DIAGNOSES: 1. Acute Pancreatitis. 2. Alcohol Use Disorder 3. Tobacco Use Disorder 4. Anxiety 5. GERD 6. Insomnia COMPLICATIONS/CHIEF COMPLAINT: Acute Pancreatitis. HISTORY OF PRESENT ILLNESS: Mr. Connor is a 30yo M w/ hx of alcohol-induced pancreatitis (last admission 05/06/20), alcohol use disorder, tobacco use disorder, bilateral PE (2017), and back pain who presented on 01/21/20 with sudden abdominal LUQ pain radiating to the back. In the ED, the patient reported waking up the day before with sharp pain 9/10, nausea w/ food, 2 episodes of vomiting, and tenderness on swallowing food. Patient reported he was sober for 7 months, but began drinking again 2 months ago. He reported pint of vodka daily and his last drink was 2 days before admission. Patient had elevated lipase (4289U/L). He denied any fever, chills, cough, chest pain, dyspnea, diarrhea, or dysuria. He denied any new medication or changes to medication. HOSPITAL COURSE: On admission, patient was given IV fluids, bowel rest, IV morphine for pain, Z ofran, and supportive care for his acute pancreatitis. He was placed on CIWA protocol w/ lorazepam, multivitamin, thiamine, and folic acid for alcohol use disorder. He declined a nicotine patch for tobacco use disorder. He was given SCD & TEDS for DVT prophylaxis. Day 2 hospital stay, CT abdomen pelvis w/ IV contrast confirmed acute pancreatitis w/o fluid collection or pseudocyst. Patient was unable to tolerate oral medication and placed on aggressive IV fluids. By day 3, the patients pain subsided. Patient was able to move on from a liquid diet by day 4 and tolerated his first evening meal with nausea and GERD-like chest pain. No vomiting. By day 5, patient was able to tolerate solid foods w/ nausea and GERD-like chest pain. Abdominal pain and tenderness to palpation present in the LUQ and LLQ. Patient would like to seek help for alcohol cessation. DISCHARGE MEDICATIONS: Please see below. ALLERGIES: Please see below. PHYSICAL EXAMINATION ON DISCHARGE: VITAL SIGNS: Please see below. GENERAL: Well-appearing male, in no acute distress. HEENT: Atraumatic. CARDIOVASCULAR EXAMINATION: Normal heart sounds. 2+ pedal pulses. RESPIRATORY EXAMINATION: Clear to auscultation. ABDOMINAL EXAMINATION: Normal bowel sounds. Tender to palpation in LUQ & LLQ. EXTREMITIES: Denies numbness and tingling. No lower extremity edema. NEUROLOGICAL EXAMINATION: Alert, awake, and oriented X3 LABORATORY DATA: Please see below. IMAGING: CT Abdomen Pelvis w/ IV Contrast Report As: There are findings compatible with pancreatitis. There is no associated pseudocyst. No other evidence of free fluid or fluid collection. No other significant finding. PROGNOSIS: Fair. ACTIVITY: As tolerated. DIET: No restrictions. DISPOSITION: Home. DISCHARGE PLAN/INSTRUCTIONS: 1. Followup with PCP in 7 days. ITEMS TO FOLLOWUP ON ON OUTPATIENT: 1. Followup with PCP in 7 days. 2. Alcohol cessation at [facility] or program. DISCHARGE CONDITION: Stable. TIME SPENT ON DISCHARGE: 45 minutes. Vital Signs/I&Os Vital Signs Date Time Temp Pulse Resp B/P (MAP) Pulse Ox O2 Delivery O2 Flow Rate FiO2 01/25/21 09:56 50 155/95 01/25/21 08:07 17 01/25/21 06:03 Room Air 01/25/21 06:00 97.9 96 I&O- Last 24 Hours up to 6 AM 01/25/21 06:00 Intake Total 1380 ml Output Total 1050 ml Balance 330 ml Laboratory Data Labs 24H Laboratory Tests 2 01/25/21 05:45: Nucleated Red Blood Cells % (auto) 0.0, Anion Gap 7L, Glomerular Filtration Rate > 60.0, Calcium Level 8.0L, Magnesium Level 2.1, Lipase 506H CBC/BMP Laboratory Tests 01/25/21 05:45 Discharge Medications Scheduled Mirtazapine (Remeron) 30 Mg Tablet, 30 MG PO QHS, (Reported) Omeprazole (Omeprazole) 40 Mg Capsule.dr, 40 MG PO DAILY, (Reported) Scheduled PRN Hydroxyzine HCl (Hydroxyzine HCl) 10 Mg Tablet, 10 MG PO Q6H PRN for ANXIETY, (Reported) Allergies Coded Allergies: No Known Allergies (Unverified , 01/28/20) GME ATTESTATION GME ATTESTATION My faculty preceptor for this patient encounter was physically present during the encounter and was fully available. All aspects of the patient interview, examination, medical decision making process, and medical care plan development were reviewed and approved by the faculty preceptor. The faculty preceptor is aware and concurs with the plan as stated in the body of this note and will attest to such by his/her cosignature. ADALBERTO HAYDEN OMS-3 Jan 25, 2021 11:22
== END 2021-01-25 14:07 | disposition home or self-care (01) | DRG 440 ==
LOC: M ED 10:24 → M ED INP 14:02 → ENRESERV 14:15 → M MS5PR 15:15
PROVIDERS: ADMIT Internal Medicine; ATTEND Neuromusculoskeletal Medicine & OMM
DX: K85.20 Alcohol induced acute pancreatitis without necrosis or infection (principal); Z72.0 Tobacco use; F41.9 Anxiety disorder, unspecified; K21.9 Gastro-esophageal reflux disease without esophagitis; F10.10 Alcohol abuse, uncomplicated; F17.200 Nicotine dependence, unspecified, uncomplicated; G47.00 Insomnia, unspecified; Z86.711 Personal history of pulmonary embolism

== ENCOUNTER 2021-08-13 18:16 | Inpatient (IN) | payer OTHER ==
[~2021-08-13] VITALS: Ht 177.8 cm; Wt 124.7 kg
[~2021-08-13 18:16] MED LIST changes: +OMEP40CA4 PO
[2021-08-13] MEDS ORDERED: NEXI20CA33 PO (18:28)
[2021-08-13 19:29] LABS: BASO # 0.1 10^3/uL (0.0-0.2); BASO % 0.4 % (0.0-1.0); EOS # 0.1 10^3/uL (0.0-0.5); EOS % 0.9 % (0.0-3.0); HEMATOCRIT 45.9 % (42.0-52.0); LYMPH # 1.7 10^3/uL (1.5-5.0); LYMPH % 12.4 % (24.0-44.0); MEAN CORPUSCULAR HEMOGLOBIN 31.9 pg (27.0-33.0); MEAN CORPUSCULAR HGB CONC 34.9 g/dl (32.0-36.5); MEAN CORPUSCULAR VOLUME 91.6 fl (80.0-96.0); MONO # 0.9 10^3/uL (0.0-0.8); MONO % 6.4 % (2.0-8.0); NEUTROPHILS % 79.4 % (36.0-66.0); PLATELET COUNT, AUTOMATED 177 10^3/uL (150-450); RED BLOOD COUNT 5.01 10^6/uL (4.30-6.10); WHITE BLOOD COUNT 13.8 10^3/uL (4.0-10.0)
[2021-08-13 19:55] LABS: ALBUMIN 3.9 GM/DL (3.2-5.2); ALT/SGPT 59 U/L (12-78); BILIRUBIN,DIRECT 0.3 MG/DL (0.0-0.2); BILIRUBIN,TOTAL 0.8 MG/DL (0.2-1.0); BLOOD UREA NITROGEN 14 MG/DL (7-18); CALCIUM LEVEL 9.7 MG/DL (8.5-10.1); CARBON DIOXIDE LEVEL 28 MEQ/L (21-32); CHLORIDE LEVEL 107 MEQ/L (98-107); CREATININE FOR GFR 1.17 MG/DL (0.70-1.30); GLOMERULAR FILTRATION RATE > 60.0 (>60); GLUCOSE, FASTING 103 MG/DL (70-100); LIPASE 2297 U/L (73-393); POTASSIUM SERUM 4.2 MEQ/L (3.5-5.1); SODIUM LEVEL 140 MEQ/L (136-145); TOTAL PROTEIN 7.6 GM/DL (6.4-8.2)
[2021-08-13] MEDS ORDERED: NS 1,000 ML IV ONE (20:10)
[2021-08-13] MEDS ORDERED: ISOVUE-370 76% 100ML VIAL As Ordered ONE (20:10)
[2021-08-13] MEDS ORDERED: ONDANSETRON 4MG/2ML VIAL IV ONE (20:55)
[2021-08-13] MEDS ORDERED: HOME MED LIST COMPLETE! XX SCH (21:05)
[2021-08-13] MEDS: HYDROMORPHONE HCL 0.5 MG/ 0.5 ML SYRINGE (J1170 PER 1) IV PRN (21:10)
[2021-08-13] MEDS: NS 1,000 ML IV SCH (22:30)
[2021-08-13 23:21] LABS: CHOLESTEROL LEVEL 194 MG/DL (<200); CHOLESTEROL RISK RATIO 3.464 (<5); HDL CHOLESTEROL 56 MG/DL (>40); LDL CHOLESTEROL 103 MG/DL (<100); NON-HDL-C 138 MG/DL; TRIGLYCERIDES LEVEL 175 MG/DL (<150)
[2021-08-14] MEDS: HYDROMORPHONE HCL 0.5 MG/ 0.5 ML SYRINGE (J1170 PER 1) IV PRN (00:02)
[2021-08-14 02:02] VITALS: BP 165/111
[2021-08-14] MEDS: MORPHINE 4 MG/ML 1ML VIAL/SYRINGE (J2270) IV PRN ×5 (02:17→18:54)
[2021-08-14] MEDS: NS 1,000 ML IV SCH ×3 (05:48→18:56)
[2021-08-14 06:00] VITALS: BP 150/98
[2021-08-14 06:13] LABS: HEMATOCRIT 40.1 % (42.0-52.0); HEMOGLOBIN 14.3 g/dl (13.5-17.5); MEAN CORPUSCULAR HEMOGLOBIN 32.7 pg (27.0-33.0); MEAN CORPUSCULAR HGB CONC 35.7 g/dl (32.0-36.5); MEAN CORPUSCULAR VOLUME 91.8 fl (80.0-96.0); PLATELET COUNT, AUTOMATED 151 10^3/uL (150-450); RED BLOOD COUNT 4.37 10^6/uL (4.30-6.10); WHITE BLOOD COUNT 12.9 10^3/uL (4.0-10.0)
[2021-08-14 06:39] LABS: ALBUMIN 3.3 GM/DL (3.2-5.2); ALT/SGPT 41 U/L (12-78); BILIRUBIN,TOTAL 0.8 MG/DL (0.2-1.0); BLOOD UREA NITROGEN 9 MG/DL (7-18); CALCIUM LEVEL 8.4 MG/DL (8.5-10.1); CARBON DIOXIDE LEVEL 25 MEQ/L (21-32); CHLORIDE LEVEL 109 MEQ/L (98-107); CREATININE FOR GFR 1.02 MG/DL (0.70-1.30); GLOMERULAR FILTRATION RATE > 60.0 (>60); GLUCOSE, FASTING 100 MG/DL (70-100); POTASSIUM SERUM 3.6 MEQ/L (3.5-5.1); SODIUM LEVEL 141 MEQ/L (136-145)
[2021-08-14] MEDS: ENOXAPARIN 40MG/0.4ML SYRINGE (J1650 PER 10MG) SC SCH (09:05)
[2021-08-14] MEDS: PANTOPRAZOLE 40MG VIAL (C9113 PER 1) IV SCH (09:06)
[2021-08-14] MEDS ORDERED: KETOROLAC 30 MG/ML 1ML VIAL IV ONE (09:50)
[2021-08-14 14:00] VITALS: BP 124/81
[2021-08-14] MEDS: KETOROLAC 30 MG/ML 1ML VIAL IV PRN (16:51)
[2021-08-14] MEDS ORDERED: ONDANSETRON 4MG/2ML VIAL IV PRN (17:35)
[2021-08-14] MEDS ORDERED: NALOXONE INJ 0.4MG/1ML VIAL (J2310 PER 1MG) IV PRN (21:05)
[2021-08-14 21:47] VITALS: BP 139/95
[2021-08-14] MEDS ORDERED: MORPHINE 4 MG/ML 1ML VIAL/SYRINGE (J2270) IV ONE (22:00)
[2021-08-15] MEDS: KETOROLAC 30 MG/ML 1ML VIAL IV PRN ×2 (01:02→20:19)
[2021-08-15] MEDS: NS 1,000 ML IV SCH ×3 (01:04→18:37)
[2021-08-15] MEDS: MORPHINE 4 MG/ML 1ML VIAL/SYRINGE (J2270) IV PRN ×4 (05:14→18:16)
[2021-08-15 06:00] VITALS: BP 115/69
[2021-08-15 07:36] LABS: BASO % 0.4 % (0.0-1.0); EOS # 0.2 10^3/uL (0.0-0.5); EOS % 1.7 % (0.0-3.0); HEMATOCRIT 35.8 % (42.0-52.0); HEMOGLOBIN 12.6 g/dl (13.5-17.5); LYMPH # 2.4 10^3/uL (1.5-5.0); LYMPH % 25.3 % (24.0-44.0); MEAN CORPUSCULAR HEMOGLOBIN 32.5 pg (27.0-33.0); MEAN CORPUSCULAR HGB CONC 35.2 g/dl (32.0-36.5); MEAN CORPUSCULAR VOLUME 92.3 fl (80.0-96.0); MONO # 0.6 10^3/uL (0.0-0.8); MONO % 6.7 % (2.0-8.0); NEUTROPHILS # 6.2 10^3/uL (1.5-8.5); NEUTROPHILS % 65.3 % (36.0-66.0); PLATELET COUNT, AUTOMATED 129 10^3/uL (150-450); RED BLOOD COUNT 3.88 10^6/uL (4.30-6.10); WHITE BLOOD COUNT 9.5 10^3/uL (4.0-10.0)
[2021-08-15 07:46] LABS: BLOOD UREA NITROGEN 11 MG/DL (7-18); CALCIUM LEVEL 7.7 MG/DL (8.5-10.1); CARBON DIOXIDE LEVEL 24 MEQ/L (21-32); CHLORIDE LEVEL 111 MEQ/L (98-107); CREATININE FOR GFR 0.87 MG/DL (0.70-1.30); GLOMERULAR FILTRATION RATE > 60.0 (>60); GLUCOSE, FASTING 76 MG/DL (70-100); MAGNESIUM LEVEL 1.6 MG/DL (1.8-2.4); POTASSIUM SERUM 3.5 MEQ/L (3.5-5.1); SODIUM LEVEL 142 MEQ/L (136-145)
[2021-08-15] MEDS: PANTOPRAZOLE 40MG VIAL (C9113 PER 1) IV SCH (08:45)
[2021-08-15] MEDS: ENOXAPARIN 40MG/0.4ML SYRINGE (J1650 PER 10MG) SC SCH (08:45)
[2021-08-15] MEDS: MAG SULF 1GM/100ML (MAG RUN) 1 GM in IV 1 EA IV SCH ×2 (09:51→11:12)
[2021-08-15] MEDS ORDERED: hydrOXYzine 10 MG TAB PO PRN (10:50)
[2021-08-15 14:00] VITALS: BP 143/89
[2021-08-15] MEDS ORDERED: MIRTAZAPINE 15 MG TAB PO SCH (21:00)
[2021-08-15 21:54] VITALS: BP 149/75
[2021-08-16] MEDS: MORPHINE 4 MG/ML 1ML VIAL/SYRINGE (J2270) IV PRN (00:18)
[2021-08-16 06:00] VITALS: BP 138/83
[2021-08-16] MEDS ORDERED: ACETAMINOPHEN TAB 650MG DOSE (2X325MG) PO PRN (08:05)
[2021-08-16] MEDS: NS 1,000 ML IV SCH (08:07)
[2021-08-16] MEDS: PANTOPRAZOLE 40MG VIAL (C9113 PER 1) IV SCH (08:15)
[2021-08-16] MEDS: ENOXAPARIN 40MG/0.4ML SYRINGE (J1650 PER 10MG) SC SCH (08:15)
[2021-08-16 08:21] LABS: BASO # 0.1 10^3/uL (0.0-0.2); BASO % 0.7 % (0.0-1.0); EOS # 0.3 10^3/uL (0.0-0.5); EOS % 3.7 % (0.0-3.0); HEMATOCRIT 38.2 % (42.0-52.0); HEMOGLOBIN 13.3 g/dl (13.5-17.5); LYMPH # 2.3 10^3/uL (1.5-5.0); LYMPH % 33.8 % (24.0-44.0); MEAN CORPUSCULAR HEMOGLOBIN 31.7 pg (27.0-33.0); MEAN CORPUSCULAR HGB CONC 34.8 g/dl (32.0-36.5); MONO # 0.6 10^3/uL (0.0-0.8); NEUTROPHILS # 3.7 10^3/uL (1.5-8.5); NEUTROPHILS % 53.7 % (36.0-66.0); PLATELET COUNT, AUTOMATED 162 10^3/uL (150-450); WHITE BLOOD COUNT 6.8 10^3/uL (4.0-10.0)
[2021-08-16 08:46] LABS: BLOOD UREA NITROGEN 6 MG/DL (7-18); CALCIUM LEVEL 8.2 MG/DL (8.5-10.1); CARBON DIOXIDE LEVEL 27 MEQ/L (21-32); CHLORIDE LEVEL 111 MEQ/L (98-107); CREATININE FOR GFR 0.92 MG/DL (0.70-1.30); GLOMERULAR FILTRATION RATE > 60.0 (>60); GLUCOSE, FASTING 78 MG/DL (70-100); MAGNESIUM LEVEL 2.4 MG/DL (1.8-2.4); POTASSIUM SERUM 3.6 MEQ/L (3.5-5.1); SODIUM LEVEL 143 MEQ/L (136-145)
== END 2021-08-16 14:35 | disposition home or self-care (01) | DRG 440 ==
LOC: M ED 18:16 → M ED INP 22:31 → ENRESERV 08-14 01:03 → M MS5PR 08-14 02:24
PROVIDERS: ADMIT Family Medicine; ATTEND Internal Medicine
DX: K85.90 Acute pancreatitis without necrosis or infection, unspecified (principal); E66.9 Obesity, unspecified; Z68.33 Body mass index [BMI] 33.0-33.9, adult; E83.42 Hypomagnesemia; K21.9 Gastro-esophageal reflux disease without esophagitis; F41.8 Other specified anxiety disorders; F17.200 Nicotine dependence, unspecified, uncomplicated; F32.A Depression, unspecified; F10.10 Alcohol abuse, uncomplicated; D64.9 Anemia, unspecified; Z86.711 Personal history of pulmonary embolism

== ENCOUNTER 2021-12-19 15:48 | Emergency (ER) | payer OTHER ==
[~2021-12-19] VITALS: Ht 177.8 cm; Wt 100.0 kg
[~2021-12-19 15:48] MED LIST changes: +NEXI20CA33 PO
[2021-12-19] MEDS ORDERED: TRAZ-252 PO (16:06)
[2021-12-19] MEDS ORDERED: PERCOCET 5MG/325MG TAB PO ONE (16:50)
[2021-12-19] MEDS ORDERED: AUGMENTIN 875 MG TAB PO ONE (16:50)
[2021-12-19] MEDS ORDERED: AMOX875T2 PO (17:46)
[2021-12-19] MEDS ORDERED: IBUP-1022 PO (17:46)
[2021-12-19 18:10] VITALS: BP 159/92
== END 2021-12-19 18:14 | disposition home or self-care (01) ==
LOC: M ED 15:48
DX: S61.431A Puncture wound without foreign body of right hand, initial encounter (principal); S61.432A Puncture wound without foreign body of left hand, initial encounter; W54.0XXA Bitten by dog, initial encounter; F17.200 Nicotine dependence, unspecified, uncomplicated; Y92.009 Unspecified place in unspecified non-institutional (private) residence as the place of occurrence of the external cause; Y93.9 Activity, unspecified; Y99.9 Unspecified external cause status; Z79.899 Other long term (current) drug therapy

== ENCOUNTER → 2022-07-27 | Outpatient (CLI) | payer OTHER ==
[~2022-07-27] MED LIST changes: +AMOX875T2 PO; +IBUP-1022 PO; +PROHANCE 279.3MG/ML 15ML VIAL ONE; +PROHANCE 279.3MG/ML 5ML VIAL ONE; +TRAZ-252 PO
== END ==
LOC: M PLAIMG 08:53
PROVIDERS: ATTEND Orthopaedic Surgery
DX: M25.532 Pain in left wrist (principal)
CPT/HCPCS: 73223; A9576

== ENCOUNTER 2024-02-16 00:13 | Emergency (ER) | payer OTHER ==
[~2024-02-16] VITALS: Ht 175.3 cm; Wt 90.9 kg
[~2024-02-16 00:13] MED LIST changes: -MIRT-60 PO; +MIRT-89 PO; -PROHANCE 279.3MG/ML 15ML VIAL ONE; -PROHANCE 279.3MG/ML 5ML VIAL ONE
[2024-02-16 00:36] VITALS: TEMP 98.8
[2024-02-16 02:14] LABS: BASO # 0.1 10^3/uL (0.0-0.2); BASO % 0.5 % (0.0-1.0); EOS # 0.1 10^3/uL (0.0-0.5); HEMATOCRIT 38.5 % (42.0-52.0); HEMOGLOBIN 13.6 g/dl (13.5-17.5); LYMPH # 2.4 10^3/uL (1.5-5.0); LYMPH % 22.4 % (24.0-44.0); MEAN CORPUSCULAR HEMOGLOBIN 32.5 pg (27.0-33.0); MEAN CORPUSCULAR HGB CONC 35.3 g/dl (32.0-36.5); MEAN CORPUSCULAR VOLUME 91.9 fl (80.0-96.0); MONO # 0.9 10^3/uL (0.0-0.8); MONO % 8.4 % (2.0-8.0); NEUTROPHILS # 7.3 10^3/uL (1.5-8.5); NEUTROPHILS % 67.4 % (36.0-66.0); PLATELET COUNT, AUTOMATED 185 10^3/uL (150-450); RED BLOOD COUNT 4.19 10^6/uL (4.30-6.10); WHITE BLOOD COUNT 10.8 10^3/uL (4.0-10.0)
[2024-02-16 02:35] LABS: BLOOD UREA NITROGEN 15 MG/DL (9-23); CALCIUM LEVEL 9.6 MG/DL (8.5-10.1); CARBON DIOXIDE LEVEL 27 MMOL/L (20-31); CHLORIDE LEVEL 107 MMOL/L (98-107); CK-MB VALUE MASS 1.9 NG/ML (<3.6); CPK CREATINE PHOSPHOKINASE 458 U/L (46-171); CREATININE FOR GFR 1.24 MG/DL (0.70-1.30); GLOMERULAR FILTRATION RATE > 60.0 (>60); GLUCOSE, FASTING 93 MG/DL (60-100); MAGNESIUM LEVEL 1.9 MG/DL (1.8-2.4); MB/CK RELATIVE INDEX 0.41 (< OR =4); POTASSIUM SERUM 3.7 MMOL/L (3.5-5.1); SODIUM LEVEL 139 MMOL/L (136-145)
[2024-02-16 02:36] LABS: FREE T4 1.43 NG/DL (0.89-1.76); THYROID STIMULATING HORMONE 0.686 uIU/ML (0.55-4.78)
[2024-02-16] MEDS ORDERED: ISOVUE-370 76% 100ML VIAL As Ordered ONE (02:39)
[2024-02-16] MEDS: KETOROLAC 30 MG/ML 1ML VIAL IV ONE (03:49)
[2024-02-16 04:09] VITALS: BP 116/58; O2SAT 96
== END 2024-02-16 04:11 | disposition home or self-care (01) ==
LOC: M ED 00:13
DX: R07.9 Chest pain, unspecified (principal); R55 Syncope and collapse; F12.10 Cannabis abuse, uncomplicated; Z86.711 Personal history of pulmonary embolism; Z79.899 Other long term (current) drug therapy
CPT/HCPCS: 70450; 71275; 80048; 82550; 82553; 83735; 84439; 84443; 84484; 85025; 93005; 93041; 94760; 96374; 99285; J1885; Q9967